=== PATIENT | female | born 1940 | race Caucasian/White ===

== ENCOUNTER 2017-11-18 17:30 | Inpatient (IN) | payer MEDICARE, SELFPAY ==
[2017-11-18] VITALS (12 sets, daily range): BP systolic 105–160; BP diastolic 49–84; PULSE 53–90; RESP 14–22; TEMP 36.1–36.4; O2SAT 97–100; BMI 19.9; BMI 19.3
--- NOTE | 2017-11-18 17:46 | CT_ITS ---
STUDY: CT BRAIN WITHOUT CONTRAST REASON FOR EXAM: Female, 77 years old. Slip and fall. RADIATION DOSAGE (If Supplied By Facility): CTDIvol = ( 44.99 ) mGy, DLP = ( 745.49 ) mGycm TECHNIQUE: Transaxial CT imaging of the brain was performed without administration of intravenous contrast material. Individualized dose optimization techniques were used for this CT. COMPARISON: 10/09/2016 FINDINGS: Normal soft tissue structures. Normal calvarium. There is moderate cerebral atrophy with widening of the extra-axial spaces and ventricular dilatation. There are areas of decreased attenuation within the white matter tracts of the supratentorial brain, consistent with microvascular disease changes. Normal basal ganglia and thalami. Normal brainstem. There is moderate cerebellar atrophy. There is no intracranial hemorrhage. There are no findings of an acute ischemic infarction. There is near complete opacification of the left maxillary sinus and ethmoid paranasal sinuses. CT/Brain/Head without Contrast IMPRESSION: 1. No acute intracranial pathology. 2. Left maxillary sinus and ethmoid paranasal sinus disease Electronically Signed: Gualberto Briseno DO at 21:11 EST Tel , Service support ,
--- NOTE | 2017-11-18 17:46 | RAD_ITS ---
STUDY: X-RAY CHEST REASON FOR EXAM: Female, 77 years old. Status post fall TECHNIQUE: Single frontal view of the chest. COMPARISON: 04/17/2016 FINDINGS: Right shoulder dislocation. There is hyperinflation of the lungs consistent with chronic obstructive lung disease (COPD). Worsening scarring in the right upper lobe. Lungs are otherwise clear. Normal size heart. Normal mediastinum and abundio. Normal visualized pulmonary arteries. Normal visualized aortic arch and descending thoracic aorta. There are diffuse degenerative changes of the visualized thoracic spine. There is degenerative osteoarthritis of the bilateral shoulders. There is no demonstrated abnormality of the visualized soft tissue structures of the upper abdomen. RAD/Chest 1 View (Portable) IMPRESSION: Dislocation of the right shoulder. Scarring in the right upper lobe appears worsening. Lungs are otherwise clear. Electronically Signed: Gualberto Briseno DO at 19:07 EST Tel , Service support ,
--- NOTE | 2017-11-18 17:47 | RAD_ITS ---
STUDY: X-RAY - PELVIS REASON FOR EXAM: Female, 77 years old. Status post fall TECHNIQUE: One view of the pelvis was obtained. COMPARISON: None. FINDINGS: Status post left hip arthroplasty without fracture or dislocation. No evidence of right hip fracture. Osseous degenerative change of the lower lumbar spine and both SI joints. RAD/Pelvis 1 or 2 Views IMPRESSION: No acute findings Electronically Signed: Gualberto Briseno DO at 19:08 EST Tel , Service support ,
--- NOTE | 2017-11-18 17:47 | RAD_ITS ---
STUDY: X-RAY - RIGHT SHOULDER REASON FOR EXAM: Female, 77 years old. Status post fall TECHNIQUE: 2 view(s) of the shoulder. COMPARISON: None. FINDINGS: Acute dislocation of the right shoulder with comminuted fracture of the humeral head and proximal humerus. RAD/Shoulder min 2 Views IMPRESSION: As above Electronically Signed: Gualberto Briseno DO at 19:59 EST Tel , Service support ,
--- NOTE | 2017-11-18 17:47 | EKG12_ITS ---
Test Reason : FALL Blood Pressure : / mmHG Vent. Rate : 070 BPM Atrial Rate : 070 BPM P-R Int : 080 ms QRS Dur : 084 ms QT Int : 448 ms P-R-T Axes : 000 058 -54 degrees QTc Int : 483 ms Somatic/motion artifact Sinus rhythm with short IA with Premature supraventricular complexes Nonspecific ST and T wave abnormality Confirmed by HARDEEP IZQUIERDO, HIRA ([id number]), staff editor NIA HERCULES ([id number] on 11/21/2017 2:13:49 PM Referred By: ANTON Confirmed By:HIRA MEIER MD
[2017-11-18 18:00] LABS: Absolute Lymphocyte Count 1.77 X10^3/ul (0.83-4.51); Absolute Neutrophil Count 9.8 X10^3/uL (2.0-7.7); Eosinophil# 0.02 X10^3/uL; Eosinophils% 0.2 % (0-5); Hematocrit 39.2 % (37-47); Hemoglobin 12.1 g/dl (12.0-15.0); Lymphocyte # 1.77 X10^3/ul (4.0); Mean Corp Hgb Conc 30.9 g/gl (32-36); Mean Corpuscular Hgb 30.1 pg (27.0-32.0); Mean Corpuscular Volume 97.5 fL (81-99); Mean Platelet Vol. 11.1 fl (6.2-12.0); Monocyte# 1.02 X10^3/uL; Neutrophil # 9.84 X10^3/uL (2.7-7.7); Neutrophil % 77.6 % (47-70); Platelet Count 507 K/mm3 (150-450); RBC Distribution Width CV 14.1 % (11.6-14.6); RBC Distribution Width SD 49.1 fl (35.1-43.9); Red Blood Count 4.02 M/mm3 (4.2-5.4); White Blood Count 12.7 K/mm3 (4.4-11.0)
[2017-11-18 18:01] LABS: POSITIVE COUNT NO; POSITIVE DIFFERENTIAL NO; POSITIVE MORPHOLOGY NO
[2017-11-18] MEDS: 0.9% Normal Saline 1,000 ML 1000 ML IV (18:05)
[2017-11-18 18:21] LABS: Bacteria 0 SEEN /hpf (None Seen); Squamous Epithelial Cells - UA 0 SEEN /hpf (5-10)
[2017-11-18 18:24] LABS: Lactic Acid 1.9 mmol/L (0.4-2.0)
[2017-11-18 18:25] LABS: Anion Gap 12 (5-15); BUN 52 mg/dL (7-18); BUN/Creat Ratio 67.4 RATIO (10-20); Calcium,Total 9.8 mg/dL (8.5-10.1); Chloride 116 mmol/L (98-107); Creatinine, Serum 0.77 mg/dL (0.55-1.02); EST Glomerular Filtration Rate 77 mL/min (>60); Est Glom Filt Rate - Afr Amer 94 mL/min (>60); Estimated Creatinine Clearance 39.82 ml/min; Glucose 115 mg/dL (70-110); Potassium 3.4 mmol/L (3.5-5.1); Sodium Level 154 mmol/L (136-145)
[2017-11-18 18:35] LABS: Color, Urine Yellow (Yellow); Glucose, Dipstick Normal (Normal); Ketone-Dipstick 15 mg/dl (Negative); Leukocyte Esterase-Dipstick 25 /ul (Negative); Nitrite-Dipstick Negative (Negative); Occult Blood-Urine Negative /ul (Negative); Protein-Dipstick Negative (Negative); Urine Bilirubin Dipstick Negative (Negative); Urine Clarity Clear (Clear); Urine Urobilinogen Normal (Normal)
[2017-11-18 18:46] LABS: CPK Total, Creatine Kinase 219 U/L (26-192)
[2017-11-18 18:52] LABS: Hyaline Cast 0-5 SEEN /lpf (0-5)
[2017-11-18 18:55] LABS: Red Blood Cells-Urine 0-5 SEEN /hpf (0-5)
[2017-11-18 18:56] LABS: Mucous, Urine 1+ /hpf (<or=2+)
[2017-11-18 18:57] LABS: White Blood Cells 10-25 SEEN /hpf (0-5)
--- NOTE | 2017-11-18 19:03 | RAD_ITS ---
STUDY: X-RAY - RIGHT SHOULDER REASON FOR EXAM: Female, 77 years old. Post shoulder reduction. TECHNIQUE: 2 view(s) of the shoulder. COMPARISON: Prior shoulder radiograph of November 18, 2017. Prior chest radiograph of April 17, 2016 FINDINGS: The glenohumeral joint is reduced to anatomic location. Mild degenerative changes of the acromioclavicular joint which is normally located. Old right clavicle fracture. Comminuted fracture of the humeral neck with impaction and mild medial anterior displacement. Fracture related soft tissue swelling. Infiltrate and volume loss in the right upper lobe included in the [id number]. RAD/Shoulder min 2 Views IMPRESSION: Anatomic reduction of the glenohumeral joint. Acute comminuted right humeral neck fracture with mild medial and anterior displacement. Mild degenerative change of the acromioclavicular joint. Old clavicle fracture. Infiltrate and volume loss in the right upper lobe as described on portable chest radiograph of the same day. Electronically Signed: Maura Shore MD at 21:33 EST , Service support ,
--- NOTE | 2017-11-18 19:32 | ED.VISSUMM ---
- ER Visit Summary Date of Service: 11/18/17 Chief Complaint: Fall History of Present Illness: The patient is a [address] Shah. She is a poor informant. She fell she believes 6 days ago. States that she fell over her walker. She is unsure whether she had a loss of consciousness. She reports that she has right shoulder pain with any movement. She denies any hip, neck, back, or head pain. She reports that she has chest pain that is not too bad. Patient complains of a cough is productive green sputum without blood. She also complains of generalized weakness. Family reports that they last saw her 5 days ago and she has not gotten her newspaper since that time. Patient reports that she was unable to get back up and has been scooting around in her house. Physical Examination: Vitals: Stable. Afebrile. General: Well-nourished and well-developed. Head: Normocephalic contusions to the bottom of her chin. Neck: Supple, no lymphadenopathy. No JVD. Nontender. Cardiovascular: Regular rate and rhythm. 2 out of 6 systolic murmur. Respiratory: No respiratory distress. Clear to auscultation bilaterally. Abdominal: Soft, moderate suprapubic tenderness with a distended bladder, nondistended, normal bowel sounds. No guarding, rebound, or peritoneal signs. Back: Nontender. Extremities: Obvious deformity of her right shoulder with an anterior dislocation. Severely tender on palpation. She has contusions over her right shoulder and clavicle. There is also contusion over the right greater trochanter. However, she has no pain here. No pain with internal/external rotation of her hip.. Skin: Normal color, no rash. Neurologic: Alert and oriented ?3. Cranial nerves II through XII are intact. Normal strength and sensation. Psych: Normal affect. Test Results: EKG is sinus at [address] changes. Troponin was less than 0.02. CPK is 219. Lactic acid is 1.9. UA shows a UTI. Chem-7 is marked for sodium 154, potassium 3.4, chloride 116, BUN of 52, glucose 115. CBC is marked for white count of 12.7, platelets 507, segmented neutrophils 70, lymphs at 14. Right shoulder x-ray shows a proximal humeral fracture with an anterior dislocation. Chest x-ray shows a right upper lobe infiltrate. Pelvis x-ray shows no acute disease. CT brain shows chronic changes. Emergency Department Course and Treatment: Patient was given 2 L of normal saline. She had blood cultures obtained and was given Levaquin IV. She had procedural sedation undertaken with propofol and her shoulder was reduced. She was given fentanyl IV prior to this. She tolerated it well. She was then placed in a sling and swath. Treatment Plan: The patient was discussed with Dr. Bell in the hospitalist. She will be admitted to the hospital for further evaluation and treatment. Disposition: Admitted in serious condition. Impression: 1. Pneumonia, community-acquired. 2. UTI. 3. Dehydration. 4. Fall. 5. Right proximal humerus fracture. 6. Right shoulder dislocation. 7. Procedural sedation. 8. Reduction right shoulder dislocation. This note was generated with [employer] dictation software. It may contain incorrect words, spelling, and punctuation that were not noted in review of the chart prior to signing ED Disposition - Plan for ED Patient: Chief Complaint: Fall Referrals: Marilee Shah MD [Primary Care Provider] -
[2017-11-18] MEDS: fentaNYL 100 MCG/2 ML Ampul 50 MCG IV (19:34)
[2017-11-18] MEDS: Propofol 200 MG/20 ML Vial IV BOLUS (20:20)
--- NOTE | 2017-11-18 21:35 | PCM.HP.STD ---
Problem List (1) Hyperlipidemia Status: Chronic Qualifiers: Hyperlipidemia type: unspecified Qualified Code(s): E78.5 - Hyperlipidemia, unspecified (2) Hypertension Status: Chronic Qualifiers: Hypertension type: essential hypertension Qualified Code(s): I10 - Essential (primary) hypertension (3) Depression Status: Chronic Qualifiers: Depression Type: unspecified Qualified Code(s): F32.9 - Major depressive disorder, single episode, unspecified (4) Rhabdomyolysis Status: Acute (5) Right humeral fracture Status: Acute Qualifiers: Encounter type: initial encounter Humerus Location: surgical neck Fracture type: closed Fracture morphology: 2-part Fracture alignment: displaced Qualified Code(s): S42.221A - 2-part displaced fracture of surgical neck of right humerus, initial encounter for closed fracture (6) Dislocation of right shoulder joint Status: Acute Qualifiers: Encounter type: initial encounter Qualified Code(s): S43.004A - Unspecified dislocation of right shoulder joint, initial encounter (7) Fall Status: Acute Qualifiers: Encounter type: initial encounter Qualified Code(s): W19.XXXA - Unspecified fall, initial encounter (8) Pneumonia Status: Acute Qualifiers: Pneumonia type: due to unspecified organism Laterality: right Lung location: upper lobe of lung Qualified Code(s): J18.1 - Lobar pneumonia, unspecified organism (9) UTI (urinary tract infection) Status: Acute Qualifiers: Urinary tract infection type: acute cystitis Hematuria presence: without hematuria Qualified Code(s): N30.00 - Acute cystitis without hematuria (10) Urinary retention Status: Acute History of Present Illness Date of Admission: 11/18/17 Chief Complaint: Fall, R shoulder and arm pain, Recent cough The patient is a 77 y/o F w/ PMHx: HTN, HLD, Depression, Frequent Fall History who presents to the [facility] ED on 11/18/17 w/ history of mechanical fall while attempting to turn on a lamp, noted to have fallen over her walker, landing hard on her R shoulder with following severe pain, deformity and inability to get up of the floor, likely for 4-5 days. She notes she urinated on herself at least twice during that timeline. She notes she was unable to reach the phone. Family eventually found her on the floor and EMS was called. In the ED work-up included T 97, HR 60-70, + Orthostatic VS, BP 129/60, RR 14, 100% on 2L NC, CBC w/ WBC 12.7, Hgb 12.1, Plts 507 with L shift, BMP w/ Na 154, K 3.4, Chl 116, BUN/Cr 52/0.77, glucose 115, TCK 219, LA 1.9, trop < 0.02, UA not marked appearing, UCx pending, CXR w/ dislocation R shoulder, scarring RUL worse than prior CXR, CT Head without acute findings aside L maxillary sinus and ethmoid paranasal sinus disease, plain film pelvis unremarkable, plain film shoulder s/p reduction w/ anatomic reduction glenohumeral joint, acute comminuted right humeral neck fracture with mild medial and anterior displacement with noted old clavicular fracture, infiltrate and volume loss right upper lobe. In the ED patient administered propofol bolus for reversal dislocation. Additional regimen included fentanyl and levaquin. 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) Allergies atorvastatin calcium [From Lipitor] Allergy (Verified 11/18/17 18:29) Other niacin [From Niaspan Extended-Release] Allergy (Verified 11/18/17 18:29) Shortness of breath venom-honey bee [bee venom (honey bee)] Allergy (Verified 11/18/17 18:29) Anaphylaxis Home Medications: Ambulatory Orders Medication Instructions Recorded Aspirin [Aspirin, Baby] 81 mg PO DAILY@0800 04/17/16 Cyanocobalamin [Vitamin B12] 1,000 mcg PO DAILY@0800 04/17/16 Ezetimibe [Zetia] 10 mg PO DAILY 04/17/16 Famotidine [Pepcid] 40 mg PO DAILY PRN 04/17/16 Hydrochlorothiazide 12.5 mg PO DAILY 04/17/16 Irbesartan [Avapro] 75 mg PO DAILY 04/17/16 Nadolol [Corgard (Beta Randee)] 40 mg PO DAILY 04/17/16 Sertraline HCl [Zoloft] 100 mg PO DAILY 04/17/16 Cholecalciferol (Vitamin D3) 2,000 unit PO DAILY 11/18/17 [Vitamin D3] Bar[place]aria-3 Fatty Acids/Fish Oil [Fish 1 each PO DAILY 11/18/17 Oil 1,000 mg Capsule] Pyridoxine HCl [Vitamin B-6] 100 mg PO DAILY 11/18/17 Surgical History: - - L Hip ORIF, Cholecystectomy, T+A, L great toe bunionectomy. 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 Denies: Chills, Fever, Weight Change HEENT: Denies: Head Aches, Sinus Congestion, Sinus Drainage Cardiovascular: Denies: Chest Pain, Palpitations Respiratory: Reports: Cough. Denies: Shortness of Breath, Shortness of breath at rest, Shortness of breath upon exertion, Sputum production, Wheezing Gastrointestinal: Denies: Abdominal Pain, Nausea, Vomiting Genitourinary: Denies: Dysuria Musculoskeletal: Reports: Arm Pain, Back Pain, Hand Pain, Joint stiffness, Joint swelling, Joint Tenderness. Denies: Joint Pain Skin: Denies: Rash, Wounds Neurological: Denies: Numbness, Tingling, Focal weakness Psychiatric: Reports: Depression. Denies: Anxiety, Homicidal Ideations, Suicidal Ideations Hematologic/ Lymphatic: Denies: Easy Bruising, Easy Bleeding VTE Information - Inpt Only VTE Present on Admission: No VTE Mechan Device Prophylaxis: SCD's VTE Pharm Prophylaxis ordered?: Yes Patient Problems: Active and Suspected Problems Rhabdomyolysis (Acute) Right humeral fracture (Acute) Dislocation of right shoulder joint (Acute) Fall (Acute) Pneumonia (Acute) UTI (urinary tract infection) (Acute) Urinary retention (Acute) Subjective: Seated upright in the ED bed, swath RUE in place, notes pain currently controlled. Objective: Physical Examination: General: awake, alert, oriented x 3 and cooperative, seated upright in the ED bed, notes pain currently controlled. Skin: normal color, turgor, no icterus, cyanosis. HEENT: AT/NC, EOMI, PERRLA, dry MM, no carotid bruits or JVD noted. Lungs: Diminished BS diffusely, moderate effort, moderate decrease BL bases, no rales, ronchi or wheezing. Heart: Regular rate and rhythm; no gallop, rub audible. Abdomen: soft, thin habitus, NTTP, ND, normal BS, no HSM. Extremities: no cyanosis, clubbing, s/p fall w/ RUE in swath, s/p shoulder dislocation reduction. Neurological: patient awake, alert, oriented x 3; cognitive function intact; pupils equally reactive to light and accomodation; cranial nerves II-XII grossly normal, moving all 4 extremities except limited RUE secondary to fracture and recent reduction shoulder, able to move hand/fingers, distal pulses intact, strenght severely globally decreased. Psychiatric: affect appears normal, no acute evidence of depressive or anxiety feelings. - Physical Exam Vital Signs Temp Pulse Resp BP Pulse Ox 97.0 F L 72 14 129/60 H 100 11/18/17 17:32 11/18/17 21:00 11/18/17 21:00 11/18/17 21:00 11/18/17 21:00 Oxygen Flow Rate [3] 2 Oxygen Flow Rate [2] 2 Oxygen Flow Rate 2 Oxygen Delivery Method [3] Nasal Cannula Oxygen Delivery Method [2] Nasal Cannula Oxygen Delivery Method [1 ( Nasal Cannula Initial Baseline)] Oxygen Delivery Method Nasal Cannula Weight: 116 lb 2.938 oz Body Mass Index (BMI) 19.9 Laboratory Tests Past 24 Hrs 11/18/17 11/18/17 11/18/17 17:45 17:45 17:45 WBC 12.7 H RBC 4.02 L Hgb 12.1 Hct 39.2 MCV 97.5 MCH 30.1 MCHC 30.9 L RDW 14.1 RDW Differential 49.1 H Plt Count 507 H MPV 11.1 Immature Gran % (Auto) 0.200 Neut % (Auto) 77.6 H Lymph % (Auto) 14.0 L [place] % (Auto) 8.0 Eos % (Auto) 0.2 Baso % (Auto) 0.0 Absolute Neuts (auto) 9.8 H Absolute Lymphs (auto) 1.77 Total Counted Not Reportable Sodium 154 H Potassium 3.4 L Chloride 116 H Carbon Dioxide 26.0 Anion Gap 12 BUN 52 H Creatinine 0.77 Estim Creat Clear Calc 39.82 Est GFR (MDRD) Af Amer 94 Est GFR (MDRD) Non-Af 77 BUN/Creatinine Ratio 67.4 H Glucose 115 H Lactic Acid 1.9 Calcium 9.8 Total Creatine Kinase Troponin I < 0.02 Urine Color Urine Clarity Urine pH Ur Specific [place] Urine Protein Urine Glucose (UA) Urine Ketones Urine Occult Blood Urine Nitrite Urine Bilirubin Urine Urobilinogen Ur Leukocyte Esterase Urine RBC Urine WBC Ur Squamous Epith Cells Urine Bacteria Hyaline Casts Urine Mucus 11/18/17 11/18/17 17:45 18:00 WBC RBC Hgb Hct MCV MCH MCHC RDW RDW Differential Plt Count MPV Immature Gran % (Auto) Neut % (Auto) Lymph % (Auto) [place] % (Auto) Eos % (Auto) Baso % (Auto) Absolute Neuts (auto) Absolute Lymphs (auto) Total Counted Sodium Potassium Chloride Carbon Dioxide Anion Gap BUN Creatinine Estim Creat Clear Calc Est GFR (MDRD) Af Amer Est GFR (MDRD) Non-Af BUN/Creatinine Ratio Glucose Lactic Acid Calcium Total Creatine Kinase 219 H Troponin I Urine Color Yellow Urine Clarity Clear Urine pH 6.0 Ur Specific [place] 1.020 Urine Protein Negative Urine Glucose (UA) Normal Urine Ketones 15 H Urine Occult Blood Negative Urine Nitrite Negative Urine Bilirubin Negative Urine Urobilinogen Normal Ur Leukocyte Esterase 25 H Urine RBC 0-5 SEEN Urine WBC 10-25 SEEN Ur Squamous Epith Cells 0 SEEN Urine Bacteria 0 SEEN Hyaline Casts 0-5 SEEN Urine Mucus 1+ Assessment/Plan Active and Suspected Problems Rhabdomyolysis (Acute) Right humeral fracture (Acute) Dislocation of right shoulder joint (Acute) Fall (Acute) Pneumonia (Acute) UTI (urinary tract infection) (Acute) Urinary retention (Acute) The patient is a 77 y/o F w/ PMHx: HTN, HLD, Depression, Frequent Fall History who presents to the [facility] ED on 11/18/17 w/ history of mechanical fall while attempting to turn on a lamp, noted to have fallen over her walker, landing hard on her R shoulder with following severe pain, deformity and inability to get up of the floor, likely for 4-5 days. (1) ? Community Acquired Pneumonia: CXR in the ED w/ ? RUL Infiltrate versus scarring, patient admitted in the ED to ongoing productive cough, although she notes this is chronic, denied fever, chills or dyspnea associated. Will admit to MS, maintain on oxygen with wean as tolerated to room air, continue ATC duonebs, PRN albuterol, maintained on IV Rocephin and Azithromycin, HOB, IS parameters w/ pending sputum cultures and urine antigens. Bld cx x 2 obtained in the ED. Will to be cautious request additionally Speech evaluation. Again, lower suspicion for PNA, suspect scarring but given complaints will treat PNA. (2) ? Acute Urinary Tract Infection w/ Urinary Retention: UA upon ED evaluation not remarkable however did have urinary retention upon ED presentation and they were concerned for possible UTI, will continue IVFs, monitor I/Os, continue IV Rocephin as noted above pending UCx w/ transition as able pending sensitivities and speciation. Bld cx x 2 obtained in the ED. Zacarias in place. (3) Fall w/ RUE Shoulder Dislocation and Concurrent Right humeral neck fracture: Will maintain RUE in swath, s/p reduction shoulder dislocation successfully in the ED, NWB, pain regimen, fall precautions, PT and OT consultation, likely will need SNF. Suspect non-operable. (4) Mechanical Fall w/ Down Status for 4-5 Days w/ Mild Rhabdomyolysis, Dehydration: Admission TCK 219, zacarias in place, continue aggressive hydration, trend TCK. (5) Hypokalemia: Admission K 3.4, supplementation administered, repeat BMP in AM. (6) Hyperglycemia: Admission glucose 115, HgbA1c pending. (7) Hypertension: Continue home regimen including avapro, nadolol with hold parameters, hold HCTZ with re-addition once appropriate, PRN hydralazine. (8) Hyperlipidemia: Continue home zetia regimen. (9) Depression: Continue home sertraline regimen. (10) DVT prophylaxis: SCDs, lovenox. (11) CODE status: Discussed CODE status at length including difference between FULL code, DNR-CCA and DNR-CC status. Following discussions about the differences in these status, confirmed living will and advanced directives in place which were reviewed and will maintain DNR-CCA, no intubation status. Daughter is HCPOA and was present. Advanced Care Planning Face to Face Time: 18 minutes. Code Visit Inpatient E&M: 29241 Init Hosp L3 Procedures: 60671 Advncd Care Plan 30 Min
--- NOTE | 2017-11-18 21:40 | HP.PCM_ITS ---
Problem List (1) Hyperlipidemia Status: Chronic Qualifiers: Hyperlipidemia type: unspecified Qualified Code(s): E78.5 - Hyperlipidemia , unspecified (2) Hypertension Status: Chronic Qualifiers: Hypertension type: essential hypertension Qualified Code(s): I10 - Essential (primary) hypertension (3) Depression Status: Chronic Qualifiers: Depression Type: unspecified Qualified Code(s): F32.9 - Major depressive disorder, single episode, unspecified (4) Rhabdomyolysis Status: Acute (5) Right humeral fracture Status: Acute Qualifiers: Encounter type: initial encounter Humerus Location: surgical neck Fracture type: closed Fracture morphology: 2-part Fracture alignment: displaced Qualified Code(s): S42.221A - 2-part displaced fracture of surgical neck of right humerus, initial encounter for closed fracture (6) Dislocation of right shoulder joint Status: Acute Qualifiers: Encounter type: initial encounter Qualified Code(s): S43.004A - Unspecified dislocation of right shoulder joint, initial encounter (7) Fall Status: Acute Qualifiers: Encounter type: initial encounter Qualified Code(s): W19.XXXA - Unspecified fall, initial encounter (8) Pneumonia Status: Acute Qualifiers: Pneumonia type: due to unspecified organism Laterality: right Lung location: upper lobe of lung Qualified Code(s): J18.1 - Lobar pneumonia, unspecified organism (9) UTI (urinary tract infection) Status: Acute Qualifiers: Urinary tract infection type: acute cystitis Hematuria presence: without hematuria Qualified Code(s): N30.00 - Acute cystitis without hematuria (10) Urinary retention Status: Acute History of Present Illness Date of Admission: 11/18/17 Chief Complaint: Fall, R shoulder and arm pain, Recent cough The patient is a 77 y/o F w/ PMHx: HTN, HLD, Depression, Frequent Fall History who presents to the [facility] ED on 11/18/17 w/ history of mechanical fall while attempting to turn on a lamp, noted to have fallen over her walker, landing hard on her R shoulder with following severe pain, deformity and inability to get up of the floor, likely for 4-5 days. She notes she urinated on herself at least twice during that timeline. She notes she was unable to reach the phone. Family eventually found her on the floor and EMS was called. In the ED work-up included T 97, HR 60-70, + Orthostatic VS, BP 129/60, RR 14, 100% on 2L NC, CBC w/ WBC 12.7, Hgb 12.1, Plts 507 with L shift, BMP w/ Na 154, K 3.4, Chl 116, BUN /Cr 52/0.77, glucose 115, TCK 219, LA 1.9, trop < 0.02, UA not marked appearing , UCx pending, CXR w/ dislocation R shoulder, scarring RUL worse than prior CXR , CT Head without acute findings aside L maxillary sinus and ethmoid paranasal sinus disease, plain film pelvis unremarkable, plain film shoulder s/p reduction w/ anatomic reduction glenohumeral joint, acute comminuted right humeral neck fracture with mild medial and anterior displacement with noted old clavicular fracture, infiltrate and volume loss right upper lobe. In the ED patient administered propofol bolus for reversal dislocation. Additional regimen included fentanyl and levaquin. 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) Allergies atorvastatin calcium [From Lipitor] Allergy (Verified 11/18/17 18:29) Other niacin [From Niaspan Extended-Release] Allergy (Verified 11/18/17 18:29) Shortness of breath venom-honey bee [bee venom (honey bee)] Allergy (Verified 11/18/17 18:29) Anaphylaxis Home Medications: Ambulatory Orders Medication Instructions Recorded Aspirin [Aspirin, Baby] 81 mg PO DAILY@0800 04/17/16 Cyanocobalamin [Vitamin B12] 1,000 mcg PO DAILY@0800 04/17/16 Ezetimibe [Zetia] 10 mg PO DAILY 04/17/16 Famotidine [Pepcid] 40 mg PO DAILY PRN 04/17/16 Hydrochlorothiazide 12.5 mg PO DAILY 04/17/16 Irbesartan [Avapro] 75 mg PO DAILY 04/17/16 Nadolol [Corgard (Beta Randee)] 40 mg PO DAILY 04/17/16 Sertraline HCl [Zoloft] 100 mg PO DAILY 04/17/16 Cholecalciferol (Vitamin D3) 2,000 unit PO DAILY 11/18/17 [Vitamin D3] [place]-3 Fatty Acids/Fish Oil [Fish 1 each PO DAILY 11/18/17 Oil 1,000 mg Capsule] Pyridoxine HCl [Vitamin B-6] 100 mg PO DAILY 11/18/17 Surgical History: - - L Hip ORIF, Cholecystectomy, T+A, L great toe bunionectomy. Psychiatric History: Depression [employer] History: No pertinent [employer] history Lives: Alone Smoking Status: Never smoker Tobacco Use: Non-smoker Alcohol: None Drugs: None - *Family History Maternal History Items: Heart Disease Paternal History Items: Heart Disease Review of Systems Constitutional: Reports: Malaise, Weakness, Fatigue. Denies: Chills, Fever, Weight Change HEENT: Denies: Head Aches, Sinus Congestion, Sinus Drainage Cardiovascular: Denies: Chest Pain, Palpitations Respiratory: Reports: Cough. Denies: Shortness of Breath, Shortness of breath at rest, Shortness of breath upon exertion, Sputum production, Wheezing Gastrointestinal: Denies: Abdominal Pain, Nausea, Vomiting Genitourinary: Denies: Dysuria Musculoskeletal: Reports: Arm Pain, Back Pain, Hand Pain, Joint stiffness, Joint swelling, Joint Tenderness. Denies: Joint Pain Skin: Denies: Rash, Wounds Neurological: Denies: Numbness, Tingling, Focal weakness Psychiatric: Reports: Depression. Denies: Anxiety, Homicidal Ideations, Suicidal Ideations Hematologic/ Lymphatic: Denies: Easy Bruising, Easy Bleeding VTE Information - Inpt Only VTE Present on Admission: No VTE Mechan Device Prophylaxis: SCD's VTE Pharm Prophylaxis ordered?: Yes Patient Problems: Active and Suspected Problems Rhabdomyolysis (Acute) Right humeral fracture (Acute) Dislocation of right shoulder joint (Acute) Fall (Acute) Pneumonia (Acute) UTI (urinary tract infection) (Acute) Urinary retention (Acute) Subjective: Seated upright in the ED bed, swath RUE in place, notes pain currently controlled. Objective: Physical Examination: General: awake, alert, oriented x 3 and cooperative, seated upright in the ED bed, notes pain currently controlled. Skin: normal color, turgor, no icterus, cyanosis. HEENT: AT/NC, EOMI, PERRLA, dry MM, no carotid bruits or JVD noted. Lungs: Diminished BS diffusely, moderate effort, moderate decrease BL bases, no rales, ronchi or wheezing. Heart: Regular rate and rhythm; no gallop, rub audible. Abdomen: soft, thin habitus, NTTP, ND, normal BS, no HSM. Extremities: no cyanosis, clubbing, s/p fall w/ RUE in swath, s/p shoulder dislocation reduction. Neurological: patient awake, alert, oriented x 3; cognitive function intact; pupils equally reactive to light and accomodation; cranial nerves II-XII grossly normal, moving all 4 extremities except limited RUE secondary to fracture and recent reduction shoulder, able to move hand/fingers, distal pulses intact, strenght severely globally decreased. Psychiatric: affect appears normal, no acute evidence of depressive or anxiety feelings. - Physical Exam Vital Signs Temp Pulse Resp BP Pulse Ox 97.0 F L 72 14 129/60 H 100 11/18/17 17:32 11/18/17 21:00 11/18/17 21:00 11/18/17 21:00 11/18/17 21:00 Oxygen Flow Rate [3] 2 Oxygen Flow Rate [2] 2 Oxygen Flow Rate 2 Oxygen Delivery Method [3] Nasal Cannula Oxygen Delivery Method [2] Nasal Cannula Oxygen Delivery Method [1 ( Nasal Cannula Initial Baseline)] Oxygen Delivery Method Nasal Cannula Weight: 116 lb 2.938 oz Body Mass Index (BMI) 19.9 Laboratory Tests Past 24 Hrs 11/18/17 11/18/17 11/18/17 17:45 17:45 17:45 WBC 12.7 H RBC 4.02 L Hgb 12.1 Hct 39.2 MCV 97.5 MCH 30.1 MCHC 30.9 L RDW 14.1 RDW Differential 49.1 H Plt Count 507 H MPV 11.1 Immature Gran % (Auto) 0.200 Neut % (Auto) 77.6 H Lymph % (Auto) 14.0 L [place] % (Auto) 8.0 Eos % (Auto) 0.2 Baso % (Auto) 0.0 Absolute Neuts (auto) 9.8 H Absolute Lymphs (auto) 1.77 Total Counted Not Reportable Sodium 154 H Potassium 3.4 L Chloride 116 H Carbon Dioxide 26.0 Anion Gap 12 BUN 52 H Creatinine 0.77 Estim Creat Clear Calc 39.82 Est GFR (MDRD) Af Amer 94 Est GFR (MDRD) Non-Af 77 BUN/Creatinine Ratio 67.4 H Glucose 115 H Lactic Acid 1.9 Calcium 9.8 Total Creatine Kinase Troponin I < 0.02 Urine Color Urine Clarity Urine pH Ur Specific [place] Urine Protein Urine Glucose (UA) Urine Ketones Urine Occult Blood Urine Nitrite Urine Bilirubin Urine Urobilinogen Ur Leukocyte Esterase Urine RBC Urine WBC Ur Squamous Epith Cells Urine Bacteria Hyaline Casts Urine Mucus 11/18/17 11/18/17 17:45 18:00 WBC RBC Hgb Hct MCV MCH MCHC RDW RDW Differential Plt Count MPV Immature Gran % (Auto) Neut % (Auto) Lymph % (Auto) [place] % (Auto) Eos % (Auto) Baso % (Auto) Absolute Neuts (auto) Absolute Lymphs (auto) Total Counted Sodium Potassium Chloride Carbon Dioxide Anion Gap BUN Creatinine Estim Creat Clear Calc Est GFR (MDRD) Af Amer Est GFR (MDRD) Non-Af BUN/Creatinine Ratio Glucose Lactic Acid Calcium Total Creatine Kinase 219 H Troponin I Urine Color Yellow Urine Clarity Clear Urine pH 6.0 Ur Specific [place] 1.020 Urine Protein Negative Urine Glucose (UA) Normal Urine Ketones 15 H Urine Occult Blood Negative Urine Nitrite Negative Urine Bilirubin Negative Urine Urobilinogen Normal Ur Leukocyte Esterase 25 H Urine RBC 0-5 SEEN Urine WBC 10-25 SEEN Ur Squamous Epith Cells 0 SEEN Urine Bacteria 0 SEEN Hyaline Casts 0-5 SEEN Urine Mucus 1+ Assessment/Plan Active and Suspected Problems Rhabdomyolysis (Acute) Right humeral fracture (Acute) Dislocation of right shoulder joint (Acute) Fall (Acute) Pneumonia (Acute) UTI (urinary tract infection) (Acute) Urinary retention (Acute) The patient is a 77 y/o F w/ PMHx: HTN, HLD, Depression, Frequent Fall History who presents to the [facility] ED on 11/18/17 w/ history of mechanical fall while attempting to turn on a lamp, noted to have fallen over her walker, landing hard on her R shoulder with following severe pain, deformity and inability to get up of the floor, likely for 4-5 days. (1) ? Community Acquired Pneumonia: CXR in the ED w/ ? RUL Infiltrate versus scarring, patient admitted in the ED to ongoing productive cough, although she notes this is chronic, denied fever, chills or dyspnea associated. Will admit to MS, maintain on oxygen with wean as tolerated to room air, continue ATC duonebs, PRN albuterol, maintained on IV Rocephin and Azithromycin, HOB, IS parameters w/ pending sputum cultures and urine antigens. Bld cx x 2 obtained in the ED. Will to be cautious request additionally Speech evaluation. Again, lower suspicion for PNA, suspect scarring but given complaints will treat PNA. (2) ? Acute Urinary Tract Infection w/ Urinary Retention: UA upon ED evaluation not remarkable however did have urinary retention upon ED presentation and they were concerned for possible UTI, will continue IVFs, monitor I/Os, continue IV Rocephin as noted above pending UCx w/ transition as able pending sensitivities and speciation. Bld cx x 2 obtained in the ED. Zacarias in place. (3) Fall w/ RUE Shoulder Dislocation and Concurrent Right humeral neck fracture : Will maintain RUE in swath, s/p reduction shoulder dislocation successfully in the ED, NWB, pain regimen, fall precautions, PT and OT consultation, likely will need SNF. Suspect non-operable. (4) Mechanical Fall w/ Down Status for 4-5 Days w/ Mild Rhabdomyolysis, Dehydration: Admission TCK 219, zacarias in place, continue aggressive hydration, trend TCK. (5) Hypokalemia: Admission K 3.4, supplementation administered, repeat BMP in AM. (6) Hyperglycemia: Admission glucose 115, HgbA1c pending. (7) Hypertension: Continue home regimen including avapro, nadolol with hold parameters, hold HCTZ with re-addition once appropriate, PRN hydralazine. (8) Hyperlipidemia: Continue home zetia regimen. (9) Depression: Continue home sertraline regimen. (10) DVT prophylaxis: SCDs, lovenox. (11) CODE status: Discussed CODE status at length including difference between FULL code, DNR-CCA and DNR-CC status. Following discussions about the differences in these status, confirmed living will and advanced directives in place which were reviewed and will maintain DNR-CCA, no intubation status. Daughter is HCPOA and was present. Advanced Care Planning Face to Face Time: 18 minutes. Code Visit Inpatient E&M: 03830 Init Hosp L3 Procedures: 95879 Advncd Care Plan 30 Min
--- NOTE | 2017-11-18 22:19 | ED.RN ---
MED SURG FALL, RUE FX, SHOULDER DISLOCATION, MILD RHABDO, ? PNA, ?UTI WHITE
[2017-11-18 23:35] LABS: Magnesium 2.8 mg/dL (1.6-2.6)
[2017-11-19] VITALS (8 sets, daily range): BP systolic 107–139; BP diastolic 50–60; PULSE 57–77; RESP 16–18; TEMP 36.4–36.8; O2SAT 94–95
[2017-11-19 00:03] LABS: Hemoglobin A1c 5.1 % (4.2-6.3)
[2017-11-19] MEDS: Ceftriaxone 1 GM/50 ML BAG IV ×2 (00:29→10:06)
[2017-11-19] MEDS: 0.9% NaCl Peripheral Flush Adult/Peds IV (00:30)
[2017-11-19] MEDS: 0.9% Normal Saline 1,000 ML 150 ML IV ×2 (00:30→19:30)
[2017-11-19] MEDS: Ipratropium/Albuterol Sulfate 3 ML AMPUL.NEB INHALATION ×3 (01:20→13:01)
--- NOTE | 2017-11-19 08:04 | CT_ITS ---
STUDY: CT UPPER EXTREMITY WITHOUT CONTRAST RIGHT REASON FOR EXAM: Female, 77 years old. Right humerus fracture RADIATION DOSAGE (If Supplied By Facility): CTDIvol = ( 24.58 ) mGy, DLP = ( 413.10 ) mGycm. Individualized dose optimization techniques were used for this CT.? TECHNIQUE: Duplex images of the right upper extremity were obtained from the superior aspect of the right clavicle to the mid right humerus. Sagittal coronal 3-D reformatted images are provided. COMPARISON: November 18, 2017 right shoulder x-ray FINDINGS: There is a comminuted impacted intra-articular fracture of the right humerus. The impacted shaft abuts the inferior edge of the glenoid rim on image #39 and coronal views. The axial views show a listed appearance of the inferior edge of the glenoid suggestive of probable labral injury. There is soft tissue edema surrounding the shoulder joint. There is a joint effusion. There is partial visualization of degenerative change in the cervical spine. There is medial displacement of the distal fragment. Humeral head appears to maintain its location in the glenohumeral joint. There is a buckled fracture fragment in the lesser and greater tuberosities. There is visualization of the right apex which shows a band of right upper lobe bronchiectasis and consolidation. This is similar to the prior study November 18, 2017 and worse since April 17, 2016 CT/Extremity Upper without Contra IMPRESSION: Comminuted impacted fracture of the proximal right humerus is medial displacement of the distal fragment Probable inferior labral injury. Small subacromial fluid collection. Soft tissue swelling Incidental visualization of worse consolidation bronchiectasis in the right upper lobe which may represent atelectasis superimposed on pre-existing lung disease recommend follow-up CT scan of the chest when appropriate. Electronically Signed: Radha Desai MD at 9:18 EST Tel , Service support ,
[2017-11-19 08:26] LABS: Absolute Lymphocyte Count 1.43 X10^3/ul (0.83-4.51); Absolute Neutrophil Count 6.7 X10^3/uL (2.0-7.7); Basophil# 0.01 X10^3/uL; Basophil% 0.1 % (0-1); Eosinophils% 1.1 % (0-5); Hematocrit 29.9 % (37-47); Hemoglobin 9.3 g/dl (12.0-15.0); Lymphocyte # 1.43 X10^3/ul (4.0); Lymphocyte % 16.1 % (19-41); Mean Corp Hgb Conc 31.1 g/gl (32-36); Mean Corpuscular Hgb 30.3 pg (27.0-32.0); Mean Corpuscular Volume 97.4 fL (81-99); Mean Platelet Vol. 10.4 fl (6.2-12.0); Monocyte# 0.67 X10^3/uL; Monocyte% 7.5 % (0-10); Neutrophil # 6.66 X10^3/uL (2.7-7.7); Neutrophil % 74.9 % (47-70); Platelet Count 273 K/mm3 (150-450); RBC Distribution Width CV 14.4 % (11.6-14.6); RBC Distribution Width SD 49.7 fl (35.1-43.9); Red Blood Count 3.07 M/mm3 (4.2-5.4); White Blood Count 8.9 K/mm3 (4.4-11.0)
--- NOTE | 2017-11-19 08:26 | CT_ITS ---
STUDY: CT UPPER EXTREMITY WITHOUT CONTRAST RIGHT REASON FOR EXAM: Female, 77 years old. Right humerus fracture RADIATION DOSAGE (If Supplied By Facility): CTDIvol = ( 24.58 ) mGy, DLP = ( 413.10 ) mGycm. Individualized dose optimization techniques were used for this CT.? TECHNIQUE: Duplex images of the right upper extremity were obtained from the superior aspect of the right clavicle to the mid right humerus. Sagittal coronal 3-D reformatted images are provided. COMPARISON: November 18, 2017 right shoulder x-ray FINDINGS: There is a comminuted impacted intra-articular fracture of the right humerus. The impacted shaft abuts the inferior edge of the glenoid rim on image #39 and coronal views. The axial views show a listed appearance of the inferior edge of the glenoid suggestive of probable labral injury. There is soft tissue edema surrounding the shoulder joint. There is a joint effusion. There is partial visualization of degenerative change in the cervical spine. There is medial displacement of the distal fragment. Humeral head appears to maintain its location in the glenohumeral joint. There is a buckled fracture fragment in the lesser and greater tuberosities. There is visualization of the right apex which shows a band of right upper lobe bronchiectasis and consolidation. This is similar to the prior study November 18, 2017 and worse since April 17, 2016 CT/Coronals Sag Multi Obl 3-D Rec IMPRESSION: Comminuted impacted fracture of the proximal right humerus is medial displacement of the distal fragment Probable inferior labral injury. Small subacromial fluid collection. Soft tissue swelling Incidental visualization of worse consolidation bronchiectasis in the right upper lobe which may represent atelectasis superimposed on pre-existing lung disease recommend follow-up CT scan of the chest when appropriate. Electronically Signed: Radha Desai MD at 9:18 EST Tel , Service support ,
--- NOTE | 2017-11-19 08:26 | PCM.CONS.B ---
- Consult Date of Consult: 11/19/17 - Reason for Consult 77-year-old female who sustained a fall from standing height resulting in a right closed fracture dislocation of the proximal humerus. The patient underwent a successful closed reduction by the emergency room staff last p.m. She was subsequent admitted to the floor and is currently resting comfortably in the bed. Patient's arm is currently in a sling. Patient denies any other associated contralateral upper extremity pain or lower extremity issues at this point time. Patient denies any significant fevers chills nausea vomiting chest pain or shortness of breath. She denies any numbness or tingling to the upper extremity. States her pain is currently well controlled. Objective: Patient is otherwise alert and oriented ?3 in no acute distress. Appropriate eye contact and affect. Remains intact from the C5-T2 distributions bilaterally. She has +2 pulses. She has no adenopathy. Removed out of the splint gently. Patient will gently flex and extend the elbow indicative of the muscle cutaneous nerve is maintained. Patient was able to pronate supinate the wrist without difficulty and has no elbow pain grossly. No obvious ecchymosis this point time and that will be pending. Patient's median radial nerves otherwise intact. Patient has good sensation over the axillary nerve with palpation. It was painful obviously to make an attempted abduction of the shoulder. X-rays: Right closed proximal humerus fracture dislocation-patient shows greater tuberosity fracture and it appears to be an impacted anatomic versus surgical neck. X-rays at this point time would appear to show the fracture to be reduced on the AP and scapular Y. CT scan pending. Assessment: Right closed proximal humerus fracture dislocation with with associated tuberosity fracture. Plan: At this point time the fracture appears to be well reduced. I will get a CT scan to confirm and also to evaluate the fracture pattern. If the patient is truly impacted we can allow this to heal by nonoperative solution. Patient operative indication will really be reliant upon the degree of displacement of the tuberosity. It is anywhere from 5 mm to 1 cm of displacement that is considered a fracture fragment requiring operative intervention per se. The patient's other big risk at this point time is recurrence of dislocation. The patient does have a recurrence and she would need a secondary closed reduction and probably open reduction internal fixation of the fracture and associated rotator cuff repair. If the patient were to show significant attenuation of the rotator cuff tissue and consideration for reverse total shoulder arthroplasty. The patient may flex and extend the elbow ad heather. Recommend limited internal/external rotation to allow on the fracture to heal and to to maintain reduction. The patient is at high risk for getting arthrofibrosis to the shoulder as with any shoulder injury pattern. However I do not feel the patient will require operative intervention at this point time of the shoulder is reduced. The patient can be discharged home based on CT confirming reduction and the patient can follow-up with me on an outpatient basis. Any major issues please contact me.
[2017-11-19 08:27] LABS: POSITIVE COUNT NO; POSITIVE DIFFERENTIAL NO; POSITIVE MORPHOLOGY NO
[2017-11-19 09:06] LABS: Anion Gap 8 (5-15); BUN 33 mg/dL (7-18); BUN/Creat Ratio 60.3 RATIO (10-20); CPK Total, Creatine Kinase 88 U/L (26-192); Calcium,Total 8.1 mg/dL (8.5-10.1); Chloride 119 mmol/L (98-107); Creatinine, Serum 0.55 mg/dL (0.55-1.02); EST Glomerular Filtration Rate 115 mL/min (>60); Est Glom Filt Rate - Afr Amer 139 mL/min (>60); Glucose 113 mg/dL (70-110); Potassium 3.1 mmol/L (3.5-5.1); Sodium Level 151 mmol/L (136-145)
[2017-11-19] MEDS: Nadolol 40 MG Tablet PO (10:00)
[2017-11-19] MEDS: Docusate Sodium 100 MG Capsule PO (10:00)
[2017-11-19] MEDS: Aspirin 81 MG TAB.CHEW PO (10:00)
[2017-11-19] MEDS: guaiFENesin 1,200 MG Tablet 1200 MG PO ×2 (10:01→20:46)
[2017-11-19] MEDS: Famotidine 20 MG Tablet PO ×2 (10:01→20:46)
[2017-11-19] MEDS: Losartan Potassium 25 MG Tablet PO (10:01)
[2017-11-19] MEDS: Pyridoxine HCl 100 MG Tablet PO ×2 (10:01)
[2017-11-19] MEDS: Enoxaparin 40 MG/0.4 ML Syringe SC (10:01)
[2017-11-19] MEDS: Ezetimibe 10 MG Tablet PO (10:02)
[2017-11-19] MEDS: Sertraline 100 MG Tablet PO (10:02)
--- NOTE | 2017-11-19 11:43 | PN_ITS ---
<Audrey Bolivar - Last Filed: 11/19/17 12:05> Patient Problems: Active and Suspected Problems Rhabdomyolysis (Acute) Right humeral fracture (Acute) Dislocation of right shoulder joint (Acute) Fall (Acute) Pneumonia (Acute) UTI (urinary tract infection) (Acute) Urinary retention (Acute) Subjective: Patient seen and examined. Resting in chair in no acute distress. Complains of right shoulder pain. Patient fell prior to admission and injured right shoulder. She states she has had falls at home and lives at home alone. She denies shortness of breath. States she has chronic cough, currently nonproductive. Denies fever, chills. Denies GI/ complaints. Denies other complaints. - Physical Exam General: Alert, Oriented x3, Cooperative, No apparent distress HEENT: Atraumatic, PERRLA, EOMI, Normocephalic Neck: Supple, No JVD, Negative Carotid Bruits Lungs: Clear to auscultation, Diminished Cardiovascular: Regular rate, Regular Rhythm, Normal S1, Normal S2, No murmurs Abdomen: Bowel Sounds Present, Soft, Non Tender, Non-Distended Extremities: No clubbing, No cyanosis, No edema, Capillary Refill Less than 3 Seconds Skin: No rashes, No breakdown Musculoskeletal: No Tenderness to Palpation of Joints or Extremities Neurological: Cranial nerves II-XII grossly intact, Neuro grossly intact Psych/Mental Status: Normal Affect, Appropriate Vital Signs Temp Pulse Resp BP Pulse Ox 98.2 F 67 18 133/50 H 94 11/19/17 05:18 11/19/17 06:36 11/19/17 06:36 11/19/17 05:18 11/19/17 05:18 Oxygen Delivery Method Room Air Weight: 50.3 kg Body Mass Index (BMI) 19.3 Intake and Output for Last 24 Hours 11/17/17 11/18/17 11/19/17 23:59 23:59 23:59 Intake Total 1736 / 1736 Output Total 200 / 200 Balance 1536 / 1536 Laboratory Tests Past 24 Hrs 11/19/17 11/19/17 11/19/17 08:00 08:00 08:00 WBC 8.9 RBC 3.07 L Hgb 9.3 L Hct 29.9 L MCV 97.4 MCH 30.3 MCHC 31.1 L RDW 14.4 RDW Differential 49.7 H Plt Count 273 MPV 10.4 Immature Gran % (Auto) 0.300 Neut % (Auto) 74.9 H Lymph % (Auto) 16.1 L [place] % (Auto) 7.5 Eos % (Auto) 1.1 Baso % (Auto) 0.1 Absolute Neuts (auto) 6.7 Absolute Lymphs (auto) 1.43 Total Counted Not Reportable Sodium 151 H Potassium 3.1 L Chloride 119 H Carbon Dioxide 24.0 Anion Gap 8 BUN 33 H Creatinine 0.55 Estim Creat Clear Calc 38.00 Est GFR (MDRD) Af Amer 139 Est GFR (MDRD) Non-Af 115 BUN/Creatinine Ratio 60.3 H Glucose 113 H Calcium 8.1 L Total Creatine Kinase 88 Cancelled Assessment/Plan Active and Suspected Problems Rhabdomyolysis (Acute) Right humeral fracture (Acute) Dislocation of right shoulder joint (Acute) Fall (Acute) Pneumonia (Acute) UTI (urinary tract infection) (Acute) Urinary retention (Acute) Patient is a 77-year-old female admitted 11/18/2017 due to fall with right shoulder/arm pain and cough. She has a past medical history of hypertension, hyperlipidemia, depression, history of frequent falls. 1. Status post mechanical fall-X-ray shows right closed fracture dislocation of the proximal humerus-patient underwent a successful close reduction in the emergency room. Patient was seen by laverne Muniz. She will keep her right arm in sling for the next 6-8 weeks. Patient will need follow-up with ortho at discharge for further evaluation to determine if further operative measures are desired/indicated. Continue Tylenol as needed for pain. She can have OxyIR as needed if Tylenol is not effective. 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 Possibly down for 4-5 days. Possible DC to SNF. PT/OT. 2. Mild rhabdomyolysis-secondary to #1. Resolved with IV fluids. 3. Suspected UTI-patient reported to have urinary retention in the emergency room and suspected UTI. Urinalysis unremarkable. Patient is asymptomatic. Do not feel patient has acute UTI. Urine culture pending. Continue Rocephin empirically pending urine culture. Gaines in place for urinary retention on admission. Patient will need voiding trial prior to discharge. 4. Possible community-acquired pneumonia-do not further suspect pneumonia. Chest x-ray emergency room showed a scarring in the right upper lobe, lungs otherwise clear. Patient is afebrile. White count normal. Denies productive cough. Blood cultures pending. Urine negative for strep and Legionella. Feel antibiotics can be discontinued pending cultures. 5. Hypokalemia-replace orally. Monitor BMP. 6. Hypernatremia-suspect secondary to hypovolemia/dehydration. Improving with IV fluids. Monitor BMP. 7. General debility-patient lives alone at home. Patient has history of frequent falls at home. History of fall with hip fracture. Patient may possibly need skilled placement if she is agreeable. Consult case management. 8. Hypertension-stable, continue home regimen. 9. Hyperlipidemia- continue home zetia. 10. Depression-continue home sertraline. 11. Moderate protein calorie malnutrition-consult nutrition/dietitian. 12. Normochromic normocytic anemia-hemoglobin 9.3, suspect drop is due to hemodilution. Monitor CBC. DVT prophylaxis-Lovenox subcu. This patient was seen by EMILIA Lopez under the supervision of Dr. Field. <Donovan Field - Last Filed: 11/19/17 16:08> Subjective: Seen and examined. Patient has bruise over right shoulder region. Patient also has chronic bilateral lower extremity weakness and history of recurrent fall. She had left hip arthroplasty in the past. She has been laying on the floor for 4 days. - Physical Exam Neck: Negative Carotid Bruits Lungs: Clear to auscultation, Diminished Cardiovascular: Regular rate, Regular Rhythm, Normal S1, Normal S2, No murmurs Musculoskeletal: Arthritic Changes, Muscle Wasting Neurological: Deep Tendon Reflexes 2+/4 and Symmetrical, - - Muscle power, 4/5 at major joints and lower extremities. Right upper extremity in sling. Vital Signs Temp Pulse Resp BP Pulse Ox 98.2 F 60 18 133/50 H 94 11/19/17 05:18 11/19/17 13:01 11/19/17 13:01 11/19/17 05:18 11/19/17 05:18 Oxygen Delivery Method Room Air Weight: 110 lb 14.28 oz Body Mass Index (BMI) 19.3 Intake and Output for Last 24 Hours 11/17/17 11/18/17 11/19/17 23:59 23:59 23:59 Intake Total 1736 / 1736 Output Total 200 / 200 Balance 1536 / 1536 Laboratory Tests Past 24 Hrs 11/19/17 11/19/17 11/19/17 08:00 08:00 08:00 WBC 8.9 RBC 3.07 L Hgb 9.3 L Hct 29.9 L MCV 97.4 MCH 30.3 MCHC 31.1 L RDW 14.4 RDW Differential 49.7 H Plt Count 273 MPV 10.4 Immature Gran % (Auto) 0.300 Neut % (Auto) 74.9 H Lymph % (Auto) 16.1 L [place] % (Auto) 7.5 Eos % (Auto) 1.1 Baso % (Auto) 0.1 Absolute Neuts (auto) 6.7 Absolute Lymphs (auto) 1.43 Total Counted Not Reportable Sodium 151 H Potassium 3.1 L Chloride 119 H Carbon Dioxide 24.0 Anion Gap 8 BUN 33 H Creatinine 0.55 Estim Creat Clear Calc 38.00 Est GFR (MDRD) Af Amer 139 Est GFR (MDRD) Non-Af 115 BUN/Creatinine Ratio 60.3 H Glucose 113 H Calcium 8.1 L Total Creatine Kinase 88 Cancelled Assessment/Plan This patient was seen in conjunction with Audrey VOGEL. I have independently interviewed and examined the patient and reviewed pertinent history, examination findings, laboratory and plan of management. I have reviewed the note and agree with the documented findings with the few additional points. In brief, patient is admitted for mechanical fall, with closed comminuted impacted fracture of proximal right humerus with mild rhabdomyolysis, has been on the floor for [address] of right upper extremity which showed Comminuted impacted fracture of the proximal right humerus with medial displacement of the distal fragment. Probable inferior labral injury. Small subacromial fluid collection. Dr. Bell suggested follow-up in the office. Continue PT and OT. I have discussed my assessment with Audrey VOGEL and orders have been reviewed. Clinical Impression(s) from Imaging Studies Pelvis X-Ray 11/18/17 17:47 IMPRESSION: No acute findings Electronically Signed: Gualberto Briseno DO at 19:08 EST Tel , Service support , Shoulder X-Ray 11/18/17 19:03 IMPRESSION: Anatomic reduction of the glenohumeral joint. Acute comminuted right humeral neck fracture with mild medial and anterior displacement. Mild degenerative change of the acromioclavicular joint. Old clavicle fracture. Infiltrate and volume loss in the right upper lobe as described on portable chest radiograph of the same day. Electronically Signed: Maura Shore MD at 21:33 EST , Service support , Upper Extremity CT 11/19/17 08:04 IMPRESSION: Comminuted impacted fracture of the proximal right humerus is medial displacement of the distal fragment Probable inferior labral injury. Small subacromial fluid collection. Soft tissue swelling Incidental visualization of worse consolidation bronchiectasis in the right upper lobe which may represent atelectasis superimposed on pre-existing lung disease recommend follow-up CT scan of the chest when appropriate. Code Visit Inpatient E&M: 62320 Subs Hosp L3
--- NOTE | 2017-11-19 13:14 | CASEMGMT ---
SOCIAL WORK: Met with patient, son and daughter, Mary Alice, in her room; introduced self and SW role at [facility]. Patient appeared to be in a lot of pain and assistant associate professor in room to help her back into bed. Son and daughter state that patient is not safe to live at home anymore and that they can not take care of her; they report concern regarding memory issues and issues with falls. Provided with listing of in-network SNF/ECFs for patient's [employer] insurance and reviewed options with daughter who stepped out into hallway. Advised that hospital based TCU is a short-term option and would not be appropriate if long-term care is needed post-SNF care. Encouraged for her to review listing with her brother and to come up with 3 choices to provide to primary social services analyst on Tuesday; name of SW provided to daughter. Discussed that a pre-cert will be needed prior to SNF admission and that [facility] does not pay for long-term care. Daughter voiced understanding of information provided. No further needs, questions or concerns voiced. SW did provide active listening and emotional support to daughter who became tearful regarding her Mom's condition and need for placement. PLAN: SNF listing provided to family for review. They are to provide primary SW with 3 choices on Tuesday so that referrals and pre-cert can be initiated. Dominique WHEATLEY,MONICA
[2017-11-20] VITALS (7 sets, daily range): BP systolic 106–117; BP diastolic 45–56; PULSE 62–80; RESP 16–19; TEMP 36.7–37.2; O2SAT 93–94
[2017-11-20] MEDS: 0.9% Normal Saline 1,000 ML 150 ML IV ×2 (01:57→08:46)
[2017-11-20] MEDS: Acetaminophen 325 MG Tablet 650 MG PO ×3 (04:15→21:18)
[2017-11-20 06:41] LABS: Hematocrit 26.3 % (37-47); Hemoglobin 8.2 g/dl (12.0-15.0); Mean Corp Hgb Conc 31.2 g/gl (32-36); Mean Corpuscular Hgb 30.4 pg (27.0-32.0); Mean Corpuscular Volume 97.4 fL (81-99); Mean Platelet Vol. 10.1 fl (6.2-12.0); Platelet Count 213 K/mm3 (150-450); RBC Distribution Width CV 14.8 % (11.6-14.6); RBC Distribution Width SD 51.3 fl (35.1-43.9)
[2017-11-20 06:45] LABS: Scan Indicated on CBC? Y/N NO
[2017-11-20] MEDS: Ipratropium/Albuterol Sulfate 3 ML AMPUL.NEB INHALATION ×3 (07:14→19:17)
[2017-11-20 07:40] LABS: Anion Gap 9 (5-15); BUN 18 mg/dL (7-18); Calcium,Total 7.6 mg/dL (8.5-10.1); Chloride 118 mmol/L (98-107); Creatinine, Serum 0.47 mg/dL (0.55-1.02); EST Glomerular Filtration Rate 136 mL/min (>60); Est Glom Filt Rate - Afr Amer 164 mL/min (>60); Glucose 120 mg/dL (70-110); Potassium 3.3 mmol/L (3.5-5.1); Sodium Level 149 mmol/L (136-145)
[2017-11-20] MEDS: Aspirin 81 MG TAB.CHEW PO (08:49)
[2017-11-20] MEDS: Ceftriaxone 1 GM/50 ML BAG IV (08:49)
--- NOTE | 2017-11-20 09:00 | PCM.PROGNOTE ---
<Audrey Bolivar - Last Filed: 11/20/17 09:17> Patient Problems: Active and Suspected Problems Rhabdomyolysis (Acute) Right humeral fracture (Acute) Dislocation of right shoulder joint (Acute) Fall (Acute) Pneumonia (Acute) UTI (urinary tract infection) (Acute) Urinary retention (Acute) Subjective: Patient seen and examined. Resting in bed comfortably. Nursing reports patient became mildly agitated overnight. She received Tylenol at that time and slept well throughout the night with no further agitation. [facility] facility discussed with patient and family yesterday by social work. All are in agreement for patient to be discharged to SNF. Patient complains of right eye irritation. She denies other complaints at this time. - Physical Exam General: Alert, Oriented x3, Cooperative, No apparent distress HEENT: Atraumatic, PERRLA, EOMI, Normocephalic Neck: Supple, No JVD, Negative Carotid Bruits Lungs: Clear to auscultation, Diminished Cardiovascular: Regular rate, Regular Rhythm, Normal S1, Normal S2, No murmurs Abdomen: Bowel Sounds Present, Soft, Non Tender, Non-Distended Extremities: No clubbing, No cyanosis, No edema, Capillary Refill Less than 3 Seconds Skin: No rashes, No breakdown, - - Right shoulder/arm ecchymosis. Musculoskeletal: Tenderness - Right shoulder Neurological: Cranial nerves II-XII grossly intact, Neuro grossly intact Psych/Mental Status: Normal Affect, Appropriate Vital Signs Temp Pulse Resp BP Pulse Ox 98.3 F 66 19 H 113/54 L 93 11/20/17 02:00 11/20/17 07:14 11/20/17 07:14 11/20/17 02:00 11/20/17 07:14 Oxygen Delivery Method Room Air Weight: 50.3 kg Body Mass Index (BMI) 19.3 Intake and Output for Last 24 Hours 11/18/17 11/19/17 11/20/17 23:59 23:59 23:59 Intake Total 4872 / 4872 879 / 879 Output Total 800 / 800 Balance 4072 / 4072 879 / 879 Laboratory Tests Past 24 Hrs 11/19/17 11/20/17 11/20/17 08:00 06:13 06:13 WBC 8.0 RBC 2.70 L Hgb 8.2 L Hct 26.3 L MCV 97.4 MCH 30.4 MCHC 31.2 L RDW 14.8 H RDW Differential 51.3 H Plt Count 213 MPV 10.1 Sodium 151 H 149 H Potassium 3.1 L 3.3 L Chloride 119 H 118 H Carbon Dioxide 24.0 22.0 Anion Gap 8 9 BUN 33 H 18 Creatinine 0.55 0.47 L Estim Creat Clear Calc 38.00 38.00 Est GFR (MDRD) Af Amer 139 164 Est GFR (MDRD) Non-Af 115 136 BUN/Creatinine Ratio 60.3 H 38.0 H Glucose 113 H 120 H Calcium 8.1 L 7.6 L Total Creatine Kinase 88 Assessment/Plan Active and Suspected Problems Rhabdomyolysis (Acute) Right humeral fracture (Acute) Dislocation of right shoulder joint (Acute) Fall (Acute) Pneumonia (Acute) UTI (urinary tract infection) (Acute) Urinary retention (Acute) Patient is a 77-year-old female admitted 11/18/2017 due to fall with right shoulder/arm pain and cough. She has a past medical history of hypertension, hyperlipidemia, depression, history of frequent falls. 1. Status post mechanical fall-X-ray shows right closed fracture dislocation of the proximal humerus-patient underwent a successful close reduction in the emergency room. Patient was seen by laverne Muniz. She will keep her right arm in sling for the next 6-8 weeks. Patient will need follow-up with ortho at discharge for further evaluation to determine if further operative measures are desired/indicated. Continue Tylenol as needed for pain. She can have OxyIR as needed if Tylenol is not effective. 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 Possibly down for 4-5 days. PT/OT. Patient and family have decided on SNF at discharge. 2. Mild rhabdomyolysis-secondary to #1. Resolved with IV fluids. 3. Suspected UTI-patient reported to have urinary retention in the emergency room and suspected UTI. Urinalysis unremarkable. Patient is asymptomatic. Do not feel patient has acute UTI. Urine culture pending. Continue Rocephin empirically pending urine culture. Gaines in place for urinary retention on admission. Patient will need voiding trial prior to discharge. 4. Possible community-acquired pneumonia-do not further suspect pneumonia. Chest x-ray emergency room showed a scarring in the right upper lobe, lungs otherwise clear. Patient is afebrile. White count normal. Denies productive cough. Blood cultures pending. Urine negative for strep and Legionella. Feel antibiotics can be discontinued pending cultures. 5. Hypokalemia-replace orally. Monitor BMP. 6. Hypernatremia-suspect secondary to hypovolemia/dehydration. Improved with IV fluids. Monitor BMP. 7. General debility-patient lives alone at home. Patient has history of frequent falls at home. History of fall with hip fracture. SNF at discharge. PT/OT. 8. Hypertension-stable, continue home regimen. 9. Hyperlipidemia- continue home zetia. 10. Depression-continue home sertraline. 11. Moderate protein calorie malnutrition-consult nutrition/dietitian. 12. Normochromic normocytic anemia-hemoglobin 9.3, suspect drop is due to hemodilution. Monitor CBC. DVT prophylaxis-Lovenox subcu. Discharge planning: Patient and family have agreed to [facility] facility at discharge. Family discussing facility options. Social work involved. Plan to start pre-cert tomorrow. This patient was seen by EMILIA Lopez under the supervision of Dr. Field. <Donovan Field - Last Filed: 11/20/17 14:24> Subjective: Patient had family members in her room. She still has right shoulder region severe pain. She has bilateral lower extremity hip and knee joint pain, stiffness and weakness due to deconditioning and disease. - Physical Exam General: Alert, Oriented x3, Cooperative HEENT: Atraumatic, PERRLA, EOMI, Normocephalic Neck: Supple, No JVD, Negative Carotid Bruits Lungs: Clear to auscultation Cardiovascular: Regular rate, Regular Rhythm, Normal S2, No murmurs Abdomen: Bowel Sounds Present, Soft, Non Tender Extremities: No edema, Capillary Refill Less than 3 Seconds Skin: No rashes, No breakdown Musculoskeletal: Arthritic Changes, Muscle Wasting, Tenderness Neurological: Cranial nerves II-XII grossly intact Psych/Mental Status: Normal Affect, Appropriate Vital Signs Temp Pulse Resp BP Pulse Ox 98.2 F 68 19 H 106/45 L 93 11/20/17 08:00 11/20/17 13:30 11/20/17 13:30 11/20/17 08:00 11/20/17 08:00 Oxygen Delivery Method Room Air Weight: 110 lb 14.28 oz Body Mass Index (BMI) 19.3 Intake and Output for Last 24 Hours 11/18/17 11/19/17 11/20/17 23:59 23:59 23:59 Intake Total 4872 / 4872 879 / 879 Output Total 800 / 800 Balance 4072 / 4072 879 / 879 Laboratory Tests Past 24 Hrs 11/20/17 11/20/17 06:13 06:13 WBC 8.0 RBC 2.70 L Hgb 8.2 L Hct 26.3 L MCV 97.4 MCH 30.4 MCHC 31.2 L RDW 14.8 H RDW Differential 51.3 H Plt Count 213 MPV 10.1 Sodium 149 H Potassium 3.3 L Chloride 118 H Carbon Dioxide 22.0 Anion Gap 9 BUN 18 Creatinine 0.47 L Estim Creat Clear Calc 38.00 Est GFR (MDRD) Af Amer 164 Est GFR (MDRD) Non-Af 136 BUN/Creatinine Ratio 38.0 H Glucose 120 H Calcium 7.6 L Assessment/Plan This patient was seen in conjunction with Audrey VOGEL. I have independently interviewed and examined the patient and reviewed pertinent history, examination findings, laboratory and plan of management. I have reviewed the note and agree with the documented findings with the few additional points. In brief, patient is admitted for mechanical fall, with closed comminuted impacted fracture of proximal right humerus with mild rhabdomyolysis, has been on the floor for [address] of right upper extremity which showed Comminuted impacted fracture of the proximal right humerus with medial displacement of the distal fragment. Probable inferior labral injury. Small subacromial fluid collection. CK has improved and now normal. Mild hypokalemia. Dr. Bell suggested follow-up in the office. Continue PT and OT. I do not think patient has pneumonia. Repeat chest x-ray PA and lateral and if no change or improvement in previous x-ray can discontinue antibiotics I have discussed my assessment with Audrey VOGEL and orders have been reviewed. Microbiology Past 72 Hours 11/18/17 18:00 Urine Catheter - Gaines Urine Culture - Preliminary Culture exhibits no growth. 11/18/17 18:00 Urine Catheter - Gaines Streptococcus pneumoniae Antigen (M - Final 11/18/17 18:00 Urine Catheter - Gaines Legionella Antigen - Final Laboratory Results 11/20/17 06:13: WBC 8.0, RBC 2.70 L, Hgb 8.2 L, Hct 26.3 L, MCV 97.4, MCH 30.4, MCHC 31.2 L, RDW 14.8 H, RDW Differential 51.3 H, Plt Count 213, MPV 10.1 11/20/17 06:13: Sodium 149 H, Potassium 3.3 L, Chloride 118 H, Carbon Dioxide 22.0, Anion Gap 9, BUN 18, Creatinine 0.47 L, Estim Creat Clear Calc 38.00, Est GFR (MDRD) Af Amer 164, Est GFR (MDRD) Non-Af 136, BUN/Creatinine Ratio 38.0 H, Glucose 120 H, Calcium 7.6 L Clinical Impression(s) from Imaging Studies Brain CT 11/18/17 17:46 IMPRESSION: 1. No acute intracranial pathology. 2. Left maxillary sinus and ethmoid paranasal sinus disease Electronically Signed: Gualberto Briseno DO at 21:11 EST Tel , Service support , Chest X-Ray 11/18/17 17:46 IMPRESSION: Dislocation of the right shoulder. Scarring in the right upper lobe appears worsening. Lungs are otherwise clear. Electronically Signed: Gualberto Briseno DO at 19:07 EST Tel , Service support , Pelvis X-Ray 11/18/17 17:47 IMPRESSION: No acute findings Electronically Signed: Gualberto Briseno DO at 19:08 EST Tel , Service support , Shoulder X-Ray 11/18/17 17:47 IMPRESSION: As above Electronically Signed: Gualberto Briseno DO at 19:59 EST Tel , Service support , Shoulder X-Ray 11/18/17 19:03 IMPRESSION: Anatomic reduction of the glenohumeral joint. Acute comminuted right humeral neck fracture with mild medial and anterior displacement. Mild degenerative change of the acromioclavicular joint. Old clavicle fracture. Infiltrate and volume loss in the right upper lobe as described on portable chest radiograph of the same day. Electronically Signed: Maura Shore MD at 21:33 EST , Service support , Upper Extremity CT 11/19/17 08:04 IMPRESSION: Comminuted impacted fracture of the proximal right humerus is medial displacement of the distal fragment Probable inferior labral injury. Small subacromial fluid collection. Soft tissue swelling Incidental visualization of worse consolidation bronchiectasis in the right upper lobe which may represent atelectasis superimposed on pre-existing lung disease recommend follow-up CT scan of the chest when appropriate. Electronically Signed: Radha Desai MD at 9:18 EST Tel , Service support , 3D Reconstruction 11/19/17 08:26 IMPRESSION: Comminuted impacted fracture of the proximal right humerus is medial displacement of the distal fragment Probable inferior labral injury. Small subacromial fluid collection. Soft tissue swelling Incidental visualization of worse consolidation bronchiectasis in the right upper lobe which may represent atelectasis superimposed on pre-existing lung disease recommend follow-up CT scan of the chest when appropriate. Electronically Signed: Radha Desai MD at 9:18 EST Tel , Service support , Code Visit Inpatient E&M: 33640 Subs Hosp L3
--- NOTE | 2017-11-20 09:11 | PN_ITS ---
<Audrey Bolivar - Last Filed: 11/20/17 09:17> Patient Problems: Active and Suspected Problems Rhabdomyolysis (Acute) Right humeral fracture (Acute) Dislocation of right shoulder joint (Acute) Fall (Acute) Pneumonia (Acute) UTI (urinary tract infection) (Acute) Urinary retention (Acute) Subjective: Patient seen and examined. Resting in bed comfortably. Nursing reports patient became mildly agitated overnight. She received Tylenol at that time and slept well throughout the night with no further agitation. detention facility discussed with patient and family yesterday by social work. All are in agreement for patient to be discharged to SNF. Patient complains of right eye irritation. She denies other complaints at this time. - Physical Exam General: Alert, Oriented x3, Cooperative, No apparent distress HEENT: Atraumatic, PERRLA, EOMI, Normocephalic Neck: Supple, No JVD, Negative Carotid Bruits Lungs: Clear to auscultation, Diminished Cardiovascular: Regular rate, Regular Rhythm, Normal S1, Normal S2, No murmurs Abdomen: Bowel Sounds Present, Soft, Non Tender, Non-Distended Extremities: No clubbing, No cyanosis, No edema, Capillary Refill Less than 3 Seconds Skin: No rashes, No breakdown, - - Right shoulder/arm ecchymosis. Musculoskeletal: Tenderness - Right shoulder Neurological: Cranial nerves II-XII grossly intact, Neuro grossly intact Psych/Mental Status: Normal Affect, Appropriate Vital Signs Temp Pulse Resp BP Pulse Ox 98.3 F 66 19 H 113/54 L 93 11/20/17 02:00 11/20/17 07:14 11/20/17 07:14 11/20/17 02:00 11/20/17 07:14 Oxygen Delivery Method Room Air Weight: 50.3 kg Body Mass Index (BMI) 19.3 Intake and Output for Last 24 Hours 11/18/17 11/19/17 11/20/17 23:59 23:59 23:59 Intake Total 4872 / 4872 879 / 879 Output Total 800 / 800 Balance 4072 / 4072 879 / 879 Laboratory Tests Past 24 Hrs 11/19/17 11/20/17 11/20/17 08:00 06:13 06:13 WBC 8.0 RBC 2.70 L Hgb 8.2 L Hct 26.3 L MCV 97.4 MCH 30.4 MCHC 31.2 L RDW 14.8 H RDW Differential 51.3 H Plt Count 213 MPV 10.1 Sodium 151 H 149 H Potassium 3.1 L 3.3 L Chloride 119 H 118 H Carbon Dioxide 24.0 22.0 Anion Gap 8 9 BUN 33 H 18 Creatinine 0.55 0.47 L Estim Creat Clear Calc 38.00 38.00 Est GFR (MDRD) Af Amer 139 164 Est GFR (MDRD) Non-Af 115 136 BUN/Creatinine Ratio 60.3 H 38.0 H Glucose 113 H 120 H Calcium 8.1 L 7.6 L Total Creatine Kinase 88 Assessment/Plan Active and Suspected Problems Rhabdomyolysis (Acute) Right humeral fracture (Acute) Dislocation of right shoulder joint (Acute) Fall (Acute) Pneumonia (Acute) UTI (urinary tract infection) (Acute) Urinary retention (Acute) Patient is a 77-year-old female admitted 11/18/2017 due to fall with right shoulder/arm pain and cough. She has a past medical history of hypertension, hyperlipidemia, depression, history of frequent falls. 1. Status post mechanical fall-X-ray shows right closed fracture dislocation of the proximal humerus-patient underwent a successful close reduction in the emergency room. Patient was seen by laverne Muniz. She will keep her right arm in sling for the next 6-8 weeks. Patient will need follow-up with ortho at discharge for further evaluation to determine if further operative measures are desired/indicated. Continue Tylenol as needed for pain. She can have OxyIR as needed if Tylenol is not effective. 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 Possibly down for 4-5 days. PT/OT. Patient and family have decided on SNF at discharge. 2. Mild rhabdomyolysis-secondary to #1. Resolved with IV fluids. 3. Suspected UTI-patient reported to have urinary retention in the emergency room and suspected UTI. Urinalysis unremarkable. Patient is asymptomatic. Do not feel patient has acute UTI. Urine culture pending. Continue Rocephin empirically pending urine culture. Gaines in place for urinary retention on admission. Patient will need voiding trial prior to discharge. 4. Possible community-acquired pneumonia-do not further suspect pneumonia. Chest x-ray emergency room showed a scarring in the right upper lobe, lungs otherwise clear. Patient is afebrile. White count normal. Denies productive cough. Blood cultures pending. Urine negative for strep and Legionella. Feel antibiotics can be discontinued pending cultures. 5. Hypokalemia-replace orally. Monitor BMP. 6. Hypernatremia-suspect secondary to hypovolemia/dehydration. Improved with IV fluids. Monitor BMP. 7. General debility-patient lives alone at home. Patient has history of frequent falls at home. History of fall with hip fracture. SNF at discharge. PT /OT. 8. Hypertension-stable, continue home regimen. 9. Hyperlipidemia- continue home zetia. 10. Depression-continue home sertraline. 11. Moderate protein calorie malnutrition-consult nutrition/dietitian. 12. Normochromic normocytic anemia-hemoglobin 9.3, suspect drop is due to hemodilution. Monitor CBC. DVT prophylaxis-Lovenox subcu. Discharge planning: Patient and family have agreed to longterm facility at discharge. Family discussing facility options. Social work involved. Plan to start pre-cert tomorrow. This patient was seen by EMILIA Lopez under the supervision of Dr. Field. <Donovan Field - Last Filed: 11/20/17 14:24> Subjective: Patient had family members in her room. She still has right shoulder region severe pain. She has bilateral lower extremity hip and knee joint pain, stiffness and weakness due to deconditioning and disease. - Physical Exam General: Alert, Oriented x3, Cooperative HEENT: Atraumatic, PERRLA, EOMI, Normocephalic Neck: Supple, No JVD, Negative Carotid Bruits Lungs: Clear to auscultation Cardiovascular: Regular rate, Regular Rhythm, Normal S2, No murmurs Abdomen: Bowel Sounds Present, Soft, Non Tender Extremities: No edema, Capillary Refill Less than 3 Seconds Skin: No rashes, No breakdown Musculoskeletal: Arthritic Changes, Muscle Wasting, Tenderness Neurological: Cranial nerves II-XII grossly intact Psych/Mental Status: Normal Affect, Appropriate Vital Signs Temp Pulse Resp BP Pulse Ox 98.2 F 68 19 H 106/45 L 93 11/20/17 08:00 11/20/17 13:30 11/20/17 13:30 11/20/17 08:00 11/20/17 08:00 Oxygen Delivery Method Room Air Weight: 110 lb 14.28 oz Body Mass Index (BMI) 19.3 Intake and Output for Last 24 Hours 11/18/17 11/19/17 11/20/17 23:59 23:59 23:59 Intake Total 4872 / 4872 879 / 879 Output Total 800 / 800 Balance 4072 / 4072 879 / 879 Laboratory Tests Past 24 Hrs 11/20/17 11/20/17 06:13 06:13 WBC 8.0 RBC 2.70 L Hgb 8.2 L Hct 26.3 L MCV 97.4 MCH 30.4 MCHC 31.2 L RDW 14.8 H RDW Differential 51.3 H Plt Count 213 MPV 10.1 Sodium 149 H Potassium 3.3 L Chloride 118 H Carbon Dioxide 22.0 Anion Gap 9 BUN 18 Creatinine 0.47 L Estim Creat Clear Calc 38.00 Est GFR (MDRD) Af Amer 164 Est GFR (MDRD) Non-Af 136 BUN/Creatinine Ratio 38.0 H Glucose 120 H Calcium 7.6 L Assessment/Plan This patient was seen in conjunction with Audrey VOGEL. I have independently interviewed and examined the patient and reviewed pertinent history, examination findings, laboratory and plan of management. I have reviewed the note and agree with the documented findings with the few additional points. In brief, patient is admitted for mechanical fall, with closed comminuted impacted fracture of proximal right humerus with mild rhabdomyolysis, has been on the floor for [address] of right upper extremity which showed Comminuted impacted fracture of the proximal right humerus with medial displacement of the distal fragment. Probable inferior labral injury. Small subacromial fluid collection. CK has improved and now normal. Mild hypokalemia. Dr. Bell suggested follow-up in the office. Continue PT and OT. I do not think patient has pneumonia. Repeat chest x-ray PA and lateral and if no change or improvement in previous x-ray can discontinue antibiotics I have discussed my assessment with Audrey VOGEL and orders have been reviewed. Microbiology Past 72 Hours 11/18/17 18:00 Urine Catheter - Gaines Urine Culture - Preliminary Culture exhibits no growth. 11/18/17 18:00 Urine Catheter - Gaines Streptococcus pneumoniae Antigen (M - Final 11/18/17 18:00 Urine Catheter - Gaines Legionella Antigen - Final Laboratory Results 11/20/17 06:13: WBC 8.0, RBC 2.70 L, Hgb 8.2 L, Hct 26.3 L, MCV 97.4, MCH 30.4, MCHC 31.2 L, RDW 14.8 H, RDW Differential 51.3 H, Plt Count 213, MPV 10.1 11/20/17 06:13: Sodium 149 H, Potassium 3.3 L, Chloride 118 H, Carbon Dioxide 22.0, Anion Gap 9, BUN 18, Creatinine 0.47 L, Estim Creat Clear Calc 38.00, Est GFR (MDRD) Af Amer 164, Est GFR (MDRD) Non-Af 136, BUN/Creatinine Ratio 38.0 H, Glucose 120 H, Calcium 7.6 L Clinical Impression(s) from Imaging Studies Brain CT 11/18/17 17:46 IMPRESSION: 1. No acute intracranial pathology. 2. Left maxillary sinus and ethmoid paranasal sinus disease Electronically Signed: Gualberto Briseno DO at 21:11 EST Tel , Service support , Chest X-Ray 11/18/17 17:46 IMPRESSION: Dislocation of the right shoulder. Scarring in the right upper lobe appears worsening. Lungs are otherwise clear. Electronically Signed: Gualberto Briseno DO at 19:07 EST Tel , Service support , Pelvis X-Ray 11/18/17 17:47 IMPRESSION: No acute findings Electronically Signed: Gualberto Briseno DO at 19:08 EST Tel , Service support , Shoulder X-Ray 11/18/17 17:47 IMPRESSION: As above Electronically Signed: Gualberto Briseno DO at 19:59 EST Tel , Service support , Shoulder X-Ray 11/18/17 19:03 IMPRESSION: Anatomic reduction of the glenohumeral joint. Acute comminuted right humeral neck fracture with mild medial and anterior displacement. Mild degenerative change of the acromioclavicular joint. Old clavicle fracture. Infiltrate and volume loss in the right upper lobe as described on portable chest radiograph of the same day. Electronically Signed: Maura Shore MD at 21:33 EST , Service support , Upper Extremity CT 11/19/17 08:04 IMPRESSION: Comminuted impacted fracture of the proximal right humerus is medial displacement of the distal fragment Probable inferior labral injury. Small subacromial fluid collection. Soft tissue swelling Incidental visualization of worse consolidation bronchiectasis in the right upper lobe which may represent atelectasis superimposed on pre-existing lung disease recommend follow-up CT scan of the chest when appropriate. Electronically Signed: Radha Desai MD at 9:18 EST Tel , Service support , 3D Reconstruction 11/19/17 08:26 IMPRESSION: Comminuted impacted fracture of the proximal right humerus is medial displacement of the distal fragment Probable inferior labral injury. Small subacromial fluid collection. Soft tissue swelling Incidental visualization of worse consolidation bronchiectasis in the right upper lobe which may represent atelectasis superimposed on pre-existing lung disease recommend follow-up CT scan of the chest when appropriate. Electronically Signed: Radha Desai MD at 9:18 EST Tel , Service support , Code Visit Inpatient E&M: 26710 Subs Hosp L3
[2017-11-20] MEDS: Enoxaparin 40 MG/0.4 ML Syringe SC (10:53)
[2017-11-20] MEDS: Nadolol 40 MG Tablet PO (10:53)
[2017-11-20] MEDS: Ezetimibe 10 MG Tablet PO (10:53)
[2017-11-20] MEDS: Sertraline 100 MG Tablet PO (10:53)
[2017-11-20] MEDS: Famotidine 20 MG Tablet PO ×2 (10:53→21:18)
[2017-11-20] MEDS: Losartan Potassium 25 MG Tablet PO (10:53)
[2017-11-20] MEDS: Docusate Sodium 100 MG Capsule PO (10:53)
[2017-11-20] MEDS: guaiFENesin 1,200 MG Tablet 1200 MG PO ×2 (10:54→21:18)
[2017-11-20] MEDS: Gentamicin Sulfate 1 OPTH.BTL 2 DRP RIGHT EYE ×4 (11:39→21:18)
--- NOTE | 2017-11-20 16:30 | NURSING ---
CLARIFIED WITH DR TAI REGARDING DUPLICATE ORDER FOR POTASSIUM 40 MEQ-- HE DOES WANT PT TO HAVE ANOTHER 40 MEQ FOR A TOTAL OF 80 MEQ TODAY.
[2017-11-21 02:55] VITALS: BP 122/47; PULSE 66; RESP 16; TEMP 36.7; O2SAT 94
[2017-11-21] MEDS: Gentamicin Sulfate 1 OPTH.BTL 2 DRP RIGHT EYE ×4 (02:56→13:48)
--- NOTE | 2017-11-21 05:55 | RAD_ITS ---
STUDY: X-RAY CHEST REASON FOR EXAM: Female, 77 years old. Cough. TECHNIQUE: Single AP portable view of the chest. COMPARISON: Comparison is made with prior study dated November 18, 2017. FINDINGS: Persistent volume loss with infiltration in the right upper lobe. Thickening of the right minor fissure. This is unchanged. Mild increased markings at the lung bases slightly worse on the left side suggestive of atelectasis. This has progressed as compared to prior study. There is no demonstrated pleural abnormality. Normal size heart. Normal mediastinum and abundio. Normal visualized pulmonary arteries. There is atherosclerotic calcification of the aortic arch with tortuosity. There are diffuse degenerative changes of the visualized thoracic spine. Healed proximal right humeral fracture with deformity. There is no demonstrated abnormality of the visualized soft tissue structures of the upper abdomen. RAD/Chest 1 View (Portable) IMPRESSION: Stable right upper lobe volume loss with infiltration and thickening of the minor fissure. Atelectasis at both lung bases. Electronically Signed: Shelton Haynes MD at 11:46 EST Tel [phone], Service support ,
[2017-11-21 06:31] LABS: Hematocrit 28.2 % (37-47); Hemoglobin 8.8 g/dl (12.0-15.0); Mean Corp Hgb Conc 31.2 g/gl (32-36); Mean Corpuscular Volume 99.3 fL (81-99); Mean Platelet Vol. 10.7 fl (6.2-12.0); Platelet Count 230 K/mm3 (150-450); RBC Distribution Width CV 14.6 % (11.6-14.6); RBC Distribution Width SD 48.4 fl (35.1-43.9); Red Blood Count 2.84 M/mm3 (4.2-5.4); White Blood Count 7.3 K/mm3 (4.4-11.0)
[2017-11-21] MEDS: Acetaminophen 325 MG Tablet 650 MG PO ×2 (06:36→13:48)
[2017-11-21 06:49] LABS: Scan Indicated on CBC? Y/N NO
[2017-11-21 06:50] LABS: Anion Gap 6 (5-15); BUN 13 mg/dL (7-18); BUN/Creat Ratio 27.6 RATIO (10-20); Calcium,Total 8.1 mg/dL (8.5-10.1); Chloride 112 mmol/L (98-107); Creatinine, Serum 0.47 mg/dL (0.55-1.02); EST Glomerular Filtration Rate 137 mL/min (>60); Est Glom Filt Rate - Afr Amer 165 mL/min (>60); Glucose 106 mg/dL (70-110); Potassium 4.1 mmol/L (3.5-5.1); Sodium Level 145 mmol/L (136-145)
[2017-11-21 07:36] VITALS: PULSE 63; RESP 16; O2SAT 94
[2017-11-21] MEDS: Ipratropium/Albuterol Sulfate 3 ML AMPUL.NEB INHALATION ×2 (07:36→13:30)
[2017-11-21 08:57] VITALS: BP 127/67; PULSE 64; RESP 18; TEMP 37.1; O2SAT 96
--- NOTE | 2017-11-21 09:04 | CASEMGMT ---
Social Work Note In to pt's room to discuss discharge planning and pt's is sound asleep. Placed call to the pt's daughter, Mary Alice, and she confirms that they would like referrals made to these facilities in this order: 1) [facility], 2) [facility], 3) [facility]. Mary Alice also states that her mother has paid for skilled nursing care insurance for years through [employer] and her agent is Lorna Alcon. Inquire if she has a card that could send with a referral to SNFs and she states its at her mothers house and she could get it to by Tuesday. Inform that SW would not need it, but the facility she is accepted at february. Understanding expressed. Initial referral faxed to [facility]. Mary Alice states she will be home after 11 am this morning if any updates are needed. Plan: SNF pending acceptance and pre-cert. LD ShankarW
[2017-11-21] MEDS: Enoxaparin 40 MG/0.4 ML Syringe SC (09:05)
[2017-11-21] MEDS: Famotidine 20 MG Tablet PO (09:06)
[2017-11-21] MEDS: Pyridoxine HCl 100 MG Tablet PO (09:06)
[2017-11-21] MEDS: Losartan Potassium 25 MG Tablet PO (09:06)
[2017-11-21] MEDS: Ezetimibe 10 MG Tablet PO (09:06)
[2017-11-21] MEDS: Nadolol 40 MG Tablet PO (09:06)
[2017-11-21] MEDS: Sertraline 100 MG Tablet PO (09:06)
[2017-11-21] MEDS: Aspirin 81 MG TAB.CHEW PO (09:06)
--- NOTE | 2017-11-21 09:19 | CASEMGMT ---
Social Work Note Placed call to [facility] who states that they do not have bed availability for long-term care. [facility] and updated regarding incoming referral. Will await return phone call with their determination. Audrey Palumbo MSW MEDICAL STAFFING COORDINATOR
[2017-11-21] MEDS: guaiFENesin 1,200 MG Tablet 1200 MG PO (09:54)
--- NOTE | 2017-11-21 09:58 | CASEMGMT ---
Social Work Note Call from Tiffanie at [facility] stating that they can accept. Inform that SW will submit clinicals to insurance to review. Once obtained will discharge this date. Faxed clinicals to [facility] at [facility] and will await authorization. Placed call to the pt's daughter, Mary Alice, to update that [facility] could not accept, and [facility] can. Informed that pre-cert was initiated and SW anticipates receiving authorization this date and that pt will discharge. SW to setup transportation and notify Mary Alice. Updated Darius Bolivar NP. SW to continue to follow and assist with discharge planning. Plan: [facility] pending pre-cert. LD Shankar BANKING SUPERVISOR
--- NOTE | 2017-11-21 10:33 | TREXTCA.CO_ITS ---
- Diet 11/18/17 22:43 Diet: Regular Diet Food consistency:: Regular Liquid Consistency:: Regular/Thin Is pt able to select menu?: Yes - Routine Orders/Code Status Enema Type: Fleetz Enema Frequency: Daily PRN Suppository Type: Dulcolax 10mg Suppository Frequency: Daily PRN O2 Liters per Minute: 2 O2 Frequency: PRN Keep PO Greater than or Equal to (%): 90 Routine Lab Work: CBC, BMP, - - Q Week Code Status: DNC-A - Therapies Physical Therapy: Eval and Treat Occupational Therapy: Eval and Treat - Allergies/Procedures Done in Hospital Allergies/Adverse Reactions: Allergies atorvastatin calcium [From Lipitor] Allergy (Verified 11/18/17 23:48) Nausea niacin [From Niaspan Extended-Release] Allergy (Verified 11/18/17 18:29) Shortness of breath venom-honey bee [bee venom (honey bee)] Allergy (Verified 11/18/17 18:29) Anaphylaxis Procedures: None - Type of Care/Length of Stay Estimated LOS: More Than 30 Days Type of Care Needed: Skilled Rehab Potential: Fair Prognosis: Fair - Additional Orders/Day of Discharge H&P will serve as current which was dated: 11/18/17 Day of Discharge: 11/21/17 - Dietary and Speech Recommendations Dietitian Recommendations/Changes: Continue regular diet as tolerated with ensure enlive on medpass. 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 Weigh QOD. - Follow Up Care Primary Care Physician: Marilee Shah MD [Primary Care Provider] - Please follow up with your Primary Care Physician in: 1-2 Weeks Please Follow Up With: Jet Bell DO When: 6-8 Weeks
--- NOTE | 2017-11-21 10:34 | PCM.DC.SUM ---
Discharge Date and Diagnosis Date of Admission: 11/18/17 Date of Discharge: 11/21/17 - Primary Discharge Diagnosis Active and Suspected Problems 1. Status post mechanical fall with associated acute right closed fracture dislocation of the proximal humerus 2. Mild rhabdomyolysis-resolved. 3. Suspected UTI-ruled out. 4. Suspected community-acquired pneumonia-ruled out. 5. Moderate protein calorie malnutrition 6. Hypernatremia-resolved. 7. Hypokalemia-resolved. - Secondary Discharge Diagnosis Chronic Problems Hyperlipidemia (Chronic) Hypertension (Chronic) Depression (Chronic) Osteoarthritis of left hip (Chronic) Gait instability (Chronic) Chronic normochromic normocytic anemia Hospital Course and Treatment Imaging Results: Diagnostic Data Brain CT 11/18/17 17:46 IMPRESSION: 1. No acute intracranial pathology. 2. Left maxillary sinus and ethmoid paranasal sinus disease Electronically Signed: Gualberto Briseno DO at 21:11 EST Tel , Service support , Pelvis X-Ray 11/18/17 17:47 IMPRESSION: No acute findings Electronically Signed: Gualberto Briseno DO at 19:08 EST Tel , Service support , Shoulder X-Ray 11/18/17 19:03 IMPRESSION: Anatomic reduction of the glenohumeral joint. Acute comminuted right humeral neck fracture with mild medial and anterior displacement. Mild degenerative change of the acromioclavicular joint. Old clavicle fracture. Infiltrate and volume loss in the right upper lobe as described on portable chest radiograph of the same day. Electronically Signed: Maura Shore MD at 21:33 EST , Service support , Upper Extremity CT 11/19/17 08:04 IMPRESSION: Comminuted impacted fracture of the proximal right humerus is medial displacement of the distal fragment Probable inferior labral injury. Small subacromial fluid collection. Soft tissue swelling Incidental visualization of worse consolidation bronchiectasis in the right upper lobe which may represent atelectasis superimposed on pre-existing lung disease recommend follow-up CT scan of the chest when appropriate. Electronically Signed: Radha Desai MD at 9:18 EST Tel , Service support , 3D Reconstruction 11/19/17 08:26 IMPRESSION: Comminuted impacted fracture of the proximal right humerus is medial displacement of the distal fragment Probable inferior labral injury. Small subacromial fluid collection. Soft tissue swelling Incidental visualization of worse consolidation bronchiectasis in the right upper lobe which may represent atelectasis superimposed on pre-existing lung disease recommend follow-up CT scan of the chest when appropriate. Electronically Signed: Radha Desai MD at 9:18 EST Tel , Service support , Dr. Bell-orthopedic surgery Operations: None Procedures: None Summary of Care Provided: Patient is a 77-year-old female admitted 11/18/2017 due to fall with right shoulder/arm pain and cough. She has a past medical history of hypertension, hyperlipidemia, depression, history of frequent falls. 1. Status post mechanical fall-X-ray shows right closed fracture dislocation of the proximal humerus-patient underwent a successful close reduction in the emergency room. Patient was seen by Dr. Bell, orthopedic surgery. She will keep her right arm in sling for the next 6-8 weeks. Patient will need follow-up with ortho at discharge in 6-8 weeks for further evaluation to determine if further operative measures are desired/indicated. Continue Tylenol as needed for pain. She has not needed stronger pain during admission to maintain comfort. Continue PT/OT at facility. Patient may flex and extend the right elbow gently. However, she will need to limit internal and external rotation. 2. Mild rhabdomyolysis-secondary to #1. Resolved with IV fluids. 3. Suspected UTI-ruled out. Patient reported to have urinary retention in the emergency room and suspected UTI. Urinalysis unremarkable. Patient is asymptomatic. Urine culture shows no growth. Gaines will need discontinued prior to discharge, and will need voiding trial prior to discharge. 4. Suspected community-acquired pneumonia-ruled out, do not further suspect pneumonia. Chest x-ray emergency room showed a scarring in the right upper lobe, lungs otherwise clear. Patient is afebrile. White count normal. Denies productive cough. Blood cultures show no growth. Urine negative for strep and Legionella. Patient did receive antibiotics which were discontinued. 5. Hypokalemia-replaced orally, resolved. Monitor BMP q week. 6. Hypernatremia-suspect secondary to hypovolemia/dehydration. Resolved IV fluids. 7. General debility-patient previously from home, alone. Patient has had history of frequent falls at home. History of fall with hip fracture. SNF at discharge. PT/OT. 8. Hypertension-stable, continue home regimen. 9. Hyperlipidemia- continue home zetia. 10. Depression-continue home sertraline. 11. Moderate protein calorie malnutrition-nutrition/dietitian consulted. Recommend further ensure supplementation at discharge. 12. Normochromic normocytic anemia-stable. General: Alert, Oriented x3, Cooperative, No apparent distress HEENT: Atraumatic, PERRLA, EOMI, Normocephalic Neck: Supple, No JVD, Negative Carotid Bruits Lungs: Clear to auscultation, Diminished Cardiovascular: Regular rate, Regular Rhythm, Normal S1, Normal S2, No murmurs Abdomen: Bowel Sounds Present, Soft, Non Tender, Non-Distended Extremities: No clubbing, No cyanosis, No edema, Capillary Refill Less than 3 Seconds Skin: No rashes, No breakdown, - - Right shoulder/arm ecchymosis. Musculoskeletal: Tenderness - Right shoulder Neurological: Cranial nerves II-XII grossly intact, Neuro grossly intact Psych/Mental Status: Normal Affect, Appropriate Patient seen and examined prior to discharge. Physical assessment as noted above. Patient is stable for discharge to nursing home facility with further follow-up by primary care physician and orthopedic surgery. This patient was seen by EMILIA Lopez under the supervision of Dr. Taylor. Home Medications: Medications to take at Discharge Aspirin [Aspirin, Baby] 81 mg PO QHS 04/17/16 Cyanocobalamin [Vitamin B12] 1,000 mcg PO DAILY@0800 04/17/16 Ezetimibe [Zetia] 10 mg PO DAILY 04/17/16 Famotidine [Pepcid] 40 mg PO DAILY PRN PRN 04/17/16 Hydrochlorothiazide 12.5 mg PO DAILY 04/17/16 Irbesartan [Avapro] 75 mg PO DAILY 04/17/16 Nadolol [Corgard (Beta Randee)] 40 mg PO DAILY 04/17/16 Sertraline HCl [Zoloft] 100 mg PO DAILY 04/17/16 Cholecalciferol (Vitamin D3) [Vitamin D3] 2,000 unit PO DAILY 11/18/17 Caroleen-3 Fatty Acids/Fish Oil [Fish Oil 1,000 mg Capsule] 1 each PO BID 11/18/17 Pyridoxine HCl [Vitamin B-6] 100 mg PO DAILY 11/18/17 Acetaminophen [Tylenol Tablet] 650 mg PO Q6H PRN PRN tablet 11/21/17 Gentamicin Ophthalmic Drops [Garamycin Ophthalmic Drops] 2 drop RIGHT EYE Q4 opth.btl 11/21/17 Primary Care Physician: Marilee Shah MD [Primary Care Provider] - Please follow up with your Primary Care Physician in: 1-2 Weeks Please Follow Up With: Jet Bell DO When: 6-8 Weeks Disposition: [facility] facility Minutes spent on discharge:: 35 Patient Condition:: Stable Meaningful Use Info Meaningful Use Diagnoses (Choose all that apply): None applicable
--- NOTE | 2017-11-21 10:49 | DS.PCM_ITS ---
Discharge Date and Diagnosis Date of Admission: 11/18/17 Date of Discharge: 11/21/17 - Primary Discharge Diagnosis Active and Suspected Problems 1. Status post mechanical fall with associated acute right closed fracture dislocation of the proximal humerus 2. Mild rhabdomyolysis-resolved. 3. Suspected UTI-ruled out. 4. Suspected community-acquired pneumonia-ruled out. 5. Moderate protein calorie malnutrition 6. Hypernatremia-resolved. 7. Hypokalemia-resolved. - Secondary Discharge Diagnosis Chronic Problems Hyperlipidemia (Chronic) Hypertension (Chronic) Depression (Chronic) Osteoarthritis of left hip (Chronic) Gait instability (Chronic) Chronic normochromic normocytic anemia Hospital Course and Treatment Imaging Results: Diagnostic Data Brain CT 11/18/17 17:46 IMPRESSION: 1. No acute intracranial pathology. 2. Left maxillary sinus and ethmoid paranasal sinus disease Electronically Signed: Gualberto Briseno DO at 21:11 EST Tel , Service support , Pelvis X-Ray 11/18/17 17:47 IMPRESSION: No acute findings Electronically Signed: Gualberto Briseno DO at 19:08 EST Tel , Service support , Shoulder X-Ray 11/18/17 19:03 IMPRESSION: Anatomic reduction of the glenohumeral joint. Acute comminuted right humeral neck fracture with mild medial and anterior displacement. Mild degenerative change of the acromioclavicular joint. Old clavicle fracture. Infiltrate and volume loss in the right upper lobe as described on portable chest radiograph of the same day. Electronically Signed: Maura Shore MD at 21:33 EST , Service support , Upper Extremity CT 11/19/17 08:04 IMPRESSION: Comminuted impacted fracture of the proximal right humerus is medial displacement of the distal fragment Probable inferior labral injury. Small subacromial fluid collection. Soft tissue swelling Incidental visualization of worse consolidation bronchiectasis in the right upper lobe which may represent atelectasis superimposed on pre-existing lung disease recommend follow-up CT scan of the chest when appropriate. Electronically Signed: Radha Desai MD at 9:18 EST Tel , Service support , 3D Reconstruction 11/19/17 08:26 IMPRESSION: Comminuted impacted fracture of the proximal right humerus is medial displacement of the distal fragment Probable inferior labral injury. Small subacromial fluid collection. Soft tissue swelling Incidental visualization of worse consolidation bronchiectasis in the right upper lobe which may represent atelectasis superimposed on pre-existing lung disease recommend follow-up CT scan of the chest when appropriate. Electronically Signed: Radha Desai MD at 9:18 EST Tel , Service support , Dr. Bell-orthopedic surgery Operations: None Procedures: None Summary of Care Provided: Patient is a 77-year-old female admitted 11/18/2017 due to fall with right shoulder/arm pain and cough. She has a past medical history of hypertension, hyperlipidemia, depression, history of frequent falls. 1. Status post mechanical fall-X-ray shows right closed fracture dislocation of the proximal humerus-patient underwent a successful close reduction in the emergency room. Patient was seen by Dr. Bell, orthopedic surgery. She will keep her right arm in sling for the next 6-8 weeks. Patient will need follow- up with ortho at discharge in 6-8 weeks for further evaluation to determine if further operative measures are desired/indicated. Continue Tylenol as needed for pain. She has not needed stronger pain during admission to maintain comfort. Continue PT/OT at facility. Patient may flex and extend the right elbow gently. However, she will need to limit internal and external rotation. 2. Mild rhabdomyolysis-secondary to #1. Resolved with IV fluids. 3. Suspected UTI-ruled out. Patient reported to have urinary retention in the emergency room and suspected UTI. Urinalysis unremarkable. Patient is asymptomatic. Urine culture shows no growth. Gaines will need discontinued prior to discharge, and will need voiding trial prior to discharge. 4. Suspected community-acquired pneumonia-ruled out, do not further suspect pneumonia. Chest x-ray emergency room showed a scarring in the right upper lobe , lungs otherwise clear. Patient is afebrile. White count normal. Denies productive cough. Blood cultures show no growth. Urine negative for strep and Legionella. Patient did receive antibiotics which were discontinued. 5. Hypokalemia-replaced orally, resolved. Monitor BMP q week. 6. Hypernatremia-suspect secondary to hypovolemia/dehydration. Resolved IV fluids. 7. General debility-patient previously from home, alone. Patient has had history of frequent falls at home. History of fall with hip fracture. SNF at discharge. PT/OT. 8. Hypertension-stable, continue home regimen. 9. Hyperlipidemia- continue home zetia. 10. Depression-continue home sertraline. 11. Moderate protein calorie malnutrition-nutrition/dietitian consulted. Recommend further ensure supplementation at discharge. 12. Normochromic normocytic anemia-stable. General: Alert, Oriented x3, Cooperative, No apparent distress HEENT: Atraumatic, PERRLA, EOMI, Normocephalic Neck: Supple, No JVD, Negative Carotid Bruits Lungs: Clear to auscultation, Diminished Cardiovascular: Regular rate, Regular Rhythm, Normal S1, Normal S2, No murmurs Abdomen: Bowel Sounds Present, Soft, Non Tender, Non-Distended Extremities: No clubbing, No cyanosis, No edema, Capillary Refill Less than 3 Seconds Skin: No rashes, No breakdown, - - Right shoulder/arm ecchymosis. Musculoskeletal: Tenderness - Right shoulder Neurological: Cranial nerves II-XII grossly intact, Neuro grossly intact Psych/Mental Status: Normal Affect, Appropriate Patient seen and examined prior to discharge. Physical assessment as noted above. Patient is stable for discharge to [facility] facility with further follow-up by primary care physician and orthopedic surgery. This patient was seen by EMILIA Lopez under the supervision of Dr. [facility]. Home Medications: Medications to take at Discharge Aspirin [Aspirin, Baby] 81 mg PO QHS 04/17/16 Cyanocobalamin [Vitamin B12] 1,000 mcg PO DAILY@0800 04/17/16 Ezetimibe [Zetia] 10 mg PO DAILY 04/17/16 Famotidine [Pepcid] 40 mg PO DAILY PRN PRN 04/17/16 Hydrochlorothiazide 12.5 mg PO DAILY 04/17/16 Irbesartan [Avapro] 75 mg PO DAILY 04/17/16 Nadolol [Corgard (Beta Randee)] 40 mg PO DAILY 04/17/16 Sertraline HCl [Zoloft] 100 mg PO DAILY 04/17/16 Cholecalciferol (Vitamin D3) [Vitamin D3] 2,000 unit PO DAILY 11/18/17 [place]-3 Fatty Acids/Fish Oil [Fish Oil 1,000 mg Capsule] 1 each PO BID 11/18/17 Pyridoxine HCl [Vitamin B-6] 100 mg PO DAILY 11/18/17 Acetaminophen [Tylenol Tablet] 650 mg PO Q6H PRN PRN tablet 11/21/17 Gentamicin Ophthalmic Drops [Garamycin Ophthalmic Drops] 2 drop RIGHT EYE Q4 opth.btl 11/21/17 Primary Care Physician: Marilee Shah MD [Primary Care Provider] - Please follow up with your Primary Care Physician in: 1-2 Weeks Please Follow Up With: Jet Bell DO When: 6-8 Weeks Disposition: Long-Term facility Minutes spent on discharge:: 35 Patient Condition:: Stable Meaningful Use Info Meaningful Use Diagnoses (Choose all that apply): None applicable
--- NOTE | 2017-11-21 13:24 | CASEMGMT ---
Social Work Note Placed call to Savanna at [facility] and she confirms authorization for placement at SNF. PAS/RR completed and submitted in the [facility]. Copies on chart and in SNF packet. Transfer summary and medlist faxed to SNF. Copies on chart and originals in [facility] packet. [place] [facility] [place] at 15:30. Notified SNF and RN. Placed call to the pt's daughter, Mary Alice, and left vm to update. Plan: [facility]. PAS/RR submitted in [facility]. [place] [facility] [place] at 15:30. LD Shankar DIFFERENTIAL REPAIRER
[2017-11-21 13:31] VITALS: PULSE 65; RESP 18; O2SAT 94
--- NOTE | 2017-11-21 13:32 | CPS ---
PEP done on own
[2017-11-21 14:25] VITALS: BP 117/57; PULSE 78; RESP 20; TEMP 36.6; O2SAT 97
--- NOTE | 2017-11-21 15:32 | NURSING ---
Report given to [facility] at this time.
== END 2017-11-21 16:05 | disposition skilled nursing facility (03) | DRG 563 ==
LOC: ED 21:15 → MS3 22:35
PROVIDERS: Nurse Practitioner Family; Admitting Provider Family Medicine; Emergency Provider Emergency Medicine; Family Provider Internal Medicine; PCP Internal Medicine; Visit Provider Internal Medicine
DX: S42.221A 2-part displaced fracture of surgical neck of right humerus, initial encounter for closed fracture (principal); E44.0 Moderate protein-calorie malnutrition; E87.0 Hyperosmolality and hypernatremia; M62.82 Rhabdomyolysis; Z68.1 Body mass index [BMI] 19.9 or less, adult; W18.30XA Fall on same level, unspecified, initial encounter; E86.0 Dehydration; Y92.009 Unspecified place in unspecified non-institutional (private) residence as the place of occurrence of the external cause; E78.5 Hyperlipidemia, unspecified; I10 Essential (primary) hypertension; E87.6 Hypokalemia; F32.9 Major depressive disorder, single episode, unspecified; D64.9 Anemia, unspecified; Z66 Do not resuscitate; Z79.899 Other long term (current) drug therapy; M16.12 Unilateral primary osteoarthritis, left hip
CPT/HCPCS: 36415; 51702; 70450; 71045; 72170; 73030; 73200; 76377; 80048; 81001; 82550; 83036; 83605; 83735; 84484; 85025; 85027; 87040; 87086; 87449; 87493; 93005; 94640; 94667; 94668; 97162; 97166; 97530; 97802; 99152; 99285; J7030; J7050; A4216

== ENCOUNTER → 2018-01-02 10:21 | Outpatient (CLI) | payer MEDICARE, SELFPAY ==
--- NOTE | 2018-01-02 10:25 | RAD_ITS ---
STUDY: X-RAY - RIGHT SHOULDER REASON FOR EXAM: Female, 77 years old. Fracture. TECHNIQUE: 3 view(s) of the shoulder. COMPARISON: 2 views of the right shoulder November 18, 2017. FINDINGS: There is inferior subluxation of the glenohumeral articulation. Periarticular spurring of the glenoid also present. There is stable old healed fracture deformity of the mid to distal right clavicle. Normal acromioclavicular joint. There is a borderline hook of the anterior acromion consistent with a Type II-III morphology. Again seen is a transverse fracture of the humeral neck, now with nearly one shaft width medial displacement, moderate overriding, and moderate angulation of the humeral shaft relative to the humeral head The soft tissue structures are unremarkable. Normal visualized pulmonary apex. RAD/Shoulder min 2 Views IMPRESSION: Fracture at the right humeral neck again noted, unhealed, and now with significant displacement and angulation, as described. There is also inferior subluxation of the humeral head relative to the glenoid of the scapula. Electronically Signed: Mark Carmona MD at 23:26 EST , Service support ,
== END ==
PROVIDERS: Family Provider Internal Medicine; PCP Internal Medicine; Visit Provider Orthopaedic Surgery
DX: S42.321A Displaced transverse fracture of shaft of humerus, right arm, initial encounter for closed fracture (principal); S42.211A Unspecified displaced fracture of surgical neck of right humerus, initial encounter for closed fracture; X58.XXXA Exposure to other specified factors, initial encounter
CPT/HCPCS: 73030

== ENCOUNTER 2018-01-17 06:34 | Inpatient (IN) | payer MEDICARE, SELFPAY ==
[2018-01-17] VITALS (10 sets, daily range): BP systolic 95–158; BP diastolic 46–89; PULSE 47–66; RESP 16; TEMP 36.3–37.1; O2SAT 93–97; BMI 22.4; BMI 22.2
[2018-01-17] MEDS: Famotidine 20 MG Tablet 40 MG PO (08:24)
[2018-01-17] MEDS: Nadolol 40 MG Tablet PO ×2 (08:24→16:08)
[2018-01-17 08:36] LABS: M R Staph aureus DNA By PCR POSITIVE (Negative); Probe Check PASS
--- NOTE | 2018-01-17 09:15 | SHO_PTH ---
PATIENT: NAHID BARBER LOC: MS3 U#:[id number] AGE/SX: 77/F ROOM: MS313 RE01/17/[address]: Jet Bell DO : 1940 BED: 1 DIS: 01/18/2018 SPEC #: [id number] RECD: 01/17/18 12:26 STATUS: RAMONA RELucien #: [id number] JOLANTA: 01/17/18 09:[address]: Jet Bell DEPT: SURGICAL PATHOLOGY RECD BY: Dat Galloway ENTERED: 01/17/18 13:15 SP TYPE: HUMERUS OTHR DR: Dr. Marilee Shah MD Tissues: Humerus, NOS Procedures: Decalcification bone/plaque Surgery Specimen Level IV HEADER OPERATION: Total shoulder replacement, reverse PRE-OP DIAGNOSIS: Closed displaced fracture of proximal end of humerus, nonunion TISSUE SUBMITTED: Bone and tissue MICROSCOPIC DIAGNOSIS Bone and tissue, total shoulder replacement: Pieces of bone with focal area of hemorrhage and reactive changes, clinically closed displaced fracture of proximal end of humerus. EULA:pedro 01/20/18 MICROSCOPIC DESCRIPTION Slides are reviewed. GROSS DESCRIPTION Received in fixative is one container labeled with the patient's name and designated bone and tissue. The specimen consists of multiple irregular fragments of bone that in aggregate measure 9 x 8 x 1.5 cm. No obvious mass lesions are identified. The articular surfaces are smooth and glistening. The nonarticular surfaces are hemorrhagic and somewhat irregular. Clinical Nurse Leader sections are submitted in two cassettes after decalcification. / AM:pedro 01/17/18 TC:5 CPT: 71568, 14977
--- NOTE | 2018-01-17 11:29 | PCM.IMDPSTOP ---
Immediate Post-Op Note Date of Procedure: 01/17/18 Primary Surgeon/Physician: Jet Bell DO industrial engineering professor: Trish Mulligan Pre-Operative Diagnosis: Right shoulder proximal humerus nonunion Post-Operative Diagnosis: Same as above Surgery/Procedure Performed:: Right reverse total shoulder arthroplasty-ExacTech Description of Surgical Findings:: See dictation Estimated Blood Loss: 75 Specimen's removed: Bone cuts Type of Anesthesia:: General/Regional ASA Class: ASA2 Mod Systematic Disease - Admit VTE Documentation VTE Present on Admission: No VTE Mechan Device Prophylaxis: SCD's VTE Pharm Prophylaxis ordered?: Yes
--- NOTE | 2018-01-17 11:32 | OP.PCM_ITS ---
Report of Operation Date of Procedure: 01/17/18 Pre-Operative Diagnosis: Right shoulder proximal humerus nonunion Post-Operative Diagnosis: Same as above Surgery/Procedure Performed:: Right reverse total shoulder arthroplasty-ExacTech Description of Surgical Findings:: 77-year-old female with recalcitrant right shoulder pain that failed nonoperative management to include NSAIDs activity modifications. Patient had a proximal humerus fracture that appeared to be impacted and made attempted conservative care. Patient subsequent followed up at roughly 6 weeks after injury and was found at that time to have a proximal humerus nonunion with the shaft completely medialized secondary to the pool of the pectoralis. Patient was not really use the arm very much and continued pain with gentle rotation. It was my recommendation the patient undergo a reverse total shoulder arthroplasty using fracture stem secondary to injury pattern. I think this would improve her overall pain function but again patient was well cautioned that she may not have very good forward elevation will take time. Patient subsequent agreed to the aforementioned procedure. She is met in the holding area where the right upper extremity was marked and identified by the surgeon. Patient was taken the operating room in satisfactory condition where a timeout took place to identify patient operative procedure and limb. Patient received 2 g of Ancef and 1 g of TXA. She was placed into a gentle beachchair position of about 50? heads-up. Her head was in a head char filter tank tender which was in a fine neutral position. She was then prepped and draped in usual fashion. Patient initially had a standard deltopectoral approach undertaken moving from the coracoid distal laterally. We subsequently standard deltopectoral approach. We are able to take the cephalic vein medially without injury. At that point time a subdeltoid bursectomy was undertaken to mobilize the soft tissues from the scar formation. We also moved into the subacromial space to mobilize the what remnant portions of the cuff could be identified. The CA ligament was released in the strap muscles were then freed to allow for gentle mobilization of the soft tissues. Due to the nonunion and the implant selection I performed a subscap release after identifying the biceps tendon which led us into the rotator interval. This allowed for protection of the soft tissues in the neurovascular structures that may have been in nonanatomic positions relative the fracture pattern at this time. Upon release of the subscapularis the humeral head was then taken out in continuity. The patient had limited greater tuberosity. It was preserved posterior laterally in order to try to incorporate the teres minor and a portion of the infraspinatus. Subscap the supraspinatus however was incompetent. At that point time the shaft again which was medialized was able to be gently mobilized in a circumferential pattern again being cognizant of the neurovascular structures. The ends were freshened and it was then protected. We then allowed herself to begin preparation to the glenoid. Circumferential labral release was undertaken as well as capsule release. The origin site of the biceps was removed and tenotomized. At that point time standard drill bit was introduced into the center footprint of the glenoid. He performed standard reaming. We elected used a standard baseplate using the Netac system. Center hole was reamed and the again glenoid plate was then placed with the bio ingrowth cage and cancellus bone from the humeral head resection. We then fixed the glenoid baseplate using standard AO technique with multiple compression screws and the secondary locking screws. We then implanted a 38 mm glenoid sphere using the glenoid sphere locking screw system again from Netac. We then turned our attention to the stem. It was presented using standard technique. We introduced a canal finder and then broached to we had appropriate cortical contact which was roughly an 8.5 mm diameter stem. Trial stem was introduced appropriate version placed of roughly 20-30?. Patient had a small portion of the medial calcar that was preserved and allowed for appropriate height estimate. Cement was then prepared on the back table using standard technique. A cement restrictor was introduced into the canal and we then pressurized using standard technique. We then introduced the 8.5 mm Equinox fracture stem and allow the cement to cure using standard technique. We then trialed using a 38 mm humeral head liner was 0 offset. With excellent positioning and stability throughout range of motion with no signs of any notch upon abduction and no signs of any impingement to the acromion with abduction. Again I felt we had adequate stability. At that point time the head was gently dislocated to remove the trial components. We then seated our again 38 humeral liner into the 0 offset humeral adapter tray after the appropriate screw fixation had been placed. The head was then re-reduced stability was checked and maintained. We then fixed the remnant portion of the greater tuberosity into the fracture stem using multiple passes of #2 FiberWire. At that point time the wound scopes irrigated which had been performed throughout the procedure. We then reapproximated the deltoid the pectoral fascia using 0 Vicryl in a running Krak? w technique. Soft tissues reapproximated 2-0 Vicryl running subicular Monocryl and Dermabond application. Silverlon dressing was then applied. Patient was placed into an UltraSling. I was scrubbed and available time during our procedure. We had no drains or complications. Again implants included the ExacTech Equinox reverse total shoulder arthroplasty with fracture stem, 8.5 mm cemented, 38 glenoid sphere 38 mm humeral liner was 0 offset. We had a standard baseplate with multiple compression screws applied and the associated locking caps. Patient be admitted for for 24 hours of IV antibiotics appropriate IV and p.o. pain medication and DVT prophylaxis to include aspirin SCDs and teds. Patient will start gentle range of motion about the elbow joint. Based on the fact there was not very much rotator cuff repair back I will start a little bit earlier range of motion and passive forward elevation to about 90?. Any issues please contact me. assembler dielectric heater: Trish Mulligan Type of Anesthesia:: General/Regional Specimen's removed: Bone cuts Estimated Blood Loss (mL): 75 Grafts/Implants Used: ExacTech reverse total shoulder - Complications None - Admit VTE Documentation VTE Present on Admission: No VTE Mechan Device Prophylaxis: SCD's, Knee High DERECK Hose VTE Pharm Prophylaxis ordered?: Yes
--- NOTE | 2018-01-17 12:15 | RAD_ITS ---
STUDY: X-RAY - RIGHT SHOULDER REASON FOR EXAM: Female, 77 years old. Right shoulder replacement. TECHNIQUE: 2 view(s) of the shoulder. COMPARISON: Comparison is made with prior study dated January 02, 2018. FINDINGS: The patient is status post right reverse shoulder replacement. There is good alignment. RAD/Shoulder min 2 Views IMPRESSION: Status post reverse shoulder replacement. There is good alignment. Electronically Signed: Shelton Haynes MD at 13:46 EDT Tel [phone], Service support ,
[2018-01-17] MEDS: Lactated Ringers 1,000 ML 75 ML IV (13:33)
--- NOTE | 2018-01-17 15:06 | PCA ---
PT WILL NEED TRANSPORT SET UP FOR WHENEVER SHE IS DISCHARGED BACK TO THE [facility]
--- NOTE | 2018-01-17 15:55 | CASEMGMT ---
Social Work Note Pt from [facility]. [facility] placed on chart for physician to complete. Will need pre-cert to return. SW to continue to follow and assist with discharge planning. Plan: [facility] pending pre-cert. Audrey Palumbo, SUPERVISOR MULTIFOCAL LENS, BIOLOGICAL INSPECTOR
--- NOTE | 2018-01-17 16:02 | NURSING ---
Nurse contacts Thalia, nurse at [facility], to inquire about what medications patient received this morning prior to coming to the hospital. Per Thalia, patient did not receive any medications this morning.
[2018-01-17] MEDS: Famotidine 20 MG Tablet PO ×2 (16:05→21:17)
[2018-01-17] MEDS: Ezetimibe 10 MG Tablet PO (16:07)
[2018-01-17] MEDS: Ascorbic Acid 500 MG Tablet 1000 MG PO (16:07)
[2018-01-17] MEDS: HYDROCHLOROTHIAZIDE 12.5 MG CAPSULE PO (16:07)
[2018-01-17] MEDS: Sertraline 100 MG Tablet PO (16:08)
[2018-01-17] MEDS: Losartan Potassium 25 MG Tablet PO (16:08)
[2018-01-17 17:41] LABS: Anion Gap 7 (5-15); BUN 12 mg/dL (7-18); Calcium,Total 8.3 mg/dL (8.5-10.1); Chloride 107 mmol/L (98-107); Creatinine, Serum 0.48 mg/dL (0.55-1.02); EST Glomerular Filtration Rate 134 mL/min (>60); Est Glom Filt Rate - Afr Amer 162 mL/min (>60); Estimated Creatinine Clearance 41.33 ml/min; Glucose 104 mg/dL (74-106); Potassium 3.9 mmol/L (3.5-5.1); Sodium Level 140 mmol/L (136-145)
[2018-01-17] MEDS: HYDROcodone Bitartrate/Apap 5/325 Tablet PO ×2 (18:19→21:31)
[2018-01-17] MEDS: Cefazolin 1 GM/50 ML BAG IV (19:11)
[2018-01-17] MEDS: Aspirin 81 MG TAB.CHEW PO (21:17)
[2018-01-18] MEDS: Cefazolin 1 GM/50 ML BAG IV (02:38)
[2018-01-18 03:00] VITALS: BP 94/46; PULSE 61; RESP 16; TEMP 36.7; O2SAT 94
[2018-01-18] MEDS: HYDROcodone Bitartrate/Apap 5/325 Tablet PO ×2 (05:44→13:19)
[2018-01-18] MEDS: 0.9% NaCl Peripheral Flush Adult/Peds IV (06:03)
[2018-01-18 06:11] VITALS: BP 102/51; PULSE 59; RESP 16; TEMP 37.3; O2SAT 96
[2018-01-18] MEDS: Multivitamins,Therapeutic Tablet 1 TABLET PO (08:06)
[2018-01-18] MEDS: Ascorbic Acid 500 MG Tablet 1000 MG PO (08:10)
[2018-01-18] MEDS: Losartan Potassium 25 MG Tablet PO (08:10)
[2018-01-18] MEDS: Cyanocobalamin 500 MCG Tablet 1000 MCG PO (08:10)
[2018-01-18] MEDS: HYDROCHLOROTHIAZIDE 12.5 MG CAPSULE PO (08:10)
[2018-01-18] MEDS: Nadolol 40 MG Tablet PO (08:10)
[2018-01-18] MEDS: Sertraline 100 MG Tablet PO (08:11)
[2018-01-18] MEDS: Senna/Docusate Sodium 1 Tablet 2 TABLET PO (08:11)
[2018-01-18] MEDS: Pyridoxine HCl 100 MG Tablet PO (08:11)
[2018-01-18] MEDS: Famotidine 20 MG Tablet PO (08:11)
[2018-01-18] MEDS: Ezetimibe 10 MG Tablet PO (08:11)
[2018-01-18 08:25] LABS: Absolute Lymphocyte Count 1.03 X10^3/ul (0.83-4.51); Absolute Neutrophil Count 7.2 X10^3/uL (2.0-7.7); Basophil# 0.01 X10^3/uL; Basophil% 0.1 % (0-1); Eosinophil# 0.23 X10^3/uL; Eosinophils% 2.6 % (0-5); Hematocrit 33.1 % (37-47); Hemoglobin 10.4 g/dl (12.0-15.0); Lymphocyte # 1.03 X10^3/ul (4.0); Lymphocyte % 11.5 % (19-41); Mean Corp Hgb Conc 31.4 g/gl (32-36); Mean Corpuscular Hgb 30.4 pg (27.0-32.0); Mean Corpuscular Volume 96.8 fL (81-99); Mean Platelet Vol. 10.7 fl (6.2-12.0); Monocyte# 0.51 X10^3/uL; Monocyte% 5.7 % (0-10); Neutrophil # 7.18 X10^3/uL (2.7-7.7); Neutrophil % 79.8 % (47-70); Platelet Count 204 K/mm3 (150-450); RBC Distribution Width CV 13.5 % (11.6-14.6); RBC Distribution Width SD 45.7 fl (35.1-43.9); Red Blood Count 3.42 M/mm3 (4.2-5.4)
[2018-01-18 08:26] LABS: POSITIVE COUNT NO; POSITIVE DIFFERENTIAL NO; POSITIVE MORPHOLOGY NO
--- NOTE | 2018-01-18 08:41 | CASEMGMT ---
Social Work Note Face to face with the pt to discuss discharge planning. Introduced self and role at [facility]. [facility] and anticipates returning. Inform that SW will need to obtain pre-cert for her to return and anticipate this today. Will notify physician once obtained. Clinicals faxed to SNF and to insurance for pre-certification. Plan: [facility] for [facility]. Audrey Palumbo, VISUAL MERCHANDISER, GAS DISTRIBUTION PLANT OPERATOR
[2018-01-18 10:32] VITALS: BP 107/56; PULSE 54; RESP 18; TEMP 36.1; O2SAT 96
--- NOTE | 2018-01-18 12:51 | CASEMGMT ---
Social Work Note Placed call to [facility] and spoke with Amanda who confirms that the pt has been approved for placement at [facility]. Attending physician notified. Anticipate discharge this date. Plan: [facility] for [facility]. Audrey Palumbo, SEWING MACHINE REPAIRER, PICTURE HANGER
--- NOTE | 2018-01-18 13:21 | PN.ORTHO_ITS ---
Subjective: Postop day 1 status post right reverse total shoulder arthroplasty for proximal humerus nonunion. No issues overnight. Pain is controlled with p.o. pain medication. Vital signs remained stable. Patient is currently eating and sitting upright in chair. Patient has not had her elbow out of the brace at this point time. Awaiting approval for transfer back to her care home facility so they can start doing physical therapy at that time. - Physical Exam General: Alert, Oriented x3, Cooperative, No apparent distress Musculoskeletal: - - Patient is distally neurovascularly intact. Patient will fire the biceps and perform prone supination and resistance of elbow flexion with the hand in a supinated position. She can extend her arm to without difficulty. Median and ulnar nerves distally as well are also intact. The patient has sensation over the deltoid however she has difficulty with abduction the arm. Patient had this preoperatively as well which I felt was probably a contribution of her injury pattern making it difficult to fire the deltoid muscle itself. However again sensation is still intact. Hardware is otherwise well seated well-placed. Lab values reviewed and stable. Vital Signs Temp Pulse Resp BP Pulse Ox 97.0 F L 54 L 18 107/56 L 96 01/18/18 10:32 01/18/18 10:32 01/18/18 10:32 01/18/18 10:32 01/18/18 10:32 Oxygen Flow Rate (L/min) 2 Oxygen Delivery Method Nasal Cannula Weight: 130 lb 4.691 oz Body Mass Index (BMI) 22.2 Intake and Output for Last 24 Hours 01/16/18 01/17/18 01/18/18 23:59 23:59 23:59 Intake Total 2190 / 2190 1278 / 1278 Output Total 700 / 700 1000 / 1000 Balance 1490 / 1490 278 / 278 Laboratory Tests Past 24 Hrs 01/17/18 01/18/18 16:30 08:00 WBC 9.0 RBC 3.42 L Hgb 10.4 L Hct 33.1 L MCV 96.8 MCH 30.4 MCHC 31.4 L RDW 13.5 RDW Differential 45.7 H Plt Count 204 MPV 10.7 Immature Gran % (Auto) 0.300 Neut % (Auto) 79.8 H Lymph % (Auto) 11.5 L Knox % (Auto) 5.7 Eos % (Auto) 2.6 Baso % (Auto) 0.1 Absolute Neuts (auto) 7.2 Absolute Lymphs (auto) 1.03 Total Counted Not Reportable Sodium 140 Potassium 3.9 Chloride 107 Carbon Dioxide 26.0 Anion Gap 7 BUN 12 Creatinine 0.48 L Estim Creat Clear Calc 41.33 Est GFR (MDRD) Af Amer 162 Est GFR (MDRD) Non-Af 134 BUN/Creatinine Ratio 25.0 H Glucose 104 Calcium 8.3 L Medical Necessity - Tobacco Use Smoking Status: Never smoker Assessment/Plan Assessment: Postop day 1 status post right reverse total shoulder arthroplasty for proximal humerus nonunion. Plan: At this point time waiting for precertification for transfer to the care home facility. I have informed the patient and the nursing staff that the patient may freely flex and extend the elbow as tolerated and to gently perform active forward elevation using her contralateral hand to aid with active assist elevation. Patient can gently internally and externally rotate the arm either actively or passively. And I would encourage the patient to start working on active forward elevation and abduction in order to fire the deltoid muscle. It has been roughly 6-8 weeks since the patient's really been doing any significant active motion about the shoulder. Currently shoulder remained supple. Dressing in place and appears stable. The dressing will stay on for a total of 5 days. The patient may shower at this time. Do not submerge wound. Wash hands prior to touching the wound. Patient will follow with me in 2 weeks.
--- NOTE | 2018-01-18 15:45 | CASEMGMT ---
Social Work Note Placed call to Abiola at [facility] to update that pt has not yet been discharged by the physician, but he will be in this evening to do so. Green sheet placed on chart for staff to follow for discharge to SNF. Pt updated and requesting that transport be setup. Plan: [facility] pending pre-cert. Audrey Palumob, AFTERSCHOOL BABYSITTER, JET AIRCRAFT SERVICER
[2018-01-18 16:03] VITALS: BP 119/55; PULSE 62; RESP 18; TEMP 37.4; O2SAT 92
--- NOTE | 2018-01-18 16:09 | PCM.DC.ORTHO ---
Discharge Activity: Return to Normal Activity, May not drive while taking narcotic pain medications., May Shower, - - Sling while sleeping. Patient may remove arm while resting. No active loading onto the shoulder. Patient may perform active assist forward elevation to comfort level. Patient may gently internally and externally rotate the arm. Encourage flexion-extension of the elbow and working on gaining motion before stiffness occurs. May shower in (days): 1 Ice area for (Minutes): 20 Weight Bearing Status: No weight bearing Lifting Restrictions: Pounds Call your doctor if your incision/area has: Continuous Slow Oozing, Sudden Increased Bleeding, Increased Pain/ Swelling, Increased Redness, Foul Smelling Discharge, Swelling at the incision site Call your doctor if you observe: Fever of 101 or Higher, Coldness, Increased Pain, Numbness or Tingling, Change in Color, Inability to urinate, Inability to have a bowel movement, Using more than one pad per hour, Shortness of breath, Dizziness, Fainting spells, Swelling in the ankles, Chest pain, Prolonged hiccoughing, Increased palpitations (irregular heartbeat), Calf discomfort, Uncontrolled pain Suture Line Care: Avoid Pulling/Pushing, Avoid Pinching/Bending Change Dressing in (Days):: 5 Remove Dressing in (days):: 5 Cleanse incision/area with: Soap & Water Additional Dressing/Incision Instructions:: Remove dressing and 5 days. Patient may shower over top of dressing but do not submerge. Allergies/Adverse Reactions: Allergies atorvastatin calcium [From Lipitor] Allergy (Verified 01/12/18 12:13) Nausea niacin [From Niaspan Extended-Release] Allergy (Verified 01/12/18 12:13) Shortness of breath venom-honey bee [bee venom (honey bee)] Allergy (Verified 01/12/18 12:13) Anaphylaxis Medications to take at Discharge Aspirin [Aspirin, Baby] 81 mg PO QHS 04/17/16 Cyanocobalamin [Vitamin B12] 1,000 mcg PO DAILY@0800 04/17/16 Ezetimibe [Zetia] 10 mg PO DAILY 04/17/16 Famotidine [Pepcid] 40 mg PO DAILY PRN PRN 04/17/16 Hydrochlorothiazide 12.5 mg PO DAILY 04/17/16 Nadolol [Corgard (Beta Randee)] 40 mg PO DAILY 04/17/16 Sertraline HCl [Zoloft] 100 mg PO DAILY 04/17/16 Cholecalciferol (Vitamin D3) [Vitamin D3] 2,000 unit PO DAILY 11/18/17 [place]-3 Fatty Acids/Fish Oil [Fish Oil 1,000 mg Capsule] 1 each PO BID 11/18/17 Pyridoxine HCl [Vitamin B-6] 100 mg PO DAILY 11/18/17 Losartan Potassium [Cozaar] 25 mg PO DAILY 01/12/18 Sennosides [Senna] 8.6 mg PO DAILY 01/12/18 TraMADol [Ultram] 50 mg PO Q8H PRN 01/12/18 Docusate Sodium [Colace] 100 mg PO BID PRN PRN #10 cap 01/18/18 Hydrocodone Bitart/Apap 5-325 [Goodrich 5/325] 1 - 2 tab PO Q6H PRN PRN #60 tab 01/18/18 proMETHazine tablet [Phenergan] 25 mg PO Q4H PRN PRN #10 tab 01/18/18 The following prescriptions were given: proMETHazine tablet [Phenergan] 25 mg PO Q4H PRN PRN #10 tab PRN Reason: Nausea Hydrocodone Bitart/Apap 5-325 [Goodrich 5/325] 1 - 2 tab PO Q6H PRN PRN #60 tab PRN Reason: Pain Docusate Sodium [Colace] 100 mg PO BID PRN PRN #10 cap PRN Reason: Constipation Primary Care Physician: Marilee Shah MD [Primary Care Provider] - Please Follow Up With: Jet Bell DO When: call [facility] for appt for 2 weeks Proposed Discharge Date: 01/18/18
--- NOTE | 2018-01-18 16:16 | CASEMGMT ---
Social Work Note ABRAM met with patient, introduced self and role at [facility]. SW informed pt that pre-cert was approved and that [facility] is able to accept patient today. ABRAM informed pt that the physician will not be back up on the floor till about 16:30 and at this time pt will be discharged. ABRAM asked pt if she would like transportation set up through the hospital or if her family will be providing transportation. Family was in the room with pt and explained that they would feel safer if pt would get transported via ambulance. ABRAM states that transportation can be set up but that it probably won't be till later this evening when pt is able to leave. Pt and family stated understanding. Green sheet on pt's chart. Plan: Discharge to [facility] [employer]LL CLE[facility], FITTER AND TURNER
--- NOTE | 2018-01-18 16:28 | CASEMGMT ---
Social Work Note Triny [facility], TOLL BRIDGE OPERATOR, the green sheet is on pt's chart and front end java developer will be setting up transportation for pt. Informed pt and family that front end java developer will be setting up transportation for pt. Informed family that in order to dial a number in the room they must push the number [phone] and then the number they want to call but that it can not be long distance. Pt's family voiced understanding. Plan: [facility] at discharge Daisy Salazar FILLER AND TRIMMER, TOLL BRIDGE OPERATOR
--- NOTE | 2018-01-18 16:35 | CASEMGMT ---
Social Work Note Transfer summary, medlist and scripts faxed to SNF. Copies on chart and originals in SNF packet. Attempted to setup transportation via ambulette per the pt's family's request. Neither [facility] nor [facility] had wheelchair transportation available. Both denied ability to transport as cot and bill as ambulette. Placed call to [facility] to see if they were able to provide transport, and they do not have availability. Checked with their sister facility was also unable to transport. Placed call to the pt's daughter, Mary Alice, who states that she can transport and will return shortly to do so. Requests that the pt be ready. Notified RN and updated SNF. No additional d/c needs. Plan: [facility] for rehabilitation. Family to transport back to facility. Audrey Palumbo, WIRE FRAME DIPPER, CAKE PRESS OPERATOR HELPER
--- NOTE | 2018-01-18 17:18 | NURSING ---
REPORT CALLED TO BHAVESH MARTÍNEZ
[2018-01-18 17:54] VITALS: BP 119/55; PULSE 62; RESP 18; TEMP 37.4; O2SAT 92
--- NOTE | 2018-01-24 10:02 | PCM.DC.BLA ---
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 She was admitted to the floor for 24 hours of IV antibiotics appropriate IV and p.o. pain medication. DVT prophylaxis included early aggressive range of motion and weightbearing SCDs teds and 25 of aspirin. Patient had appropriate GI prophylaxis. Patient's pain was controlled with oral medication and she was felt to be clinically stable for discharge back to her assisted living where they do physical therapy. Assessment: After orthopedics status post right reverse total shoulder arthroplasty for a proximal humerus nonunion. Plan: At this point time patient will be really range of motion as tolerated to the shoulder. I encouraged her to be flex and extend the elbow as tolerated. Need to work on active forward elevation and abduction in order to get her anterior deltoid firing. Patient's range of motion will be really limited by the prosthesis only. There was minimal rotator cuff repairable at the time of surgical intervention. Patient will follow with me in 2 weeks for range of motion check neurovascular check. Patient would can start organize physical therapy as well. I will offer a physical therapy protocol at that time. Any major issues please contact me.
== END 2018-01-18 17:50 | disposition skilled nursing facility (03) | DRG 483 ==
PROVIDERS: Anesthesiology; Admitting Provider Orthopaedic Surgery; Family Provider Internal Medicine; PCP Internal Medicine; Visit Provider Orthopaedic Surgery
PROC: 0RRJ00Z Replacement of Right Shoulder Joint with Reverse Ball and Socket Synthetic Substitute, Open Approach (ICD-10-PCS; CPT 23472; principal; 2018-01-17 08:45)
DX: S42.201K Unspecified fracture of upper end of right humerus, subsequent encounter for fracture with nonunion (principal); I10 Essential (primary) hypertension; W19.XXXD Unspecified fall, subsequent encounter
CPT/HCPCS: 73030; 80048; 85025; 87641; 88305; 88311; 97162; 97166; 97802; J7120; A4216

== ENCOUNTER → 2018-03-06 14:15 | Outpatient (CLI) | payer MEDICARE, SELFPAY ==
--- NOTE | 2018-03-06 13:45 | RAD_ITS ---
STUDY: X-RAY - RIGHT SHOULDER REASON FOR EXAM: Female, 77 years old. Decreased range of motion and pain. TECHNIQUE: 2 view(s) of the shoulder. COMPARISON: January 17, 2018 FINDINGS: The glenoid component of the reverse total shoulder arthroplasty is stable. There is anterior and inferior dislocation of the humeral component of the total shoulder arthroplasty. Ossification in the soft tissues lateral to the proximal humerus is stable. There is mild arthrosis of the acromioclavicular joint unchanged. Normal acromion. Normal visualized pulmonary apex. RAD/Shoulder min 2 Views IMPRESSION: Anterior and inferior dislocation of the humeral component of the reverse total shoulder arthroplasty, as outlined above. Electronically Signed: Waldo Jovel MD at 15:08 EDT , Service support ,
--- NOTE | 2018-03-06 16:35 | PCM.CONS.B ---
- Consult Date of Consult: 03/06/18 - Reason for Consult 77-year-old female well-known to my practice who is roughly 6 weeks status post right reverse total shoulder arthroplasty. Patient was seen at 2 weeks and have been doing well. She reported today for routine follow-up examination and x-rays and was found to have a dislocated anterior inferior arthroplasty at this time. Patient is unsure when she had the dislocation. She denies any acute events. She does not know if it happened at her long-term facility during therapy, if she rolled over onto it etc. At this point time it is an unknown diagnosis of when or how it occurred. At this point time the patient was sent to the emergency room to make an attempt at a closed reduction with IV sedation. The patient's daughter had been informed that if I was unable to reduce the the patient would need to be admitted and I would make an attempt in the operating room with the possibility for need for an open reduction versus possible poly-exchange. At this point time the patient denies any kathe fevers chills nausea vomiting chest pain or shortness of breath. She will point to the right upper extremity but actually denied any kathe pain or issue. However she would only bend at the elbow. Objective: Patient is alert and oriented to person and time. Still has some degree of confusion secondary to dementia. Her heart is otherwise regular with an S1-S2. Lungs clear to auscultation bilaterally. Abdomen is soft nontender nondistended with no gross hepatosplenomegaly. She has +2 pulses. Her muscle cutaneous and axillary nerve function appears to be intact. She was able to flex and extend the elbow without difficulty and would actively supinate the hand. The patient would make an attempt at firing her axillary function against my shoulder and had good sensation over the lateral distribution of the axillary nerve. She has an obvious mass-effect to the front from her subluxation dislocation. No pulsatile changes could be appreciated. X-rays: Evaluated by myself with the patient-patient shows an anterior inferior shoulder dislocation. The glenoid sphere appears to be well seated. No signs of any obvious loss of cement fixation could be seen to the stem. Patient has a history of a proximal humerus nonunion that was treated again with reverse total shoulder arthroplasty. Assessment: Right shoulder dislocation of a reverse total shoulder arthroplasty-complication of internal orthopedic device. Patient has a history of dementia. Plan: At this point time the patient will be admitted to the floor with anticipation of going to the operating room tomorrow. The patient will be counseled and consented through her daughter for a closed reduction with IV sedation and perhaps a component of paralytic versus an open reduction and possible poly-exchange if the shoulder appears to be unstable and loose based on the implant that is in place. They understand the risks and benefits to include damage to nerves muscles arteries and veins development of DVT PE infection and need for revision procedure. At this point time the daughter would like to proceed with intervention as scheduled. We will go ahead and make the patient n.p.o. at midnight. Antibiotics be placed the chart. I will order a chest x-ray and EKG for preoperative eval. Any major issues please contact me.
== END ==
PROVIDERS: Family Provider Internal Medicine; Referring Provider Orthopaedic Surgery; Visit Provider Orthopaedic Surgery
DX: S42.201K Unspecified fracture of upper end of right humerus, subsequent encounter for fracture with nonunion (principal); Z96.611 Presence of right artificial shoulder joint
CPT/HCPCS: 73030

== ENCOUNTER 2018-03-06 14:36 | Inpatient (IN) | payer MEDICARE, SELFPAY ==
[2018-03-06] VITALS (7 sets, daily range): BP systolic 127–163; BP diastolic 50–76; PULSE 57–66; RESP 16–20; TEMP 36.6–37.5; O2SAT 92–99; BMI 22.8; BMI 22.9
--- NOTE | 2018-03-06 15:12 | ED.DCSUM_ITS ---
- ER Visit Summary Date of Service: 03/06/18 Chief Complaint: Right shoulder dislocation History of Present Illness: The patient is a 77 F who presents with a right shoulder dislocation. The patient was seen by her orthopedic surgeon today who sent her here for a reduction. He needs procedural sedation for this. She had a reverse total shoulder repair done on January [address] Bell. She lives in a halfway. She is DNR comfort care arrest. She is complaining of pain in the right shoulder. Physical Examination: Vital signs reviewed. HEENT exam unremarkable. Heart is regular rate and rhythm. Lungs are clear to auscultation. Abdomen soft nontender. Right shoulder examination reveals some tenderness and a deltoid deformity. Her incision is clean dry and intact. Neurologic exam normal. Test Results: None performed Emergency Department Course and Treatment: The patient will have sedation done by propofol. Dr. Bell attempted reduction. He was unable to perform this. He says he will admit the patient to the surgical floor. Treatment Plan: [] Disposition: [] Impression: Right prosthetic shoulder dislocation, procedural sedation by ED physician This note was generated with [employer] dictation software. It may contain incorrect words, spelling, and punctuation that were not noted in review of the chart prior to signing ED Disposition - Plan for ED Patient: Chief Complaint: Upper Extremity Injury Referrals: Remi Abdi NP-C [Primary Care Provider] -
[2018-03-06] MEDS: Propofol 200 MG/20 ML Vial IV BOLUS (15:55)
--- NOTE | 2018-03-06 15:59 | NURSING ---
DR CHAPARRO IN WITH PATIENT
--- NOTE | 2018-03-06 16:18 | NURSING ---
310 RT SHOULDER DISLOCATION KRYSTA
[2018-03-06] MEDS: Lactated Ringers 1,000 ML 75 ML IV (17:54)
[2018-03-07] VITALS (10 sets, daily range): BP systolic 117–170; BP diastolic 54–76; PULSE 50–61; RESP 16; TEMP 36.1–37.3; O2SAT 91–97; BMI 23.3; BMI 22.9
--- NOTE | 2018-03-07 05:05 | RAD_ITS ---
STUDY: X-RAY CHEST REASON FOR EXAM: Female, 77 years old. Preoperative evaluation. TECHNIQUE: Single AP portable view of the chest. COMPARISON: Comparison is made with prior study dated November 21, 2017. FINDINGS: No acute infiltrate is seen at this time. There is no demonstrated pleural abnormality. Normal size heart. Normal mediastinum and abundio. Normal visualized pulmonary arteries. There is atherosclerotic tortuosity of the aortic arch and descending thoracic aorta. Normal visualized thoracic spine. There is evidence of inferior dislocation of the right reverse shoulder replacement. Residual bony fragments are seen along the lateral aspect of the proximal right humerus. There is no demonstrated abnormality of the visualized soft tissue structures of the upper abdomen. RAD/Chest 1 View (Portable) IMPRESSION: Inferior subluxation of the prosthetic right shoulder joint. Electronically Signed: Sehlton Haynes MD at 15:11 EDT Tel [phone], Service support ,
--- NOTE | 2018-03-07 05:55 | EKG12_ITS ---
Test Reason : AM Blood Pressure : / mmHG Vent. Rate : 058 BPM Atrial Rate : 058 BPM P-R Int : 094 ms QRS Dur : 094 ms QT Int : 496 ms P-R-T Axes : 069 038 068 degrees QTc Int : 486 ms Sinus bradycardia with short OR Otherwise normal ECG Confirmed by HARDEEP IZQUIERDO, HIRA ([id number]), scientific publications editor NIA HER[employer]ULES ([id number]) on 03/16/2018 1:00:42 PM Referred By: Jet Bell Confirmed By:HIRA MEIER MD
[2018-03-07] MEDS: Lactated Ringers 1,000 ML 75 ML IV (06:04)
[2018-03-07 06:07] LABS: Absolute Lymphocyte Count 1.41 X10^3/ul (0.83-4.51); Basophil# 0.03 X10^3/uL; Basophil% 0.6 % (0-1); Eosinophil# 0.13 X10^3/uL; Eosinophils% 2.5 % (0-5); Hematocrit 34.8 % (37-47); Hemoglobin 10.9 g/dl (12.0-15.0); Lymphocyte # 1.41 X10^3/ul (4.0); Lymphocyte % 27.5 % (19-41); Mean Corp Hgb Conc 31.3 g/gl (32-36); Mean Corpuscular Hgb 29.4 pg (27.0-32.0); Mean Corpuscular Volume 93.8 fL (81-99); Mean Platelet Vol. 10.8 fl (6.2-12.0); Monocyte# 0.58 X10^3/uL; Monocyte% 11.3 % (0-10); Neutrophil # 2.96 X10^3/uL (2.7-7.7); Neutrophil % 57.9 % (47-70); Platelet Count 233 K/mm3 (150-450); RBC Distribution Width SD 45.9 fl (35.1-43.9); Red Blood Count 3.71 M/mm3 (4.2-5.4); White Blood Count 5.1 K/mm3 (4.4-11.0)
[2018-03-07 06:08] LABS: POSITIVE COUNT NO; POSITIVE DIFFERENTIAL NO; POSITIVE MORPHOLOGY NO
[2018-03-07 06:22] LABS: Anion Gap 7 (5-15); BUN 14 mg/dL (7-18); BUN/Creat Ratio 21.8 RATIO (10-20); Calcium,Total 8.8 mg/dL (8.5-10.1); Chloride 108 mmol/L (98-107); Creatinine, Serum 0.64 mg/dL (0.55-1.02); EST Glomerular Filtration Rate 95 mL/min (>60); Est Glom Filt Rate - Afr Amer 115 mL/min (>60); Estimated Creatinine Clearance 39.59 ml/min; Glucose 94 mg/dL (74-106); Sodium Level 142 mmol/L (136-145)
[2018-03-07] MEDS: Nadolol 40 MG Tablet PO (08:59)
--- NOTE | 2018-03-07 09:13 | CASEMGMT ---
Addendum entered by Daisy Salazar 03/07/18 09:35: SW faxed facesheet, ER department summary, consultation, preoperative orders, and medication list to [facility] for pre-cert and to Tiffanie at [facility]. ABRAM placed a call to [facility] and spoke with Alison to update pt that pt plans to return to [facility] at discharge and that this worker faxed clinical information to [facility]. Original Note: Addendum entered by Daisy Salazar 03/07/18 09:18: Currently, pt's clincal information/paperwork is not available. SW will fax updated clinicals when available. Original Note: Social Work Note Face to face with the pt to discuss discharge planning. Introduced self and role at [facility]. The pt reports to reside at [facility] and anticipates returning. Inform that SW will need to obtain pre-cert for her to return. Pt states understanding. SW will notify physician once pre-cert is obtained. Transfer to [facility] facility placed on chart for physician to complete. Clinicals faxed to SNF and to insurance for pre-certification. Plan: [facility] for rehabilitation Daisy Salazar MANUFACTURING ENGINEER ASSEMBLY, APPLICATIONS CHEMIST
--- NOTE | 2018-03-07 12:49 | NURSING ---
REPORT CALLED TO JACKELIN LAMBERT IN A/C.
--- NOTE | 2018-03-07 13:30 | NURSING ---
PT TO A/C VIA BED.
[2018-03-07] MEDS: Cefazolin 2 GM in 0.9% Normal Saline 100 ML IV (14:25)
--- NOTE | 2018-03-07 17:41 | RAD_ITS ---
STUDY: X-RAY - RIGHT SHOULDER REASON FOR EXAM: Female, 77 years old. Right shoulder postoperative TECHNIQUE: 2 view(s) of the shoulder. COMPARISON: 03/07/2018 FINDINGS: Previous dislocation of the right shoulder has been reduced. Right shoulder arthroplasty is noted with proximal osseous fracture about the prosthesis. Soft tissue swelling RAD/Shoulder min 2 Views IMPRESSION: As above Electronically Signed: Gualberto Briseno DO at 18:43 EDT Tel , Service support ,
--- NOTE | 2018-03-07 17:43 | OP.PN_ITS ---
Immediate Post-Op Note Date of Procedure: 03/07/18 Primary Surgeon/Physician: Jet Bell DO disability specialist: Dariela Menard Pre-Operative Diagnosis: Right shoulder dislocated reverse total shoulder arthroplasty Post-Operative Diagnosis: Same as above Surgery/Procedure Performed:: Open reduction with poly-exchange of the right shoulder Description of Surgical Findings:: See dictation Estimated Blood Loss: 100 Specimen's removed: None Type of Anesthesia:: General ASA Class: ASA2 Mod Systematic Disease - Admit VTE Documentation VTE Present on Admission: No VTE Mechan Device Prophylaxis: SCD's, Knee High DERECK Hose VTE Pharm Prophylaxis ordered?: Yes
--- NOTE | 2018-03-07 17:49 | OP.PCM_ITS ---
Report of Operation Date of Procedure: 03/07/18 Pre-Operative Diagnosis: Right shoulder dislocated reverse total shoulder arthroplasty Post-Operative Diagnosis: Same as above Surgery/Procedure Performed:: Open reduction with poly-exchange of the right shoulder Description of Surgical Findings:: 77-year-old female who lives in a [facility] who is roughly 6 weeks status post right reverse total shoulder arthroplasty for a proximal humerus fracture. Patient was initially seen at 2 weeks and the shoulder was found to be stable and symmetrically reduced. Patient followed up for her 6 week appointment was found to have anterior mass to the shoulder and x-rays were performed that revealed the patient have an anterior shoulder dislocation. The patient cannot confirm when the shoulder was dislocated or how secondary to her history of dementia. Due to the fact the patient had a shoulder dislocation she was taken to the emergency room on date of admission to make an attempt at a closed reduction. Having failed patient was subsequently consented for the aforementioned procedure. She is by the holding area of the right upper extremity was marked and identified by the with surgeon. Patient was taken the operating room in satisfactory condition with somewhat to place to identify patient operative procedure and limb. Patient received 2 g of Ancef. She initially underwent a gentle attempt at reduction however again this was unsuccessful. She was then placed in the beachchair position with all bony and soft tissue prominences protected. Her head was in a fine neutral position. She was then prepped and draped in usual fashion. Moving through the previous curvilinear incision the cephalic vein was protected laterally and the scar tissue and pectoralis tissue were gently divided using a standard deltopectoral approach. The patient was found to be anterior inferiorly dislocated. I even make an attempt at a open reduction after exposure was difficult. The patient had significant scar formation superiorly posteriorly and posterior inferiorly. I feel that based on the degree of scar formation in the impedance the posterior and posterior inferior translation of the humeral head that the patient most likely had a dislocation at some point between her initial eval but not within the recent week timeframe. My anticipation is this is been out for at least 3 weeks. At that point time the poly-component which was a 0 offset was removed using standard technique. We then performed a symmetric evaluation of the joint and removal of excess scar tissue and heterotopic bone. We did this very gently and with awareness at this axillary nerve was in close proximity of the dissection. After appropriate mobilization of the scar tissue remove any excess debris a retrial with the 0 offset was undertaken. And were able to reduce the shoulder without difficulty. I elected to go up to 2.5 mm of offset as a secondary trial and reevaluate. I was able to reduce the shoulder and felt a little more tense than previous however the fact the patient had contracture I feel that she may stretch slightly. At that point time I elected to proceed with a permanent 2.5 mm offset from the [employer] system which was the previous system for the procedure. Wound was copiously irrigated cautery used to control any excess bleeding we then impacted the Cecily using standard technique and the shoulder was then reduced symmetrically. It showed excellent range of motion no impingement anterior inferior posteriorly and no impingement through abduction. At that point time the wound scopes irrigated additional time. We reapproximated the deltopectoral fascia with #1 Vicryl using [id number] technique, the soft tissues reapproximated 2-0 Vicryl skin was reapproximated with a running subicular Monocryl and then Dermabond application. Silverlon dressing was then applied the patient was placed into a shoulder UltraSling. I was scrubbed and available time during our procedure. We had no drains or complications. Implants included a changeover of the Cecily from 0 mm of offset to a 2.5 mm offset. Patient was admitted to the floor for 24 hours of IV antibiotics appropriate IV and p.o. pain medication DVT prophylaxis to include SCDs teds and aspirin. She will be in the sling for roughly 6 weeks. I will make a reevaluation in 2 weeks. The family was counseled about the findings. I did tell them that the patient has a secondary dislocation and we will modify her glenoid sphere and poly-construct. After close discussion with the family the daughter did reveal that the patient was using a wheelchair using both shoulders moving into an extended position which may have contributed to her subluxations. This was noncompliance of my treatment algorithm or my recommendations. For now we will go ahead and proceed and deal with the dislocation and subsequent sequela and proceed with further caution in terms of her her rehab at the nursing facility. Any major issues please contact. paper sales representative: Dariela Menard Type of Anesthesia:: General Specimen's removed: None Estimated Blood Loss (mL): 100 Grafts/Implants Used: Poly-exchange from 0 mm to +2.5 mm using the [employer] system - Complications None - Admit VTE Documentation VTE Present on Admission: No VTE Mechan Device Prophylaxis: SCD's, Knee High DERECK Hose VTE Pharm Prophylaxis ordered?: Yes
[2018-03-07 18:52] LABS: Anion Gap 8 (5-15); BUN 12 mg/dL (7-18); BUN/Creat Ratio 18.1 RATIO (10-20); Calcium,Total 8.4 mg/dL (8.5-10.1); Chloride 108 mmol/L (98-107); Creatinine, Serum 0.66 mg/dL (0.55-1.02); EST Glomerular Filtration Rate 92 mL/min (>60); Est Glom Filt Rate - Afr Amer 111 mL/min (>60); Estimated Creatinine Clearance 39.59 ml/min; Glucose 97 mg/dL (74-106); Potassium 3.9 mmol/L (3.5-5.1); Sodium Level 141 mmol/L (136-145)
[2018-03-07] MEDS: HYDROcodone Bitartrate/Apap 5/325 Tablet PO (21:08)
[2018-03-07] MEDS: Cefazolin 1 GM/50 ML BAG IV (22:51)
[2018-03-08] MEDS: traMADol 50 MG Tablet PO (00:21)
[2018-03-08] MEDS: Lactated Ringers 1,000 ML 75 ML IV (00:23)
[2018-03-08 04:40] VITALS: BP 130/42; PULSE 57; RESP 16; TEMP 36.6; O2SAT 95
[2018-03-08] MEDS: HYDROcodone Bitartrate/Apap 5/325 Tablet PO ×2 (04:54→13:45)
[2018-03-08 05:37] LABS: Absolute Lymphocyte Count 1.21 X10^3/ul (0.83-4.51); Absolute Neutrophil Count 5.9 X10^3/uL (2.0-7.7); Basophil# 0.02 X10^3/uL; Basophil% 0.2 % (0-1); Eosinophil# 0.22 X10^3/uL; Eosinophils% 2.7 % (0-5); Hematocrit 33.4 % (37-47); Hemoglobin 10.6 g/dl (12.0-15.0); Lymphocyte # 1.21 X10^3/ul (4.0); Lymphocyte % 14.9 % (19-41); Mean Corp Hgb Conc 31.7 g/gl (32-36); Mean Corpuscular Hgb 28.9 pg (27.0-32.0); Mean Platelet Vol. 10.5 fl (6.2-12.0); Monocyte# 0.74 X10^3/uL; Monocyte% 9.1 % (0-10); Neutrophil # 5.91 X10^3/uL (2.7-7.7); Platelet Count 224 K/mm3 (150-450); RBC Distribution Width SD 46.6 fl (35.1-43.9); Red Blood Count 3.67 M/mm3 (4.2-5.4); White Blood Count 8.1 K/mm3 (4.4-11.0)
[2018-03-08 05:46] LABS: POSITIVE COUNT NO; POSITIVE DIFFERENTIAL NO; POSITIVE MORPHOLOGY NO
--- NOTE | 2018-03-08 06:01 | NURSING ---
Sats were 88% on room air. Oxygen applied at 1L via n/c and pulse ox now 94%.
[2018-03-08] MEDS: Cefazolin 1 GM/50 ML BAG IV (06:11)
--- NOTE | 2018-03-08 07:56 | PN.ORTHO_ITS ---
Subjective: Day 1 status post open reduction with poly-exchange for anterior inferior shoulder dislocation with a history of a reverse total shoulder arthroplasty. His point time patient appears to be doing well. She is resting in bed and getting ready to mobilize. Pain appears to be controlled at this time. Vital signs reviewed and stable. H&H is stable. - Physical Exam General: Alert, Cooperative Musculoskeletal: - - Distally neurovascular intact. Muscle cutaneous axillary nerve function appears to be intact. Patient has good sensation of the lateral deltoid and would try to fire her deltoid. She has weakness from limited motion over the last 8 weeks. Patient had a previous history of a nonunion proximal humerus fracture with little shoulder motion. This time incision appears to be clean dry and intact with a Silverlon in place no expanding hematoma. Vital Signs Temp Pulse Resp BP Pulse Ox 97.9 F 57 L 16 130/42 H 95 03/08/18 04:40 03/08/18 04:40 03/08/18 04:40 03/08/18 04:40 03/08/18 04:40 Oxygen Delivery Method Room Air Weight: 134 lb 0.657 oz Body Mass Index (BMI) 23.3 Intake and Output for Last 24 Hours 03/06/18 03/07/18 03/08/18 23:59 23:59 23:59 Intake Total 3148 / 3148 580 / 580 Output Total 700 / 700 300 / 300 Balance 2448 / 2448 280 / 280 Laboratory Tests Past 24 Hrs 03/07/18 03/08/18 18:13 05:22 WBC 8.1 RBC 3.67 L Hgb 10.6 L Hct 33.4 L MCV 91.0 MCH 28.9 MCHC 31.7 L RDW 14.0 RDW Differential 46.6 H Plt Count 224 MPV 10.5 Immature Gran % (Auto) 0.100 Neut % (Auto) 73.0 H Lymph % (Auto) 14.9 L Clare % (Auto) 9.1 Eos % (Auto) 2.7 Baso % (Auto) 0.2 Absolute Neuts (auto) 5.9 Absolute Lymphs (auto) 1.21 Total Counted Not Reportable Sodium 141 Potassium 3.9 Chloride 108 H Carbon Dioxide 25.0 Anion Gap 8 BUN 12 Creatinine 0.66 Estim Creat Clear Calc 39.59 Est GFR (MDRD) Af Amer 111 Est GFR (MDRD) Non-Af 92 BUN/Creatinine Ratio 18.1 Glucose 97 Calcium 8.4 L Medical Necessity - Tobacco Use Smoking Status: Never smoker Assessment/Plan Assessment: After orthopedics status post poly-exchange with open reduction for a reverse total shoulder arthroplasty dislocation-timeframe unknown. Patient with a history of dementia. Plan: At this point time the patient's to stay in her sling for about 6 weeks. She can flex and extend the elbow ad heather. Patient has been cautioned not to be extending the shoulder. Her daughter informed me that she was using a wheelchair which may have contributed to the instability. There is always a possibility of someone trying to move her resulting in the subluxation dislocation as well. For now sling for 6 weeks gentle internal/external rotation at a minimum. Flex and extend the elbow ad heather. If the patient is stable later today I will send her back to her senior living facility.
[2018-03-08 08:38] VITALS: BP 122/54; PULSE 54; RESP 16; TEMP 36.9; O2SAT 95
[2018-03-08 08:39] VITALS: RESP 18
[2018-03-08] MEDS: Donepezil HCl 10 MG Tablet PO (09:42)
[2018-03-08] MEDS: Nadolol 40 MG Tablet PO (09:42)
[2018-03-08] MEDS: Losartan Potassium 25 MG Tablet PO (09:42)
[2018-03-08] MEDS: Ezetimibe 10 MG Tablet PO (09:42)
[2018-03-08] MEDS: HYDROCHLOROTHIAZIDE 12.5 MG CAPSULE PO (09:42)
[2018-03-08] MEDS: Sertraline 100 MG Tablet PO (09:43)
--- NOTE | 2018-03-08 10:38 | CASEMGMT ---
Social Work Note ABRAM [facility] [employer]. ABRAM informed [facility] that PT has been ordered for pt and once available, this worker will fax over PT documents. ABRAM will continue to follow to assist with discharge planning. Plan: [facility] pending pre-cert Daisy Salazar PECAN GATHERER, PANEL ASSEMBLER
--- NOTE | 2018-03-08 12:36 | CASEMGMT ---
Social Work Note ABRAM faxed PT evaluation to Alison at [facility] ABRAM placed a call to Saav[facility]na with [facility] and per Savanna pt is able to go to [facility] but that pt only has 7 days remaining that [employer] will cover. ABRAM met with pt and pt's daughter Mary Alice was in room. ABRAM updated pt that she is able to discharge to [facility] today when the doctor clears her and that pt's insurance will only cover 7 more days. Pt and pt's daughter states understanding and states that pt has detention care coverage that should cover once [employer] stops. RN Mady in room as well and states that Dr. Bell had mentioned that pt could be discharged today. Pt's daughter Mary Alice states that she will transport pt to [facility]. Pt and pt's daughter denied additional needs or concerns at this time. ABRAM placed a call to Alison at [facility] to update her that Savanna with [employer] has approved pt to go to [facility] but that pt only has 7 more days that will be covered. Alison states understanding. ABRAM informed Alison that pt should be discharging later this afternoon and pt's daughter will be transporting her. ABRAM informed Alison that pt's daughter Mary Alice requested that pt's ice machine be ready for pt when she returns. ABRAM placed a call to Dr. Bell and left him a messaging informing him that pt's insurance has approved pt to return to [facility] when he is ready to discharge pt. Plan: Return to [facility] Daisy Salazar RAG SORTER AND CUTTER, METHODS EXAMINER
--- NOTE | 2018-03-08 13:06 | PCM.DC.ORTHO ---
Discharge Activity: May Shower, - - Sling 24 7 except for shower. Patient may flex and extend elbow ad heather. Do not extend the arm. 10? of internal and external rotation only. 75? of forward elevation active assist only. Patient is not to use a wheelchair for mobilization. She is not to lean on the arm in order to stand up. No lying on the arm. May shower in (days): 1 Weight Bearing Status: No weight bearing Lifting Restrictions: no lifting Call your doctor if your incision/area has: Continuous Slow Oozing, Sudden Increased Bleeding, Increased Pain/ Swelling, Increased Redness, Foul Smelling Discharge Call your doctor if you observe: Fever of 101 or Higher, Coldness, Increased Pain, Numbness or Tingling, Change in Color, Calf discomfort Suture Line Care: Avoid Pulling/Pushing, Avoid Pinching/Bending Change Dressing in (Days):: 5 Remove Dressing in (days):: 5 Cleanse incision/area with: Soap & Water Additional Dressing/Incision Instructions:: Dressing stays on for a total of 7 days from date of operation. Patient may shower over top of wound at this time. Do not submerge wound. Allergies/Adverse Reactions: Allergies niacin [From Niaspan Extended-Release] Allergy (Verified 03/06/18 14:39) Shortness of breath venom-honey bee [bee venom (honey bee)] Allergy (Verified 03/06/18 14:39) Anaphylaxis atorvastatin calcium [From Lipitor] Adverse Reaction (Verified 03/06/18 17:44) Nausea Medications to take at Discharge Aspirin [Aspirin, Baby] 81 mg PO QHS 04/17/16 Cyanocobalamin [Vitamin B12] 1,000 mcg PO DAILY@0800 04/17/16 Ezetimibe [Zetia] 10 mg PO DAILY 04/17/16 Famotidine [Pepcid] 40 mg PO DAILY PRN PRN 04/17/16 Hydrochlorothiazide 12.5 mg PO DAILY 04/17/16 Nadolol [Corgard (Beta Randee)] 40 mg PO DAILY 04/17/16 Sertraline HCl [Zoloft] 100 mg PO DAILY 04/17/16 Cholecalciferol (Vitamin D3) [Vitamin D3] 2,000 unit PO DAILY 11/18/17 Faucett-3 Fatty Acids/Fish Oil [Fish Oil 1,000 mg Capsule] 1 ea PO BID 11/18/17 Pyridoxine HCl [Vitamin B-6] 100 mg PO QHS 11/18/17 Losartan Potassium [Cozaar] 25 mg PO DAILY 01/12/18 Sennosides [Senna] 8.6 mg PO DAILY 01/12/18 traMADol [Ultram] 50 mg PO Q8H 01/12/18 Docusate Sodium [Colace] 100 mg PO BID PRN PRN #10 cap 01/18/18 Hydrocodone Bitart/Apap 5-325 [Kilgore 5/325] 1 - 2 tab PO Q6H PRN PRN #60 tab 01/18/18 proMETHazine tablet [Phenergan tablet] 25 mg PO Q4H PRN PRN #10 tab 01/18/18 Acetaminophen [Tylenol] 650 mg PO Q6H PRN PRN 03/06/18 Donepezil HCl [Aricept] 10 mg PO DAILY 03/06/18 Docusate Sodium [Colace] 100 mg PO BID PRN PRN #10 cap 03/08/18 Hydrocodone Bitart/Apap 5-325 [Kilgore 5/325] 1 - 2 tab PO Q6H PRN PRN #60 tab 03/08/18 proMETHazine tablet [Phenergan] 25 mg PO Q4H PRN PRN #10 tab 03/08/18 The following prescriptions were given: proMETHazine tablet [Phenergan] 25 mg PO Q4H PRN PRN #10 tab PRN Reason: Nausea Hydrocodone Bitart/Apap 5-325 [Kilgore 5/325] 1 - 2 tab PO Q6H PRN PRN #60 tab PRN Reason: Pain Docusate Sodium [Colace] 100 mg PO BID PRN PRN #10 cap PRN Reason: Constipation Primary Care Physician: Remi Abdi NP-C [Primary Care Provider] - Please Follow Up With: Jet Bell DO When: CALL [facility] FOR APPT FOR 2 WEEKS Proposed Discharge Date: 03/08/18
[2018-03-08 13:49] VITALS: BP 125/47; PULSE 67; RESP 18; TEMP 37; O2SAT 97
--- NOTE | 2018-03-08 14:49 | CASEMGMT ---
Addendum entered by Daisy Salazar 03/08/18 17:22: ABRAM informed Obdulia, area secretary, that signed medication list and scripts need to faxed to [facility] before pt can be discharged. Original Note: Social Work Note ABRAM faxed transfer to extended care facility, discharge instructions, medication list and scripts to Alison at [facility]. It should be noted that Dr. Bell hasn't signed the medication list or scripts yet but this worker went ahead and faxed them. If Dr. Bell is not over to sign medication list and scripts before this worker leaves for the day, a green sheet will be placed on chart to inform the staff to fax over signed medication list and scripts. Per Alison at [facility] this worker needs to complete [facility] [place]. [facility] completed. Pt's daughter Mary Alice will be provide transportation. ABRAM placed a call to Alison at [facility] informing her that this worker is unsure when pt's doctor will be around to sign medication list and scripts and that pt may be discharged later this evening. Alison states understanding and states that she will inform the staff at [facility]. Green sheet on chart. Plan: Discharge to [facility] once medication list and scripts have been signed. Daisy Salazar CONSTRUCTION CONTRACTOR, INFORMATION MANAGER
--- NOTE | 2018-03-08 16:03 | PCM.DC.BLA ---
Discharge Summary Date of Admission: 03/06/18 Date of Discharge: 03/08/18 Summary: 77-year-old female roughly 6 weeks status post right reverse total shoulder arthroplasty who presented to my clinic on day of admission with an anterior inferior shoulder dislocation of unknown time interval. Patient was initially seen at 2 weeks postop and everything appeared to be going well. Patient cannot state when or if the shoulder came out. Patient has underlying history of dementia. Patient was separately taken to the operating room for an attempted closed reduction which failed and then subsequent open reduction scar and capsular decompression with a poly-exchange and reduction of the R TSA. Patient was admitted back to the floor for 24 hours of IV antibiotics appropriate IV and p.o. pain medication DVT prophylaxis to include SCDs teds and aspirin. Patient tolerated regular diet was evaluated by OT and PT and found to be appropriate for transfer back to retirement facility. Assessment: [facility] status post right open reduction with poly-exchange for a dislocated reverse total shoulder arthroplasty. Plan: At this point time patient will resume OT and PT at her skilled nurse facility. I will keep her in a brace for roughly 4 weeks. Perhaps even 6. I will make an assessment at HER-2 week follow-up to include radiographs. I have concerns that the patient may have been performing extension exercises and/or mobility with weightbearing onto the extremity and/or using a wheelchair at the skilled nurse facility which is a no go at this time. Extension puts the risk for dislocation at a higher level and that is a movement that needs to be avoided. Currently the patient can perform external rotation exercises at the side and forward assist elevation to 75?. No active abduction external rotation at this point.
--- NOTE | 2018-03-08 16:06 | DS.PCM_ITS ---
Discharge Summary Date of Admission: 03/06/18 Date of Discharge: 03/08/18 Summary: 77-year-old female roughly 6 weeks status post right reverse total shoulder arthroplasty who presented to my clinic on day of admission with an anterior inferior shoulder dislocation of unknown time interval. Patient was initially seen at 2 weeks postop and everything appeared to be going well. Patient cannot state when or if the shoulder came out. Patient has underlying history of dementia. Patient was separately taken to the operating room for an attempted closed reduction which failed and then subsequent open reduction scar and capsular decompression with a poly-exchange and reduction of the R TSA. Patient was admitted back to the floor for 24 hours of IV antibiotics appropriate IV and p.o. pain medication DVT prophylaxis to include SCDs teds and aspirin. Patient tolerated regular diet was evaluated by OT and PT and found to be appropriate for transfer back to longterm facility. Assessment: [facility] status post right open reduction with poly- exchange for a dislocated reverse total shoulder arthroplasty. Plan: At this point time patient will resume OT and PT at her skilled nurse facility. I will keep her in a brace for roughly 4 weeks. Perhaps even 6. I will make an assessment at HER-2 week follow-up to include radiographs. I have concerns that the patient may have been performing extension exercises and/or mobility with weightbearing onto the extremity and/or using a wheelchair at the skilled nurse facility which is a no go at this time. Extension puts the risk for dislocation at a higher level and that is a movement that needs to be avoided. Currently the patient can perform external rotation exercises at the side and forward assist elevation to 75?. No active abduction external rotation at this point.
[2018-03-08 16:50] VITALS: BP 125/47; PULSE 67; RESP 16; TEMP 37; O2SAT 97
== END 2018-03-08 16:47 | disposition skilled nursing facility (03) | DRG 517 ==
LOC: ED 16:10 → MS3 03-07 05:17
PROVIDERS: Admitting Provider Orthopaedic Surgery; Emergency Provider Emergency Medicine; Family Provider Internal Medicine; Visit Provider Orthopaedic Surgery
PROC: 0RWJ0JZ Revision of Synthetic Substitute in Right Shoulder Joint, Open Approach (ICD-10-PCS; CPT 23472; principal; 2018-03-07 07:00)
DX: T84.028A Dislocation of other internal joint prosthesis, initial encounter (principal); Z96.611 Presence of right artificial shoulder joint; F03.90 Unspecified dementia, unspecified severity, without behavioral disturbance, psychotic disturbance, mood disturbance, and anxiety
CPT/HCPCS: 36415; 71045; 73030; 80048; 85025; 93005; 97162; 99285; C1776; J7030; J7120; A4216

== ENCOUNTER → 2018-03-22 14:25 | Outpatient (CLI) | payer MEDICARE, SELFPAY ==
--- NOTE | 2018-03-22 14:28 | RAD_ITS ---
STUDY: X-RAY - RIGHT SHOULDER REASON FOR EXAM: Female, 77 years old. Shoulder dislocation. TECHNIQUE: 2 view(s) of the shoulder. COMPARISON: 03/07/2018. FINDINGS: There is complete dislocation of a right shoulder arthroplasty. The humeral component is inferior and anterior to the scapular component. No acute fractures are seen. IMPRESSION: Complete dislocation of a right shoulder arthroplasty. Electronically Signed: Tree Crooks MD at 23:05 EDT , Service support , RAD/Shoulder min 2 Views
== END ==
PROVIDERS: Family Provider Internal Medicine; Visit Provider Orthopaedic Surgery
DX: T84.028A Dislocation of other internal joint prosthesis, initial encounter (principal); Z96.619 Presence of unspecified artificial shoulder joint
CPT/HCPCS: 73030

== ENCOUNTER 2019-01-08 22:55 | Inpatient (IN) | payer MEDICARE, SELFPAY ==
[2019-01-08 22:56] VITALS: BP 159/56; PULSE 68; RESP 18; TEMP 37.2; O2SAT 91; BMI 25.2
--- NOTE | 2019-01-08 23:12 | EKG12_ITS ---
Test Reason : PRE-OP Blood Pressure : / mmHG Vent. Rate : 069 BPM Atrial Rate : 069 BPM P-R Int : 110 ms QRS Dur : 080 ms QT Int : 422 ms P-R-T Axes : 060 037 055 degrees QTc Int : 452 ms Sinus rhythm with sinus arrhythmia with short KS Otherwise normal ECG Confirmed by FLAKITO IZQUIERDO, KAREEN ([id number]), book or script editor SHERON IRAHETA ([id number]) on 01/11/2019 11:07:31 AM Referred By: SHILPA Confirmed By:KAREEN FRAGA MD
--- NOTE | 2019-01-08 23:13 | RAD_ITS ---
STUDY: X-RAY - RIGHT HIP REASON FOR EXAM: Female, 78 years old. Fall. Right hip pain. TECHNIQUE: 2 views of the hip. COMPARISON: None. FINDINGS: There is a markedly angulated, displaced and distracted right femoral neck fracture. There is rotation of the humeral head relative to the shaft. There is no dislocation. No other definite acute abnormalities. RAD/HIP, UNI W/ Pelvis 2-3 Views IMPRESSION: Significantly angulated and displaced fracture of the right femoral neck. Electronically Signed: Tree Crooks MD at 23:36 EDT , Service support ,
--- NOTE | 2019-01-08 23:15 | ED.VISSUMM ---
- ER Visit Summary Date of Service: 01/08/19 Chief Complaint: Fall with right hip pain History of Present Illness: The patient is a 78 F who fell forward from the toilet and injured her right hip. She denies any other injury from her fall. Past history significant for dementia, hypertension, high cholesterol, and depression. Patient has had prior left hip surgery by Dr. Reyna. Physical Examination: Vital signs grossly unremarkable. Patient is lying in bed no acute distress. Head and neck examination reveals no external sign of trauma. Heart is regular rate and rhythm. Lung sounds are clear. Abdomen is soft nontender. Lower extremity examination reveals the right leg to be shortened and externally rotated. She is able to wiggle her toes and has strong distal pulses. Sensation is equal and intact. Test Results: Pelvis and right hip x-rays reveal right femoral neck fracture. Portable chest x-ray shows borderline cardiomegaly and mild pulmonary congestion. EKG is sinus at 69 with no sign of acute ischemia. CBC was a white count of 13.1 with 86% neutrophils. Chemistry studies grossly unremarkable. Coags are normal. Emergency Department Course and Treatment: Patient was given fentanyl, Zofran, and IV fluids. Patient had had surgery in the past both Dr. Reyna as well as Dr. Bell. After discussion with the family they would like to Dr. Reyna or his group to care for the patient. I spoke with Dr. Kasi Padron, on-call for Dr. Reyna. Patient is to be kept n.p.o. and will likely have surgery to repair her hip this afternoon. This has been relayed to the hospitalist. Treatment Plan: [] Disposition: Admit Impression: Right hip fracture This note was generated with [employer] dictation software. It may contain incorrect words, spelling, and punctuation that were not noted in review of the chart prior to signing ED Disposition - Plan for ED Patient: Disposition: Acute Care Hospital [facility]
--- NOTE | 2019-01-08 23:20 | RAD_ITS ---
STUDY: X-RAY CHEST REASON FOR EXAM: Female, 78 years old. Chest pain after fall. TECHNIQUE: Single AP portable view of the chest. COMPARISON: March 07, 2018. FINDINGS: behavioral therapy coordinator leads are present. The lungs are underexpanded compared to the previous study with prominence of bronchovascular markings. There is no demonstrated pleural abnormality. There is borderline cardiomegaly. Normal mediastinum and abundio. There is prominence of the pulmonary hilar arteries without peripheral pulmonary vascular congestion. There is atherosclerotic calcification of the aortic arch with tortuosity. There is demineralization of the osseous structures. The patient has had a total right shoulder arthroplasty. There appears to be an old fracture of the right clavicle. There is no demonstrated abnormality of the visualized soft tissue structures of the upper abdomen. RAD/Chest 1 View (Portable) IMPRESSION: Borderline cardiomegaly and mild pulmonary congestion. Electronically Signed: Chantel Padron MD at 3:05 EDT , Service support ,
[2019-01-08] MEDS: Ondansetron 4 MG/2 ML Vial IV (23:45)
[2019-01-08] MEDS: 0.9% Normal Saline 1,000 ML 100 ML IV (23:46)
[2019-01-08] MEDS: fentaNYL 100 MCG/2 ML Ampul 25 MCG IV (23:46)
[2019-01-08 23:50] VITALS: BP 134/56; PULSE 70; RESP 24; O2SAT 96
[2019-01-09] VITALS (17 sets, daily range): BP systolic 112–138; BP diastolic 39–71; PULSE 52–87; RESP 16–20; TEMP 36.4–37.3; O2SAT 93–100; BMI 24.0
[2019-01-09 00:03] LABS: International Normalized Ratio 1.2; Partial Thromboplast Time 28.6 Seconds (24.1-36.2); Prothrombin Time (Protime)PT. 14.7 SECONDS (11.7-14.9)
[2019-01-09 00:17] LABS: Anion Gap 8 (5-15); BUN 19 mg/dL (7-18); BUN/Creat Ratio 23.5 RATIO (10-20); Calcium,Total 8.5 mg/dL (8.5-10.1); Chloride 108 mmol/L (98-107); Creatinine, Serum 0.81 mg/dL (0.55-1.02); EST Glomerular Filtration Rate 73 mL/min (>60); Est Glom Filt Rate - Afr Amer 89 mL/min (>60); Estimated Creatinine Clearance 48.11 ml/min; Glucose 143 mg/dL (74-106); Sodium Level 141 mmol/L (136-145)
[2019-01-09 00:24] LABS: Basophil% 0.1 % (0-1); Eosinophils% 0.2 % (0-5); Hematocrit 38.9 % (37-47); Hemoglobin 12.5 g/dl (12.0-15.0); Lymphocyte % 5.3 % (19-41); Mean Corp Hgb Conc 32.1 g/gl (32-36); Mean Corpuscular Hgb 31.5 pg (27.0-32.0); Mean Platelet Vol. 11.4 fl (6.2-12.0); Monocyte% 7.9 % (0-10); Neutrophil % 86.2 % (47-70); POSITIVE COUNT NO; POSITIVE DIFFERENTIAL NO; POSITIVE MORPHOLOGY NO; Platelet Count 177 K/mm3 (150-450); RBC Distribution Width CV 12.8 % (11.6-14.6); RBC Distribution Width SD 44.6 fl (35.1-43.9); Red Blood Count 3.97 M/mm3 (4.2-5.4); White Blood Count 13.1 K/mm3 (4.4-11.0)
[2019-01-09 00:25] LABS: Absolute Lymphocyte Count 0.69 X10^3/ul (0.83-4.51); Absolute Neutrophil Count 11.3 X10^3/uL (2.0-7.7); Basophil# 0.01 X10^3/uL; Eosinophil# 0.02 X10^3/uL; Lymphocyte # 0.69 X10^3/ul (4.0); Monocyte# 1.04 X10^3/uL
--- NOTE | 2019-01-09 00:28 | ED.RN ---
SPOKE WITH MIKI AT [facility]. STATES [facility]SE WILL FAX MED REC TO OUR FACILITY. TOOK REPORT AND VERBALIZED UNDERSTANDING THAT PT HAS A FEMUR FRACTURE AND WILL BE ADMITTED
--- NOTE | 2019-01-09 00:57 | HP.PCM_ITS ---
Problem List (1) Closed right hip fracture Status: Acute History of Present Illness Date of Admission: 01/09/19 Chief Complaint: fall with right hip pain The patient is a 78 year old F with a significant history of dementia; hypertension; hyperlipidemia; and depression who live at a correction and presented because she fell whiles on the commode. Reportedly patient was fixing her socks and her shoe while on the commode and she fell. She reports pain at the right hip. Severity of her pain is 5 out of 10. Patient does not provide answer to the characteristic of her pain. Emergency department doctor talked to Dr. Kasi Padron and huber Young rthopedic recommended that patient be kept n.p.o. for possible intervention. Past Medical History Past Medical History (Chronic Problems): Chronic Problems (Last Reviewed 01/02/18 @ 11:10 by Nettie Puentes) Hyperlipidemia (Chronic) Hypertension (Chronic) Depression (Chronic) Osteoarthritis of left hip (Chronic) Gait instability (Chronic) Allergies niacin [From Niaspan Extended-Release] Allergy (Verified 01/08/19 23:15) Shortness of breath venom-honey bee [bee venom (honey bee)] Allergy (Verified 01/08/19 23:15) Anaphylaxis atorvastatin calcium [From Lipitor] Adverse Reaction (Verified 01/08/19 23:15) Nausea Home Medications: Ambulatory Orders Medication Instructions Recorded Cyanocobalamin [Vitamin B12] 1,000 mcg PO DAILY@0800 04/17/16 Ezetimibe [Zetia] 10 mg PO QHS 04/17/16 Famotidine [Pepcid] 40 mg PO DAILY 04/17/16 Nadolol [Corgard (Beta Randee)] 40 mg PO DAILY 04/17/16 Sertraline HCl [Zoloft] 50 mg PO DAILY 04/17/16 Cholecalciferol (Vitamin D3) 2,000 unit PO DAILY 11/18/17 [Vitamin D3] [place]-3 Fatty Acids/Fish Oil [Fish 1,000 mg PO BID 11/18/17 Oil 1,000 mg Capsule] Pyridoxine HCl [Vitamin B-6] 200 mg PO DAILY 11/18/17 Losartan Potassium [Cozaar] 50 mg PO DAILY 01/12/18 Sennosides [Senna] 8.6 mg PO DAILY 01/12/18 proMETHazine tablet [Phenergan 25 mg PO Q4H PRN PRN #10 tab 01/18/18 tablet] Acetaminophen [Tylenol] 650 mg PO Q6H PRN PRN 03/06/18 Donepezil HCl [Aricept] 10 mg PO DAILY 03/06/18 Docusate Sodium [Colace] 100 mg PO BID PRN PRN #10 cap 03/08/18 Docusate Sodium [Colace] 100 mg PO DAILY 01/09/19 Surgical History: Surgical History (Last Reviewed 01/09/19 @ 03:54 by Mario Mariano MD) 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 Skin: Denies: Rash, Wounds Neurological: Denies: Numbness, Tingling, Focal weakness Psychiatric: Denies: Anxiety, Depression, Homicidal Ideations, Suicidal Ideations Hematologic/ Lymphatic: Denies: Easy Bruising, Easy Bleeding VTE Information - Inpt Only VTE Present on Admission: No VTE Mechan Device Prophylaxis: SCD's VTE Pharm Prophylaxis ordered?: No Patient Problems: Active and Suspected Problems (Last Reviewed 01/02/18 @ 11:10 by Nettie Puentes) Closed right hip fracture (Acute) - Physical Exam General: Alert, Cooperative HEENT: Atraumatic, PERRLA, EOMI, Normocephalic Neck: Supple, No JVD, Negative Carotid Bruits Lungs: Clear to auscultation, Normal air movement Cardiovascular: Regular rate, No murmurs Abdomen: Bowel Sounds Present, Soft, Non Tender Extremities: No edema, Capillary Refill Less than 3 Seconds, Tenderness - R hip Skin: No rashes, No breakdown Musculoskeletal: No Tenderness to Palpation of Joints or Extremities Neurological: Cranial nerves II-XII grossly intact Psych/Mental Status: Normal Affect, Appropriate Vital Signs Temp Pulse Resp BP Pulse Ox 98.9 F 70 24 H 134/56 H 96 01/08/19 22:56 01/08/19 23:50 01/08/19 23:50 01/08/19 23:50 01/08/19 23:50 Oxygen Flow Rate (L/min) 2 Oxygen Delivery Method Nasal Cannula Weight: 64.7 kg Body Mass Index (BMI) 25.2 Laboratory Tests Past 24 Hrs 01/08/19 01/08/19 01/08/19 23:00 23:00 23:00 WBC 13.1 H RBC 3.97 L Hgb 12.5 Hct 38.9 MCV 98.0 MCH 31.5 MCHC 32.1 RDW 12.8 RDW Differential 44.6 H Plt Count 177 MPV 11.4 Immature Gran % (Auto) 0.300 Neut % (Auto) 86.2 H Lymph % (Auto) 5.3 L [place] % (Auto) 7.9 Eos % (Auto) 0.2 Baso % (Auto) 0.1 Absolute Neuts (auto) 11.3 H Absolute Lymphs (auto) 0.69 L Total Counted Not Reportable PT 14.7 INR 1.2 APTT 28.6 Sodium 141 Potassium 4.0 Chloride 108 H Carbon Dioxide 25.0 Anion Gap 8 BUN 19 H Creatinine 0.81 Estim Creat Clear Calc 48.11 Est GFR (MDRD) Af Amer 89 Est GFR (MDRD) Non-Af 73 BUN/Creatinine Ratio 23.5 H Glucose 143 H Calcium 8.5 Assessment/Plan All Active Problems (Last Reviewed 01/02/18 @ 11:10 by Nettie Puentes) Closed right hip fracture (Acute) Closed left hip fracture (Acute) Leucocytosis (Acute) Hip fracture, left (Acute) Rhabdomyolysis (Acute) Right humeral fracture (Acute) Dislocation of right shoulder joint (Acute) Fall (Acute) Pneumonia (Acute) UTI (urinary tract infection) (Acute) Urinary retention (Acute) The patient is a 78 year old F with a significant history of dementia; hypertension; hyperlipidemia; and depression who live at a correction and presented because she fell while on the commode and has a radiographic evidence of right hip fracture. Acute fracture of left hip Independent review of Hip/Pelvis X-ray shows right hip fracture; and total hip replacement of left hip, intact. We will keep patient n.p.o. for possible surgery. While n.p.o. we will put patient on lactated Ringer's Pain control with as needed Tylenol; PRN morphine IV and as needed oxycodone. Continue home antiemetics with Phenergan. Continue home bowel protocol with Senokot and Colace. Patient has no chest pain, or shortness of breath. Family denies any cardiac or pulmonary history. Patient is a low risk for hip surgery. Independent review of EKG confirms arrhythmia with short GA interval. Otherwise no remarkable. Dr. Padron, orthopedic surgeon consulted. Dementia Aricept continued Hypertension On presentation her blood pressure was stable in regard to her age. Home Cozaar continued. Trend blood pressure and adjust blood pressure medication. Hyperlipidemia Zetia continued DVT prophylaxis SCD. Consider chemoprophylaxis after surgery. Code Visit Inpatient E&M: 77983 Init Hosp L3
[2019-01-09] MEDS: Lactated Ringers 1,000 ML 75 ML IV (03:31)
[2019-01-09] MEDS: Morphine 2 MG/ML Syringe IV ×2 (06:24→12:11)
[2019-01-09 07:24] LABS: Absolute Lymphocyte Count 1.06 X10^3/ul (0.83-4.51); Absolute Neutrophil Count 8.9 X10^3/uL (2.0-7.7); Basophil# 0.03 X10^3/uL; Basophil% 0.3 % (0-1); Eosinophil# 0.11 X10^3/uL; Hematocrit 35.7 % (37-47); Hemoglobin 11.2 g/dl (12.0-15.0); Lymphocyte # 1.06 X10^3/ul (4.0); Lymphocyte % 9.8 % (19-41); Mean Corp Hgb Conc 31.4 g/gl (32-36); Mean Corpuscular Hgb 31.2 pg (27.0-32.0); Mean Corpuscular Volume 99.4 fL (81-99); Mean Platelet Vol. 11.2 fl (6.2-12.0); Monocyte# 0.76 X10^3/uL; Neutrophil # 8.87 X10^3/uL (2.7-7.7); Neutrophil % 81.7 % (47-70); POSITIVE COUNT NO; POSITIVE DIFFERENTIAL NO; POSITIVE MORPHOLOGY NO; Platelet Count 198 K/mm3 (150-450); RBC Distribution Width SD 45.6 fl (35.1-43.9); Red Blood Count 3.59 M/mm3 (4.2-5.4); White Blood Count 10.9 K/mm3 (4.4-11.0)
[2019-01-09 07:52] LABS: Anion Gap 6 (5-15); BUN 17 mg/dL (7-18); BUN/Creat Ratio 24.3 RATIO (10-20); Calcium,Total 8.3 mg/dL (8.5-10.1); Chloride 110 mmol/L (98-107); EST Glomerular Filtration Rate 86 mL/min (>60); Est Glom Filt Rate - Afr Amer 105 mL/min (>60); Estimated Creatinine Clearance 38.97 ml/min; Glucose 111 mg/dL (74-106); Potassium 4.2 mmol/L (3.5-5.1); Sodium Level 142 mmol/L (136-145)
--- NOTE | 2019-01-09 09:19 | CASEMGMT ---
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. Daisy Salazar TURN OUT WORKER, VAMP CUT OUT WORKER
--- NOTE | 2019-01-09 11:24 | NURSING ---
PER BIJU MARTÍNEZ STAFF, PT REFUSED FLU VACCINE 2018 & ALSO REFUSED HERE @ [facility]
--- NOTE | 2019-01-09 11:47 | CASEMGMT ---
Social Work: Spoke with patient and daughter in room. Patient is a senior living care patient at [facility]. Patient and daughter wish for patient to return to [facility] at D/C. Patient and daughter agreeable to patient returning under skilled level of care for therapy post surgical intervention. Patient giving this SW permission to call [facility] with update. TC to [facility]. Spoke with Tiffanie who is aware that patient will be returning at D/C. Tiffanie requesting insurance pre-cert be initiated for patient to return under a skilled level of care for therapy. TC to ROYAL Corrales at [facility] aware that patient will have surgical repair of hip today. [facility]anna requesting clinicals be faxed once therapy has evaluated patient for initiation of pre cert for skilled care. SW to continue to follow as needed for D/C planning. BRIDGER Mahan updated. ANGELA Monroy-S
[2019-01-09] MEDS: 0.9% NaCl Peripheral Flush Adult/Peds IV (12:12)
--- NOTE | 2019-01-09 13:23 | PCM.PROGNOTE ---
Patient Problems: Active and Suspected Problems (Last Reviewed 01/02/18 @ 11:10 by Nettie Puentes) Closed right hip fracture (Acute) Subjective: The patient is a 78-year-old female with a past medical history of hyperlipidemia, dementia, hypertension, left MARBELLA, depression, osteoarthritis and gait instability who presented to the emergency department at [facility] on 01/09/2019 after having a fall at the OR where she resides. An x-ray of the right hip done in the emergency department showed a significantly angulated and displaced fracture of the right femoral neck. Platelets and hemoglobin were within normal limits. BMP was remarkable for a BUN of 19 with a creatinine of 0.81. Chest x-ray per my review shows no pleural effusion, infiltrate or significant pulmonary vascular congestion. She was admitted to the medical surgical floor and pain management was ordered. Dr. Kais Padron was consulted regarding the fractured hip. IV fluids were ordered and she was kept n.p.o. for possible surgery today. EKG showed normal sinus rhythm with a short DE interval but no suspicious ST or T wave changes that would indicate ischemia. - Physical Exam General: Cooperative HEENT: Atraumatic, PERRLA Oral: Dry Mucosa Neck: Supple, No Nodes, Trachea Midline Lungs: Clear to auscultation, No rhonchi, No wheeze, No rales Cardiovascular: Regular rate, Regular Rhythm, Normal S1, Normal S2, - - Occasional premature beat Abdomen: Bowel Sounds Present, Soft, Non Tender, Non-Distended, - - No guarding with palpation Extremities: No clubbing, No cyanosis, No edema Neurological: - - No focal neurologic deficits Vital Signs Temp Pulse Resp BP Pulse Ox 99.0 F 56 L 18 112/50 L 97 01/09/19 12:22 01/09/19 12:22 01/09/19 12:22 01/09/19 12:22 01/09/19 12:22 Oxygen Flow Rate (L/min) 2 Oxygen Delivery Method Nasal Cannula Weight: 135 lb 9.349 oz Body Mass Index (BMI) 24.0 Intake and Output for Last 24 Hours 01/07/19 01/08/19 01/09/19 23:59 23:59 23:59 Intake Total 634 / 634 Output Total 700 / 700 Balance -66 / -66 Laboratory Tests Past 24 Hrs 01/08/19 01/08/19 01/08/19 23:00 23:00 23:00 WBC 13.1 H RBC 3.97 L Hgb 12.5 Hct 38.9 MCV 98.0 MCH 31.5 MCHC 32.1 RDW 12.8 RDW Differential 44.6 H Plt Count 177 MPV 11.4 Immature Gran % (Auto) 0.300 Neut % (Auto) 86.2 H Lymph % (Auto) 5.3 L [place] % (Auto) 7.9 Eos % (Auto) 0.2 Baso % (Auto) 0.1 Absolute Neuts (auto) 11.3 H Absolute Lymphs (auto) 0.69 L Total Counted Not Reportable PT 14.7 INR 1.2 APTT 28.6 Sodium 141 Potassium 4.0 Chloride 108 H Carbon Dioxide 25.0 Anion Gap 8 BUN 19 H Creatinine 0.81 Estim Creat Clear Calc 48.11 Est GFR (MDRD) Af Amer 89 Est GFR (MDRD) Non-Af 73 BUN/Creatinine Ratio 23.5 H Glucose 143 H Calcium 8.5 Blood Type Antibody Screen 01/08/19 01/09/19 01/09/19 23:00 06:35 06:35 WBC 10.9 RBC 3.59 L Hgb 11.2 L Hct 35.7 L MCV 99.4 H MCH 31.2 MCHC 31.4 L RDW 13.0 RDW Differential 45.6 H Plt Count 198 MPV 11.2 Immature Gran % (Auto) 0.200 Neut % (Auto) 81.7 H Lymph % (Auto) 9.8 L [place] % (Auto) 7.0 Eos % (Auto) 1.0 Baso % (Auto) 0.3 Absolute Neuts (auto) 8.9 H Absolute Lymphs (auto) 1.06 Total Counted Not Reportable PT INR APTT Sodium 142 Potassium 4.2 Chloride 110 H Carbon Dioxide 26.0 Anion Gap 6 BUN 17 Creatinine 0.70 Estim Creat Clear Calc 38.97 Est GFR (MDRD) Af Amer 105 Est GFR (MDRD) Non-Af 86 BUN/Creatinine Ratio 24.3 H Glucose 111 H Calcium 8.3 L Blood Type A POSITIVE Antibody Screen NEGATIVE Medical Necessity - Tobacco Use Smoking Status: Never smoker Assessment/Plan All Active Problems (Last Reviewed 01/02/18 @ 11:10 by Nettie Puentes) Closed right hip fracture (Acute) Closed left hip fracture (Acute) Leucocytosis (Acute) Hip fracture, left (Acute) Rhabdomyolysis (Acute) Right humeral fracture (Acute) Dislocation of right shoulder joint (Acute) Fall (Acute) Pneumonia (Acute) UTI (urinary tract infection) (Acute) Urinary retention (Acute) Impressions 1. Traumatic right hip fracture secondary to fall 2. Dementia 3. Hypertension 4. Hyperlipidemia 5. Osteoarthritis OR today with Dr. Vito Hayden lab in the a.m. Code Visit Inpatient E&M: 73648 Subs Hosp L2
--- NOTE | 2019-01-09 13:30 | PN_ITS ---
Patient Problems: Active and Suspected Problems (Last Reviewed 01/02/18 @ 11:10 by Nettie Puentes) Closed right hip fracture (Acute) Subjective: The patient is a 78-year-old female with a past medical history of hyperlipidemia, dementia, hypertension, left MARBELLA, depression, osteoarthritis and gait instability who presented to the emergency department at [facility] on 01/09/2019 after having a fall at the [place] where she resides. An x-ray of the right hip done in the emergency department showed a significantly angulat ed and displaced fracture of the right femoral neck. Platelets and hemoglobin were within normal limits. BMP was remarkable for a BUN of 19 with a creatinine of 0.81. Chest x-ray per my review shows no pleural effusion, infiltrate or significant pulmonary vascular congestion. She was admitted to the medical surgical floor and pain management was ordered. Dr. Kasi Padron was consulted regarding the fractured hip. IV fluids were ordered and she was kept n.p.o. for possible surgery today. EKG showed normal sinus rhythm with a short WA interval but no suspicious ST or T wave changes that would indicate ischemia. - Physical Exam General: Cooperative HEENT: Atraumatic, PERRLA Oral: Dry Mucosa Neck: Supple, No Nodes, Trachea Midline Lungs: Clear to auscultation, No rhonchi, No wheeze, No rales Cardiovascular: Regular rate, Regular Rhythm, Normal S1, Normal S2, - - Occasional premature beat Abdomen: Bowel Sounds Present, Soft, Non Tender, Non-Distended, - - No guarding with palpation Extremities: No clubbing, No cyanosis, No edema Neurological: - - No focal neurologic deficits Vital Signs Temp Pulse Resp BP Pulse Ox 99.0 F 56 L 18 112/50 L 97 01/09/19 12:22 01/09/19 12:22 01/09/19 12:22 01/09/19 12:22 01/09/19 12:22 Oxygen Flow Rate (L/min) 2 Oxygen Delivery Method Nasal Cannula Weight: 135 lb 9.349 oz Body Mass Index (BMI) 24.0 Intake and Output for Last 24 Hours 01/07/19 01/08/19 01/09/19 23:59 23:59 23:59 Intake Total 634 / 634 Output Total 700 / 700 Balance -66 / -66 Laboratory Tests Past 24 Hrs 01/08/19 01/08/19 01/08/19 23:00 23:00 23:00 WBC 13.1 H RBC 3.97 L Hgb 12.5 Hct 38.9 MCV 98.0 MCH 31.5 MCHC 32.1 RDW 12.8 RDW Differential 44.6 H Plt Count 177 MPV 11.4 Immature Gran % (Auto) 0.300 Neut % (Auto) 86.2 H Lymph % (Auto) 5.3 L [place] % (Auto) 7.9 Eos % (Auto) 0.2 Baso % (Auto) 0.1 Absolute Neuts (auto) 11.3 H Absolute Lymphs (auto) 0.69 L Total Counted Not Reportable PT 14.7 INR 1.2 APTT 28.6 Sodium 141 Potassium 4.0 Chloride 108 H Carbon Dioxide 25.0 Anion Gap 8 BUN 19 H Creatinine 0.81 Estim Creat Clear Calc 48.11 Est GFR (MDRD) Af Amer 89 Est GFR (MDRD) Non-Af 73 BUN/Creatinine Ratio 23.5 H Glucose 143 H Calcium 8.5 Blood Type Antibody Screen 01/08/19 01/09/19 01/09/19 23:00 06:35 06:35 WBC 10.9 RBC 3.59 L Hgb 11.2 L Hct 35.7 L MCV 99.4 H MCH 31.2 MCHC 31.4 L RDW 13.0 RDW Differential 45.6 H Plt Count 198 MPV 11.2 Immature Gran % (Auto) 0.200 Neut % (Auto) 81.7 H Lymph % (Auto) 9.8 L [place] % (Auto) 7.0 Eos % (Auto) 1.0 Baso % (Auto) 0.3 Absolute Neuts (auto) 8.9 H Absolute Lymphs (auto) 1.06 Total Counted Not Reportable PT INR APTT Sodium 142 Potassium 4.2 Chloride 110 H Carbon Dioxide 26.0 Anion Gap 6 BUN 17 Creatinine 0.70 Estim Creat Clear Calc 38.97 Est GFR (MDRD) Af Amer 105 Est GFR (MDRD) Non-Af 86 BUN/Creatinine Ratio 24.3 H Glucose 111 H Calcium 8.3 L Blood Type A POSITIVE Antibody Screen NEGATIVE Medical Necessity - Tobacco Use Smoking Status: Never smoker Assessment/Plan All Active Problems (Last Reviewed 01/02/18 @ 11:10 by Nettie Puentes) Closed right hip fracture (Acute) Closed left hip fracture (Acute) Leucocytosis (Acute) Hip fracture, left (Acute) Rhabdomyolysis (Acute) Right humeral fracture (Acute) Dislocation of right shoulder joint (Acute) Fall (Acute) Pneumonia (Acute) UTI (urinary tract infection) (Acute) Urinary retention (Acute) Impressions 1. Traumatic right hip fracture secondary to fall 2. Dementia 3. Hypertension 4. Hyperlipidemia 5. Osteoarthritis OR today with Dr. Vito Hayden lab in the a.m. Code Visit Inpatient E&M: 62739 Subs Hosp L2
--- NOTE | 2019-01-09 14:14 | NURSING ---
TO [facility] VIA BED
--- NOTE | 2019-01-09 14:22 | NURSING ---
REPORT CALLED TO JACKELIN PARDO IN [facility]
[2019-01-09] MEDS: Cefazolin 2 GM in 0.9% Normal Saline 100 ML IV (15:10)
--- NOTE | 2019-01-09 17:17 | PCM.OP.PRO ---
Procedure Report Date of Procedure: 01/09/19 Preoperative diagnosis: Right hip displaced femoral neck fracture Postoperative diagnosis: Same Operation: Right hip cemented hemiarthroplasty Surgeon: Dr. Kasi Padron MD Booster Pump Operator: Dariela HO Anesthesia: General Anesthesiologist; Dr. Andrews Special medications: IV [Ancef], IV Tranexamic acid IV x 2 Indications for surgery : Patient is a 78 -year-old [female] that fell yesterday fracturing right hip. Appropriate informed consent was obtained and signed. Appropriate medical workup was performed preoperatively and patient was deemed safe for surgery by the anesthesia department assistant education director, [place] was utilized throughout the entire procedure. They were vital in helping with patient positioning, holding of retractors, exposing the tissues adequately for safe completion of the procedure including cutting of the bone, helping seasonal delivery driver appropriate alignment and sizing of the components, implantation of the components, as well as wound closure, bandage application, and safe patient transfer. Without surgical services coordinator, physician geriatric nursing assistant, surgical time would have been significantly increased, and surgical outcome would have been less optimal. Operative findings: Patient displaced comminuted right femoral neck fracture. We used a [place] Accolade size #4 cemented stem,45 mm biplolar femoral head with a +4 neck length. This reproduced there anatomy nicely. Clinically good leg lengths were noted. Good hip stability through range of motion with no undue pistoning. Standard wound closure in layers, followed by delvis, followed by Mepilex dressing Details of procedure: Patient was taken to the operating room and transferred to the operating table. Given appropriate anesthetic agent by that department. Patient was then rolled into a lateral decubitus position with the involved painful hip up in the air. Appropriate timeouts had been performed. Hip had been appropriately marked with my initials. Padded anterior and posterior position was utilized. Axillary roll placed. DERECK hose and SCDs on the nonoperative limb utilized throughout the procedure. Operative lower extremity was prepped padded and draped in the usual orthopedic sterile fashion for the procedure. I injected the pain relieving solution in the standard sterile technique of the soft tissues of the hip carefully. Incision was made curving over the tip of the greater trochanter posteriorly. Full thickness skin flaps are raised down on the fascia hetal. Fascia hetal was opened in length with our incision. Charnley self-retaining hip retractor was carefully placed by the surgeon. Leg was appropriately rotated by the geriatric nursing assistant. Retractor was used to lift the abductors anteriorly to visualize the piriformis tendon and external rotators. Piriformis tendon and external rotators released off the greater trochanter with the Bovie. Tagging suture was placed in each of these separately. We then split the tissue superior to the piriformis tendon through capsule and onto the pelvis. Acetabular labrum was preserved. Retractors were carefully placed around the femoral neck. Displaced unstable femoral neck fracture identified. cutting guide was utilized to map out the proposed cut approximately 1 fingerbreadth above the lesser trochanter. This femoral neck cut was carried out with a saw. Fractured femoral head removed and measured and inspected. Femoral head was measured. Appropriate trial was utilized. A proximal femoral elevator utilized. We used a sharp awl entering down inside the bone of the proximal femur. Utilized the [employer] cutting osteotome the proximal lateral greater trochanteric region. The fragment removed. Broaching was then done from the smallest broach, upto the appropriate size. Good stability was confirmed. We then trialed the construct with a standard neck length and appropriate sized femoral head. We were happy with the construct. Good stability to flexion, rotation. At this point trials removed. 2 full batches of antibiotic bone cement were mixed. 2 sponges were placed in the acetabulum we prepared the canal with brushing. Cement restrictor was placed down to the appropriate depth. It was thoroughly irrigated clean and dry. When the cement was as the appropriate texture, we pressurized cement down in the femoral canal. The appropriate size stem then hammered into the proximal femur and seated down to a similar position as the trial had. Excess bone cement removed. Stem was held still while cement fully hardened. Pain relieving solution was injected while this was occurring. The cement was fully hardened, sponges were removed from the acetabulum. We now again trialed and appropriate neck length decided upon. It was then opened. Now impacted the appropriate sized femoral head, neck construct onto the clean dried trunion. Was noted to be stable. Hip was inspected, and joint was reduced for a final time. Good hip stability and leg lengths noted. This was then irrigated with saline and cleaned. Next the remainder of the pain relieving solution was injected carefully throughout the soft tissues of the hip joint. Closure was carried out with a combination of #1 Vicryl repairing the hip capsule as well as piriformis tendon and external rotators to bone, running #2 strata fix in the fascia hetal, followed by mid layer #1 Vicryl with #1 strata fix running. Next running 0 strata fix, followed by skin delvis, Xeroform, Mepilex dressing. We placed DERECK hose and SCD on the operative leg. Patient awoken from the anesthetic and transferred back to room bed in recovery room in satisfactory condition. Patient will be admitted to the hospital. Hospitalist service will continue to manage the medical issues. Hopeful discharge to home or ECF in 2-3 days. This note was generated with Spaseeb[employer] dictation software. It may contain incorrect words, spelling, and punctuation that were not noted in checking the note before signing.
--- NOTE | 2019-01-09 17:21 | PRO.PCM_ITS ---
Procedure Report Date of Procedure: 01/09/19 Preoperative diagnosis: Right hip displaced femoral neck fracture Postoperative diagnosis: Same Operation: Right hip cemented hemiarthroplasty Surgeon: Dr. Kasi Padron MD Advertiser: Dariela HO Anesthesia: General Anesthesiologist; Dr. Andrews Special medications: IV [Ancef], IV Tranexamic acid IV x 2 Indications for surgery : Patient is a 78 -year-old [female] that fell yesterday fracturing right hip. Appropriate informed consent was obtained and signed. Appropriate medical workup was performed preoperatively and patient was deemed safe for surgery by the anesthesia department assistant men's soccer coach, [place] was utilized throughout the entire procedure. They were vital in helping with patient positioning, holding of retractors, exposing the tissues adequately for safe completion of the procedure including cutting of the bone, helping bonus clerk appropriate alignment and sizing of the components, implantation of the components, as well as wound closure, bandage application, and safe patient transfer. Without supply chain assistant, physician classroom assistant, surgical time would have been significantly increased, and surgical outcome would have been less optimal. Operative findings: Patient displaced comminuted right femoral neck fracture. We used a [place] Accolade size #4 cemented stem,45 mm biplolar femoral head with a +4 neck length. This reproduced there anatomy nicely. Clinically good leg lengths were noted. Good hip stability through range of motion with no undue pistoning. Standard wound closure in layers, followed by delvis, followed by Mepilex dressing Details of procedure: Patient was taken to the operating room and transferred to the operating table. Given appropriate anesthetic agent by that department. Patient was then rolled into a lateral decubitus position with the involved painful hip up in the air. Appropriate timeouts had been performed. Hip had been appropriately marked with my initials. Padded anterior and posterior position was utilized. Axillary roll placed. DERECK hose and SCDs on the nonoperative limb utilized throughout the procedure. Operative lower extremity was prepped padded and draped in the usual orthopedic sterile fashion for the procedure. I injected the pain relieving solution in the standard sterile technique of the soft tissues of the hip carefully. Incision was made curving over the tip of the greater trochanter posteriorly. Full thickness skin flaps are raised down on the fascia hetal. Fascia hetal was opened in length with our incision. [place] self-retaining hip retractor was carefully placed by the surgeon. Leg was appropriately rotated by the classroom assistant. Retractor was used to lift the abductors anteriorly to visualize the piriformis tendon and external rotators. Piriformis tendon and external rotators released off the greater trochanter with the Bovie. Tagging suture was placed in each of these separately. We then split the tissue superior to the piriformis tendon through capsule and onto the pelvis. Acetabular labrum was preserved. Retractors were carefully placed around the femoral neck. Displaced unstable femoral neck fracture identified. cutting guide was utilized to map out the proposed cut approximately 1 fingerbreadth above the lesser trochanter. This femoral neck cut was carried out with a saw. Fractured femoral head removed and measured and inspected. Femoral head was measured. Appropriate trial was utilized. A proximal femoral elevator utilized. We used a sharp awl entering down inside the bone of the proximal femur. Utilized the [employer] cutting osteotome the proximal lateral greater trochanteric region. The fragment removed. Broaching was then done from the smallest broach, upto the appropriate size. Good stability was confirmed. We then trialed the construct with a standard neck length and appropriate sized femoral head. We were happy with the construct. Good stability to flexion, rotation. At this point trials removed. 2 full batches of antibiotic bone cement were mixed. 2 sponges were placed in the acetabulum we prepared the canal with brushing. Cement restrictor was placed down to the appropriate depth. It was thoroughly irrigated clean and dry. When the cement was as the appropriate texture, we pressurized cement down in the femoral canal. The appropriate size stem then hammered into the proximal femur and seated down to a similar position as the trial had. Excess bone cement removed. Stem was held still while cement fully hardened. Pain relieving solution was injected while this was occurring. The cement was fully hardened, sponges were removed from the acetabulum. We now again trialed and appropriate neck length decided upon. It was then opened. Now impacted the appropriate sized femoral head, neck construct onto the clean dried trunion. Was noted to be stable. Hip was inspected, and joint was reduced for a final time. Good hip stability and leg lengths noted. This was then irrigated with saline and cleaned. Next the remainder of the pain relieving solution was i njected carefully throughout the soft tissues of the hip joint. Closure was carried out with a combination of #1 Vicryl repairing the hip capsule as well as piriformis tendon and external rotators to bone, running #2 strata fix in the fascia hetal, followed by mid layer #1 Vicryl with #1 strata fix running. Next running 0 strata fix, followed by skin delvis, Xeroform, Mepilex dressing. We placed DERECK hose and SCD on the operative leg. Patient awoken from the anesthetic and transferred back to room bed in recovery room in satisfactory condition. Patient will be admitted to the hospital. Hospitalist service will continue to manage the medical issues. Hopeful discharge to home or ECF in 2-3 days. This note was generated with Guest [employer] dictation software. It may contain incorrect words, spelling, and punctuation that were not noted in checking the note before signing.
--- NOTE | 2019-01-09 17:25 | CON.PCM_ITS ---
Reason for Consult Date of Consultation: 01/09/19 History of Present Illness: The patient is a 78 year old female that fell yesterday fracturing her right hip. Denies head injury or loss of consciousness. No known pre-existing right hip pain. Patient was brought to the hospital and diagnosed with a right hip fracture. Orthopedics was consulted. Patient is a poor historian. She has dementia. Seen with her family present. 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) Allergies niacin [From Niaspan Extended-Release] Allergy (Verified 01/08/19 23:15) Shortness of breath venom-honey bee [bee venom (honey bee)] Allergy (Verified 01/08/19 23:15) Anaphylaxis atorvastatin calcium [From Lipitor] Adverse Reaction (Verified 01/08/19 23:15) Nausea Home Medications: Ambulatory Orders Medication Instructions Recorded Cyanocobalamin [Vitamin B12] 1,000 mcg PO DAILY@0800 04/17/16 Ezetimibe [Zetia] 10 mg PO QHS 04/17/16 Famotidine [Pepcid] 40 mg PO DAILY 04/17/16 Nadolol [Corgard (Beta Randee)] 40 mg PO DAILY 04/17/16 Sertraline HCl [Zoloft] 50 mg PO DAILY 04/17/16 Cholecalciferol (Vitamin D3) 2,000 unit PO DAILY 11/18/17 [Vitamin D3] [place]-3 Fatty Acids/Fish Oil [Fish 1,000 mg PO BID 11/18/17 Oil 1,000 mg Capsule] Pyridoxine HCl [Vitamin B-6] 200 mg PO DAILY 11/18/17 Losartan Potassium [Cozaar] 50 mg PO DAILY 01/12/18 Sennosides [Senna] 8.6 mg PO DAILY 01/12/18 proMETHazine tablet [Phenergan 25 mg PO Q4H PRN PRN #10 tab 01/18/18 tablet] Acetaminophen [Tylenol] 650 mg PO Q6H PRN PRN 03/06/18 Donepezil HCl [Aricept] 10 mg PO DAILY 03/06/18 Docusate Sodium [Colace] 100 mg PO BID PRN PRN #10 cap 03/08/18 Docusate Sodium [Colace] 100 mg PO DAILY 01/09/19 Surgical History: Surgical History (Last Reviewed 01/09/19 @ 03:54 by Mario Mariano MD) 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 Psychiatric History: Depression EMBEDDED SOFTWARE MANAGER History: No pertinent EMBEDDED SOFTWARE MANAGER history Lives: Long Term Smoking Status: Never smoker Alcohol: Occasional - *Family History Maternal History Items: Dementia, Heart Disease Paternal History Items: Heart Disease Patient Problems: Active and Suspected Problems (Last Reviewed 01/02/18 @ 11:10 by Nettie Puentes) Closed right hip fracture (Acute) Objective: Review of systems noted on the chart and reviewed. Again patient is a poor historian. Right hip has shortening and external rotation. Right hip has pain on palpation. She does plantarflex and dorsiflex toes and ankles bilaterally on command. Left hip has a well-healed incision. Lower extremities seem neurovascular intact. No obvious calf pain or swelling. Negative Homans sign. She does have right hip pain with any motion of the right lower extremity. X-rays reviewed showing a displaced right femoral neck fracture. Left hip cemented hemiarthroplasty noted in good position. Laboratory work and vital signs reviewed. - Physical Exam Vital Signs Temp Pulse Resp BP Pulse Ox 99.0 F 56 L 18 112/50 L 97 01/09/19 12:22 01/09/19 12:22 01/09/19 12:22 01/09/19 12:22 01/09/19 12:22 Oxygen Flow Rate (L/min) 2 Oxygen Delivery Method Nasal Cannula Weight: 61.5 kg Body Mass Index (BMI) 24.0 Intake and Output for Last 24 Hours 01/07/19 01/08/19 01/09/19 23:59 23:59 23:59 Intake Total 634 / 634 Output Total 850 / 850 Balance -216 / -216 Laboratory Tests Past 24 Hrs 01/08/19 01/08/19 01/08/19 23:00 23:00 23:00 WBC 13.1 H RBC 3.97 L Hgb 12.5 Hct 38.9 MCV 98.0 MCH 31.5 MCHC 32.1 RDW 12.8 RDW Differential 44.6 H Plt Count 177 MPV 11.4 Immature Gran % (Auto) 0.300 Neut % (Auto) 86.2 H Lymph % (Auto) 5.3 L Bond % (Auto) 7.9 Eos % (Auto) 0.2 Baso % (Auto) 0.1 Absolute Neuts (auto) 11.3 H Absolute Lymphs (auto) 0.69 L Total Counted Not Reportable PT 14.7 INR 1.2 APTT 28.6 Sodium 141 Potassium 4.0 Chloride 108 H Carbon Dioxide 25.0 Anion Gap 8 BUN 19 H Creatinine 0.81 Estim Creat Clear Calc 48.11 Est GFR (MDRD) Af Amer 89 Est GFR (MDRD) Non-Af 73 BUN/Creatinine Ratio 23.5 H Glucose 143 H Calcium 8.5 Blood Type Antibody Screen 01/08/19 01/09/19 01/09/19 23:00 06:35 06:35 WBC 10.9 RBC 3.59 L Hgb 11.2 L Hct 35.7 L MCV 99.4 H MCH 31.2 MCHC 31.4 L RDW 13.0 RDW Differential 45.6 H Plt Count 198 MPV 11.2 Immature Gran % (Auto) 0.200 Neut % (Auto) 81.7 H Lymph % (Auto) 9.8 L Bond % (Auto) 7.0 Eos % (Auto) 1.0 Baso % (Auto) 0.3 Absolute Neuts (auto) 8.9 H Absolute Lymphs (auto) 1.06 Total Counted Not Reportable PT INR APTT Sodium 142 Potassium 4.2 Chloride 110 H Carbon Dioxide 26.0 Anion Gap 6 BUN 17 Creatinine 0.70 Estim Creat Clear Calc 38.97 Est GFR (MDRD) Af Amer 105 Est GFR (MDRD) Non-Af 86 BUN/Creatinine Ratio 24.3 H Glucose 111 H Calcium 8.3 L Blood Type A POSITIVE Antibody Screen NEGATIVE Assessment/Plan All Active Problems (Last Reviewed 01/02/18 @ 11:10 by Nettie Puentes) Closed right hip fracture (Acute) Closed left hip fracture (Acute) Leucocytosis (Acute) Hip fracture, left (Acute) Rhabdomyolysis (Acute) Right humeral fracture (Acute) Dislocation of right shoulder joint (Acute) Fall (Acute) Pneumonia (Acute) UTI (urinary tract infection) (Acute) Urinary retention (Acute) Right hip displaced femoral neck fracture. Diagnosis and treatment options discussed with her family. They have been through this before. Appropriate consent obtained. All of their questions answered. Risk of surgery including but not limited to from operative or postoperative complications. Risk of anesthetic complications such as heart attacks, strokes, seizures, or . Risk of infections. Risk of damage to nerves arteries tendons. Risk of inadvertent fractures or dislocations. Risk of bone or wound healing complications. Possibility of nonunion malunion pain stiffness weakness. Possible need for further surgery such as hardware removal. Risk of DVT PE and other potential complications could lead to or disability explained. No guarantees were stated or implied. All of their questions were answered. Appropriate informed consent was obtained and signed for surgical intervention. We will use Ancef for perioperative antibiotic. Aspirin for DVT prevention postoperatively. Other medical issues and concerns to be evaluated and treated by hospitalist service
--- NOTE | 2019-01-09 17:39 | PCA ---
pt off floor
--- NOTE | 2019-01-09 17:50 | RAD_ITS ---
STUDY: X-RAY - PELVIS AND RIGHT HIP REASON FOR EXAM: Female, 78 years old. Postop right hip. TECHNIQUE: 2 views of the pelvis and hip. COMPARISON: AP pelvis and 2 additional views of the right hip January 08, 2019. FINDINGS: There is a non-specific bowel gas pattern. Small calcified phlebolith again projects in the left pelvic soft tissues. There is a stable indwelling left bipolar hip prosthesis. Normal bilateral iliac wings, sacroiliac joints and visualized sacrum. Normal bilateral superior and inferior pubic rami. There are stable degenerative changes of the pubic symphysis with articular narrowing and sclerosis. Normal bilateral ischial tuberosities. The patient has undergone left total hip arthroplasty. Following resection of the femoral head and neck, a metal bipolar hip prosthesis was placed. The acetabular and femoral components appear well seated, and in anatomic alignment. Gas lucencies overlapping the hip are consistent with recent surgery. A line of metal skin delvis noted along the tissues lateral to the hip. There is no demonstrated acute fracture. RAD/Hip Min 2 Views (Portable) IMPRESSION: Status post right total hip arthroplasty. Electronically Signed: Mark Carmona MD at 18:41 EDT , Service support ,
[2019-01-09] MEDS: Cefazolin 1 GM/50 ML BAG IV (20:53)
[2019-01-09] MEDS: Ipratropium/Albuterol Sulfate 3 ML AMPUL.NEB INHALATION (20:57)
[2019-01-09] MEDS: Ezetimibe 10 MG Tablet PO (21:01)
[2019-01-10] VITALS (7 sets, daily range): BP systolic 116–121; BP diastolic 49–65; PULSE 70–92; RESP 14–18; TEMP 36.7–37; O2SAT 92–95
[2019-01-10] MEDS: 0.9% Normal Saline 1,000 ML 100 ML IV ×2 (00:17→11:49)
[2019-01-10] MEDS: oxyCODONE 5 MG Tablet PO ×3 (03:24→22:03)
[2019-01-10] MEDS: Cefazolin 1 GM/50 ML BAG IV ×2 (03:24→09:24)
[2019-01-10 06:00] LABS: Hematocrit 31.5 % (37-47); Hemoglobin 9.7 g/dl (12.0-15.0); Mean Corp Hgb Conc 30.8 g/gl (32-36); Mean Corpuscular Hgb 30.9 pg (27.0-32.0); Mean Corpuscular Volume 100.3 fL (81-99); Mean Platelet Vol. 11.2 fl (6.2-12.0); Platelet Count 136 K/mm3 (150-450); RBC Distribution Width CV 13.1 % (11.6-14.6); RBC Distribution Width SD 45.8 fl (35.1-43.9); Red Blood Count 3.14 M/mm3 (4.2-5.4); White Blood Count 7.8 K/mm3 (4.4-11.0)
[2019-01-10 06:11] LABS: Scan Indicated on CBC? Y/N NO
[2019-01-10 06:23] LABS: Anion Gap 8 (5-15); BUN 16 mg/dL (7-18); BUN/Creat Ratio 20.1 RATIO (10-20); Calcium,Total 7.8 mg/dL (8.5-10.1); Chloride 108 mmol/L (98-107); EST Glomerular Filtration Rate 74 mL/min (>60); Est Glom Filt Rate - Afr Amer 90 mL/min (>60); Estimated Creatinine Clearance 48.72 ml/min; Glucose 93 mg/dL (74-106); Potassium 4.1 mmol/L (3.5-5.1); Sodium Level 142 mmol/L (136-145)
--- NOTE | 2019-01-10 12:58 | PCM.PROGNOTE ---
Patient Problems: Active and Suspected Problems (Last Reviewed 01/02/18 @ 11:10 by Nettie Puentes) Closed right hip fracture (Acute) Subjective: Postoperative day #1-status post repair right hip fracture All events in the past 24 hours been reviewed. Afebrile since admission Vital signs are stable She is 92-95% saturated on a 2 L nasal cannula. All lab was personally reviewed. The white blood cell count is 7.8 today. Hemoglobin has dropped to 9.7 with hydration and surgery. Platelets are mildly decreased at 136,000. The electrolytes are unremarkable. BUN is 16 and the creatinine is 0.8. She denies pain at this time. Also denies chest pain, shortness of breath, palpitations, nausea, vomiting, abdominal pain. Objective: PHYSICAL EXAM: GENERAL: alert, oriented X 3, Cooperative, NAD ORAL: moist mucosa, no mucosal lesions NECK: No JVD, supple, trachea midline LUNGS: CTA, symmetric chest expansion HEART: RRR, Normal S1 and S2, no rub, no gallop ABDOMEN: soft, NT, ND, BS present, no guarding with palpation EXTREMITIES: no edema, no cyanosis, no calf tenderness, the dressing over the right hip is dry, intact sensation to both feet. SKIN: No rashes, no breakdown NEUROLOGIC: no focal neurologic deficits PSYCH: appropriate, normal affect, pleasant - Physical Exam Vital Signs Temp Pulse Resp BP Pulse Ox 98.6 F 90 18 121/49 H 92 01/10/19 07:55 01/10/19 07:55 01/10/19 09:00 01/10/19 07:55 01/10/19 08:33 Oxygen Flow Rate (L/min) 2 Oxygen Delivery Method Nasal Cannula Weight: 135 lb 9.349 oz Body Mass Index (BMI) 24.0 Intake and Output for Last 24 Hours 01/08/19 01/09/19 01/10/19 23:59 23:59 23:59 Intake Total 1854 / 1854 1622 / 1622 Output Total 1025 / 1025 275 / 275 Balance 829 / 829 1347 / 1347 Laboratory Tests Past 24 Hrs 01/10/19 01/10/19 05:38 05:38 WBC 7.8 RBC 3.14 L Hgb 9.7 L Hct 31.5 L MCV 100.3 H MCH 30.9 MCHC 30.8 L RDW 13.1 RDW Differential 45.8 H Plt Count 136 L MPV 11.2 Sodium 142 Potassium 4.1 Chloride 108 H Carbon Dioxide 26.0 Anion Gap 8 BUN 16 Creatinine 0.80 Estim Creat Clear Calc 48.72 Est GFR (MDRD) Af Amer 90 Est GFR (MDRD) Non-Af 74 BUN/Creatinine Ratio 20.1 H Glucose 93 Calcium 7.8 L Medical Necessity - Tobacco Use Smoking Status: Never smoker Assessment/Plan All Active Problems (Last Reviewed 01/02/18 @ 11:10 by Nettie Puentes) Closed right hip fracture (Acute) Closed left hip fracture (Acute) Leucocytosis (Acute) Hip fracture, left (Acute) Rhabdomyolysis (Acute) Right humeral fracture (Acute) Dislocation of right shoulder joint (Acute) Fall (Acute) Pneumonia (Acute) UTI (urinary tract infection) (Acute) Urinary retention (Acute) Impressions 1. Traumatic right hip fracture secondary to fall 2. Dementia 3. Hypertension 4. Hyperlipidemia 5. Osteoarthritis 6. Anemia secondary to blood loss related to hip fracture and surgery Is adequately controlled. Mucous membranes are moist today and she is adequately hydrated. Recheck CBC in the a.m. Continue aspirin 81 mg p.o. twice daily for DVT prophylaxis per Dr. Padron Continue famotidine for ulcer prophylaxis. Code Visit Inpatient E&M: 88265 Subs Hosp L2
--- NOTE | 2019-01-10 16:43 | CASEMGMT ---
Social Work Note SW faxed referral to Savanna at [facility] and faxed updated clinicals to Nereida at [facility]. Plan: [facility] pending pre-cert Daisy Salazar SPECIALIST PHYSICIAN, EGG SEPARATOR
--- NOTE | 2019-01-10 17:09 | PCM.PN.ORT ---
Patient Problems: Active and Suspected Problems (Last Reviewed 01/02/18 @ 11:10 by Nettie Puentes) Closed right hip fracture (Acute) Subjective: Patient is postoperative day #1 from right hip cemented hemiarthroplasty. She denies chest pain or shortness of breath. No productive cough. Pain controlled. Sitting in chair. Objective: Right hip bandages on clean and dry. No calf pain or swelling bilaterally. Negative Homans sign bilaterally. Good active plantar flexion dorsiflexion toes and ankles. Equal leg lengths. No deformity of the hips or legs. Vital signs and laboratory work reviewed Postoperative x-rays AP and lateral of right hip reviewed showing cemented hemiarthroplasty without obvious loosening failure or fracture. - Physical Exam Vital Signs Temp Pulse Resp BP Pulse Ox 98.0 F 92 18 120/54 L 95 01/10/19 14:00 01/10/19 14:00 01/10/19 15:18 01/10/19 14:00 01/10/19 14:00 Oxygen Flow Rate (L/min) 2 Oxygen Delivery Method Nasal Cannula Weight: 61.5 kg Body Mass Index (BMI) 24.0 Intake and Output for Last 24 Hours 01/08/19 01/09/19 01/10/19 23:59 23:59 23:59 Intake Total 1854 / 1854 1622 / 1622 Output Total 1025 / 1025 275 / 275 Balance 829 / 829 1347 / 1347 Laboratory Tests Past 24 Hrs 01/10/19 01/10/19 05:38 05:38 WBC 7.8 RBC 3.14 L Hgb 9.7 L Hct 31.5 L MCV 100.3 H MCH 30.9 MCHC 30.8 L RDW 13.1 RDW Differential 45.8 H Plt Count 136 L MPV 11.2 Sodium 142 Potassium 4.1 Chloride 108 H Carbon Dioxide 26.0 Anion Gap 8 BUN 16 Creatinine 0.80 Estim Creat Clear Calc 48.72 Est GFR (MDRD) Af Amer 90 Est GFR (MDRD) Non-Af 74 BUN/Creatinine Ratio 20.1 H Glucose 93 Calcium 7.8 L Medical Necessity - Tobacco Use Smoking Status: Never smoker Assessment/Plan All Active Problems (Last Reviewed 01/02/18 @ 11:10 by Nettie Puentes) Closed right hip fracture (Acute) Closed left hip fracture (Acute) Leucocytosis (Acute) Hip fracture, left (Acute) Rhabdomyolysis (Acute) Right humeral fracture (Acute) Dislocation of right shoulder joint (Acute) Fall (Acute) Pneumonia (Acute) UTI (urinary tract infection) (Acute) Urinary retention (Acute) Right hip hemiarthroplasty postoperative day 1. Continue aspirin, DERECK toro, SCD. Continue with incentive spirometer. Weightbearing as tolerated right hip. Right hip dislocation precautions. From orthopedic standpoint can be discharged to ECF when arrangements made. Orthopedics signing off. Be notified if orthopedic concerns exist. Recommend following up in the orthopedic office in 10-12 days. Evaluation, x-rays, staple removal at that point.
[2019-01-10] MEDS: Morphine 2 MG/ML Syringe IV (18:04)
[2019-01-10] MEDS: 0.9% NaCl Peripheral Flush Adult/Peds IV (18:05)
--- NOTE | 2019-01-10 18:05 | NURSING ---
U.O.P 225ML X12 HRS - TEXT SENT TO DR IBARRA REGARDING SAME
[2019-01-10] MEDS: Ezetimibe 10 MG Tablet PO (22:03)
[2019-01-10] MEDS: Aspirin 81 MG TAB.CHEW PO (22:03)
[2019-01-11 02:12] VITALS: BP 100/58; PULSE 74; RESP 16; TEMP 37.1; O2SAT 96
[2019-01-11] MEDS: 0.9% NaCl Peripheral Flush Adult/Peds IV (02:20)
[2019-01-11] MEDS: Morphine 2 MG/ML Syringe IV (02:20)
[2019-01-11 06:51] LABS: Hematocrit 27.9 % (37-47); Hemoglobin 8.6 g/dl (12.0-15.0); Mean Corp Hgb Conc 30.8 g/gl (32-36); Mean Corpuscular Volume 100.7 fL (81-99); Mean Platelet Vol. 11.4 fl (6.2-12.0); Platelet Count 125 K/mm3 (150-450); Red Blood Count 2.77 M/mm3 (4.2-5.4); White Blood Count 6.7 K/mm3 (4.4-11.0)
[2019-01-11 06:56] LABS: Scan Indicated on CBC? Y/N NO
--- NOTE | 2019-01-11 07:41 | PCM.PROGNOTE ---
Patient Problems: Active and Suspected Problems (Last Reviewed 01/02/18 @ 11:10 by Nettie Puentes) Closed right hip fracture (Acute) S/P repair 01/[address] Kasi Padron Anemia due to blood loss, acute (Acute) Thrombocytopenia (Acute) Subjective: Postoperative day #2 The night hospitalist was called last evening for decreased urinary output and the patient received 1 L of IV fluids. All events of the past 24 hours been reviewed. She remains afebrile. Vital signs are stable. She is 96% saturated on room air today. Fluid balance is +4112 since admission. All lab was personally reviewed. White blood cell count is normal at 6.7. Hemoglobin is down to 8.6 but I think the drop may in part be due to hemodilution from IV fluids. Platelets today are 125,000. Objective: GENERAL: alert, Cooperative, NAD ORAL: moist mucosa, no mucosal lesions NECK: No JVD, supple, trachea midline LUNGS: CTA, symmetric chest expansion HEART: RRR, Normal S1 and S2, no rub, no gallop ABDOMEN: soft, NT, ND, BS present, no guarding with palpation EXTREMITIES: no edema, no cyanosis, no calf tenderness, the dressing over the right hip is dry, intact sensation to both feet. SKIN: No rashes, no breakdown NEUROLOGIC: no focal neurologic deficits PSYCH: appropriate, normal affect, pleasant - Physical Exam Vital Signs Temp Pulse Resp BP Pulse Ox 98.7 F 74 16 100/58 L 96 01/11/19 02:12 01/11/19 02:12 01/11/19 02:12 01/11/19 02:12 01/11/19 02:12 Oxygen Flow Rate (L/min) 2 Oxygen Delivery Method Room Air Weight: 135 lb 9.349 oz Body Mass Index (BMI) 24.0 Intake and Output for Last 24 Hours 01/09/19 01/10/19 01/11/19 23:59 23:59 23:59 Intake Total 1854 / 1854 2714 / 2714 1094 / 1094 Output Total 1025 / 1025 375 / 375 150 / 150 Balance 829 / 829 2339 / 2339 944 / 944 Laboratory Tests Past 24 Hrs 01/11/19 06:26 WBC 6.7 RBC 2.77 L Hgb 8.6 L Hct 27.9 L MCV 100.7 H MCH 31.0 MCHC 30.8 L RDW 13.0 RDW Differential 46.0 H Plt Count 125 L MPV 11.4 Medical Necessity - Tobacco Use Smoking Status: Never smoker Assessment/Plan All Active Problems (Last Reviewed 01/02/18 @ 11:10 by Nettie Puentes) Closed right hip fracture (Acute) Anemia due to blood loss, acute (Acute) Thrombocytopenia (Acute) Closed left hip fracture (Acute) Fall (Acute) Dislocation of right shoulder joint (Resolved) Hip fracture, left (Resolved) Pneumonia (Resolved) Rhabdomyolysis (Resolved) Right humeral fracture (Resolved) UTI (urinary tract infection) (Resolved) Impressions 1. Traumatic right hip fracture secondary to fall 2. Dementia 3. Hypertension 4. Hyperlipidemia 5. Osteoarthritis 6. Anemia secondary to blood loss related to hip fracture and surgery Is adequately controlled. Mucous membranes are moist today and she is adequately hydrated. Recheck CBC in the a.m. Continue aspirin 81 mg p.o. twice daily for DVT prophylaxis per Dr. Padron Continue famotidine for ulcer prophylaxis. Code Visit Inpatient E&M: 49929 Subs Hosp L2
[2019-01-11 08:05] VITALS: O2SAT 91
[2019-01-11 08:51] VITALS: BP 123/56; PULSE 74; RESP 16; TEMP 36.9; O2SAT 88; O2SAT 93
[2019-01-11] MEDS: oxyCODONE 5 MG Tablet PO (08:54)
[2019-01-11] MEDS: Acetaminophen 500 MG Tablet 1000 MG PO ×2 (08:54→13:20)
[2019-01-11] MEDS: Pyridoxine HCl 100 MG Tablet 200 MG PO (08:55)
[2019-01-11] MEDS: Donepezil HCl 10 MG Tablet PO (08:55)
[2019-01-11] MEDS: Sertraline 50 MG Tablet PO (08:55)
[2019-01-11] MEDS: Famotidine 20 MG Tablet 40 MG PO (08:55)
[2019-01-11] MEDS: Cyanocobalamin 500 MCG Tablet 1000 MCG PO (08:56)
[2019-01-11] MEDS: Aspirin 81 MG TAB.CHEW PO (08:56)
[2019-01-11] MEDS: Losartan Potassium 50 MG Tablet PO (08:56)
[2019-01-11] MEDS: Nadolol 40 MG Tablet PO (08:56)
[2019-01-11] MEDS: Docusate Sodium 100 MG Capsule PO (08:56)
[2019-01-11] MEDS: Senna Tablet 1 TABLET PO (08:56)
--- NOTE | 2019-01-11 12:41 | PCM.TXEXTCAR ---
- Diet 01/10/19 08:08 Diet: Regular Diet Is pt able to select menu?: No - Routine Orders/Code Status Enema Type: Fleetz Enema Frequency: Daily PRN Suppository Type: Dulcolax 10mg Suppository Frequency: Daily PRN O2 Liters per Minute: 1-2 O2 Frequency: PRN Keep PO Greater than or Equal to (%): 90 Routine Lab Work: - - C, BMP, magnesium in 1 week Code Status: DNRCC-A - Wound(s) rt hip Wound Type: Surgical Incision - Suggestions for Active Care Change Position every (hours): 2 - Therapies Weight Bearing: Weight bearing as tolerated Extremity Affected:: Right Lower Physical Therapy: Eval and Treat Occupational Therapy: Eval and Treat - Problem/Diagnosis (1) Closed right hip fracture Status: Acute Comment: S/P repair 01/[address] Kasi Padron Current Visit: Yes (2) Closed left hip fracture Status: Acute Current Visit: No (3) Dislocation of right shoulder joint Status: Resolved Current Visit: No (4) Fall Status: Acute Current Visit: No (5) Hip fracture, left Status: Resolved Current Visit: No (6) Pneumonia Status: Resolved Current Visit: No (7) Rhabdomyolysis Status: Resolved Current Visit: No (8) Right humeral fracture Status: Resolved Current Visit: No (9) UTI (urinary tract infection) Status: Resolved Current Visit: No (10) Urinary retention Status: Chronic Current Visit: No (11) Depression Status: Chronic Current Visit: No (12) Gait instability Status: Chronic Current Visit: No (13) Hyperlipidemia Status: Chronic Current Visit: No (14) Hypertension Status: Chronic Current Visit: No (15) Osteoarthritis of left hip Status: Chronic Current Visit: No (16) Dementia Status: Chronic Current Visit: Yes (17) Anemia due to blood loss, acute Status: Acute Current Visit: Yes (18) Thrombocytopenia Status: Acute Current Visit: Yes - Allergies/Procedures Done in Hospital Allergies/Adverse Reactions: Allergies niacin [From Niaspan Extended-Release] Allergy (Verified 01/08/19 23:15) Shortness of breath venom-honey bee [bee venom (honey bee)] Allergy (Verified 01/08/19 23:15) Anaphylaxis atorvastatin calcium [From Lipitor] Adverse Reaction (Verified 01/08/19 23:15) Nausea Procedures: - - ORIF right hip on 01/09/[address] Kasi Padron - Type of Care/Length of Stay Estimated LOS: More Than 30 Days Type of Care Needed: Skilled Rehab Potential: Fair Prognosis: Fair - Additional Orders/Day of Discharge Additional Orders: She will need to be ASA 81 mg BID for 1 month for DVT prophylaxis and after 1 month can decrease to daily H&P will serve as current which was dated: 01/09/19 Day of Discharge: 01/11/19 - Follow Up Care Primary Care Physician: Remi Abdi, ARCHITECTURAL PRACTICE MANAGER-C [Primary Care Provider] - Please follow up with your Primary Care Physician in: 1 week Please Follow Up With: [facility] - Dr. Kasi Padron When: 2 weeks
--- NOTE | 2019-01-11 12:56 | PCM.DC.SUM ---
Discharge Date and Diagnosis - Problem List Patient Problems: Active and Suspected Problems (Last Reviewed 01/02/18 @ 11:10 by Nettie Puentes) Closed right hip fracture (Acute) S/P repair 01/[address] Kasi Pdaron Anemia due to blood loss, acute (Acute) Thrombocytopenia (Acute) Date of Admission: 01/09/19 Date of Discharge: 01/11/19 - Primary Discharge Diagnosis Active and Suspected Problems (Last Reviewed 01/02/18 @ 11:10 by Nettie Puentes) Closed right hip fracture (Acute) S/P repair 01/[address] Kasi Padron Anemia due to blood loss and probably hemodilution, acute (Acute) Thrombocytopenia (Acute) - Secondary Discharge Diagnosis Chronic Problems (Last Reviewed 01/02/18 @ 11:10 by Nettie Puentes) Dementia (Chronic) Hyperlipidemia (Chronic) Hypertension (Chronic) Depression (Chronic) Osteoarthritis (Chronic) Gait instability (Chronic) Urinary retention (Chronic) Hospital Course and Treatment Imaging Results: Clinical Impression(s) from Imaging Studies Hip/Pelvis X-Ray 01/08/19 23:13 IMPRESSION: Significantly angulated and displaced fracture of the right femoral neck. Electronically Signed: Tree Crooks MD at 23:36 EDT , Service support , Chest X-Ray 01/08/19 23:20 IMPRESSION: Borderline cardiomegaly and mild pulmonary congestion. Electronically Signed: Chantel Padron MD at 3:05 EDT , Service support , Hip X-Ray 01/09/19 17:50 IMPRESSION: Status post right total hip arthroplasty. Electronically Signed: Mark Carmona MD at 18:41 EDT , Service support , Laboratory Results - last 24 hr 01/11/19 06:26 WBC 6.7 RBC 2.77 L Hgb 8.6 L Hct 27.9 L MCV 100.7 H MCH 31.0 MCHC 30.8 L RDW 13.0 RDW Differential 46.0 H Plt Count [address] Kasi [facility]ron[facility] Operations: - - Right hip hemiarthroplasty for closed fracture by Dr. Padron on 01/09/2019 Procedures: None Summary of Care Provided: The patient is a 78-year-old female with a past medical history of hyperlipidemia, dementia, hypertension, left MARBELLA, depression, osteoarthritis and gait instability who presented to the emergency department at [facility] on 01/09/2019 after having a fall at the [place] where she resides. An x-ray of the right hip done in the emergency department showed a significantly angulated and displaced fracture of the right femoral neck. Platelets and hemoglobin were within normal limits. BMP was remarkable for a BUN of 19 with a creatinine of 0.81. Chest x-ray per my review showed no pleural effusion, infiltrate or significant pulmonary vascular congestion. She was admitted to the medical surgical floor and medication for pain management was ordered. EKG showed normal sinus rhythm with a short OR interval but no suspicious ST or T wave changes that would indicate ischemia. Dr. Kasi Padron was consulted regarding the fractured hip. She was taken to surgery and had a right hemiarthroplasty. Postoperatively she had a decrease in hemoglobin from 12.5-8.6 on the date of discharge and this is likely due to hemodilution + some blood loss with the surgery. She has no obvious source of bleeding and the dressing on the wound has been dry. Her last BM was on 01/08/19. On the day of DC she stated her pain was well managed and she denied N/V/abdominal pain. No cough. She gets sleepy after OXY IR and so she was started on ATC Tylenol 1 GM q 8 hours. should not need the OXY IR for much longer. She is on aspirin 81 mg twice daily for DVT prophylaxis and should remain on this for 1 month. She will continue on Pepcid 40 mg once daily for ulcer prophylaxis while she is on aspirin twice daily. She will follow-up with [facility] in the office in 2 weeks to check the incision. PHYSICAL EXAM: GENERAL: very sleepy, arouses if I call her name but then falls back to sleep, Cooperative, NAD ORAL: moist mucosa, no mucosal lesions NECK: No JVD, supple, trachea midline LUNGS: CTA, diminished, symmetric chest expansion, no conversational dyspnea no accessory muscle use HEART: RRR, Normal S1 and S2, no rub, no gallop ABDOMEN: soft, NT, ND, BS present and they are not hyperactive, no guarding with palpation EXTREMITIES: no edema, no cyanosis, no calf tenderness, the dressing is dry SKIN: No rashes, no breakdown NEUROLOGIC: no focal neurologic deficits PSYCH: appropriate, normal affect, pleasant This note was generated with [employer] dictation software. It may contain incorrect words, spelling, and punctuation that were not noted in checking the note before signing. Patient Problems: Active and Suspected Problems (Last Reviewed 01/02/18 @ 11:10 by Nettie Puentes) Closed right hip fracture (Acute) S/P repair 01/[address] Kasi Padron Anemia due to blood loss, acute (Acute) Thrombocytopenia (Acute) - Physical Exam Vital Signs Temp Pulse Resp BP Pulse Ox 98.5 F 74 16 123/56 H 93 01/11/19 08:51 01/11/19 08:51 01/11/19 08:51 01/11/19 08:51 01/11/19 08:51 Oxygen Flow Rate (L/min) 2 Oxygen Delivery Method Nasal Cannula Weight: 135 lb 9.349 oz Body Mass Index (BMI) 24.0 Intake and Output for Last 24 Hours 01/09/19 01/10/19 01/11/19 23:59 23:59 23:59 Intake Total 1854 / 1854 2714 / 2714 1294 / 1294 Output Total 1025 / 1025 375 / 375 400 / 400 Balance 829 / 829 2339 / 2339 894 / 894 Laboratory Tests Past 24 Hrs 01/11/19 06:26 WBC 6.7 RBC 2.77 L Hgb 8.6 L Hct 27.9 L MCV 100.7 H MCH 31.0 MCHC 30.8 L RDW 13.0 RDW Differential 46.0 H Plt Count 125 L MPV 11.4 Home Medications: Medications to take at Discharge Cyanocobalamin [Vitamin B12] 1,000 mcg PO DAILY@0800 04/17/16 Ezetimibe [Zetia] 10 mg PO QHS 04/17/16 Famotidine [Pepcid] 40 mg PO DAILY 04/17/16 Nadolol [Corgard (Beta Randee)] 40 mg PO DAILY 04/17/16 Sertraline HCl [Zoloft] 50 mg PO DAILY 04/17/16 Cholecalciferol (Vitamin D3) [Vitamin D3] 2,000 unit PO DAILY 11/18/17 [place]-3 Fatty Acids/Fish Oil [Fish Oil 1,000 mg Capsule] 1,000 mg PO BID 11/18/17 Pyridoxine HCl [Vitamin B-6] 200 mg PO DAILY 11/18/17 Losartan Potassium [Cozaar] 50 mg PO DAILY 01/12/18 Sennosides [Senna] 8.6 mg PO DAILY 01/12/18 proMETHazine tablet [Phenergan tablet] 25 mg PO Q4H PRN PRN #10 tab 01/18/18 Donepezil HCl [Aricept] 10 mg PO DAILY 03/06/18 Docusate Sodium [Colace] 100 mg PO BID PRN PRN #10 cap 03/08/18 Docusate Sodium [Colace] 100 mg PO DAILY 01/09/19 Acetaminophen [Tylenol] 1,000 mg PO Q8 tablet 01/11/19 Aspirin [Aspirin, Baby] 81 mg PO BID tab.chew 01/11/19 Oxycodone [Oxyir] 5 mg PO Q6H PRN PRN 7 Days #15 tab 01/11/19 Following Prescrptions Were Given to Patient: Oxycodone [Oxyir] 5 mg PO Q6H PRN PRN 7 Days #15 tab PRN Reason: Severe Pain (-08/09) Primary Care Physician: Remi Abdi NP-C [Primary Care Provider] - Please follow up with your Primary Care Physician in: 1 week Please Follow Up With: [facility] - Dr. Kasi Padron When: 2 weeks Minutes spent on discharge:: 38 Patient Condition:: Good Medical Necessity - Tobacco Use Smoking Status: Never smoker Tobacco Use: Non-smoker Meaningful Use Info Meaningful Use Diagnoses (Choose all that apply): None applicable Code Visit Inpatient E&M: 09550 Disch Hosp
--- NOTE | 2019-01-11 13:12 | DS.PCM_ITS ---
Discharge Date and Diagnosis - Problem List Patient Problems: Active and Suspected Problems (Last Reviewed 01/02/18 @ 11:10 by Nettie Puentes) Closed right hip fracture (Acute) S/P repair 01/[address] Kasi Padron Anemia due to blood loss, acute (Acute) Thrombocytopenia (Acute) Date of Admission: 01/09/19 Date of Discharge: 01/11/19 - Primary Discharge Diagnosis Active and Suspected Problems (Last Reviewed 01/02/18 @ 11:10 by Nettie Puentes) Closed right hip fracture (Acute) S/P repair 01/[address] Kasi Pdaron Anemia due to blood loss and probably hemodilution, acute (Acute) Thrombocytopenia (Acute) - Secondary Discharge Diagnosis Chronic Problems (Last Reviewed 01/02/18 @ 11:10 by Nettie Puentes) Dementia (Chronic) Hyperlipidemia (Chronic) Hypertension (Chronic) Depression (Chronic) Osteoarthritis (Chronic) Gait instability (Chronic) Urinary retention (Chronic) Hospital Course and Treatment Imaging Results: Clinical Impression(s) from Imaging Studies Hip/Pelvis X-Ray 01/08/19 23:13 IMPRESSION: Significantly angulated and displaced fracture of the right femoral neck. Electronically Signed: Tree Crooks MD at 23:36 EDT , Service support , Chest X-Ray 01/08/19 23:20 IMPRESSION: Borderline cardiomegaly and mild pulmonary congestion. Electronically Signed: Chantel Padron MD at 3:05 EDT , Service support , Hip X-Ray 01/09/19 17:50 IMPRESSION: Status post right total hip arthroplasty. Electronically Signed: Mark Carmona MD at 18:41 EDT , Service support , Laboratory Results - last 24 hr 01/11/19 06:26 WBC 6.7 RBC 2.77 L Hgb 8.6 L Hct 27.9 L MCV 100.7 H MCH 31.0 MCHC 30.8 L RDW 13.0 RDW Differential 46.0 H Plt Count [address] Kasi Padron-[facility] Operations: - - Right hip hemiarthroplasty for closed fracture by Dr. Padron on 01/09/2019 Procedures: None Summary of Care Provided: The patient is a 78-year-old female with a past medical history of hyperlipidemia, dementia, hypertension, left MARBELLA, depression, osteoarthritis and gait instability who presented to the emergency department at [facility] on 01/09/2019 after having a fall at the [place] where she resides. An x-ray of the right hip done in the emergency department showed a significantly angulated and displaced fracture of the right femoral neck. Platelets and hemoglobin were within normal limits. BMP was remarkable for a BUN of 19 with a creatinine of 0.81. Chest x-ray per my review showed no pleural effusion, infiltrate or significant pulmonary vascular congestion. She was admitted to the medical surgical floor and medication for pain management was ordered. EKG showed normal sinus rhythm with a short [place] interval but no suspicious ST or T wave changes that would indicate ischemia. Dr. Kasi Padron was consulted regarding the fractured hip. She was taken to surgery and had a right hemiarthroplasty. Postoperatively she had a decrease in hemoglobin from 12.5- 8.6 on the date of discharge and this is likely due to hemodilution + some blood loss with the surgery. She has no obvious source of bleeding and the dressing on the wound has been dry. Her last BM was on 01/08/19. On the day of DC she stated her pain was well managed and she denied N/V/abdominal pain. No cough. She gets sleepy after OXY IR and so she was started on ATC Tylenol 1 GM q 8 hours. should not need the OXY IR for much longer. She is on aspirin 81 mg twice daily for DVT prophylaxis and should remain on this for 1 month. She will continue on Pepcid 40 mg once daily for ulcer prophylaxis while she is on aspirin twice daily. She will follow-up with [facility] in the office in 2 weeks to check the incision. PHYSICAL EXAM: GENERAL: very sleepy, arouses if I call her name but then falls back to sleep, Cooperative, NAD ORAL: moist mucosa, no mucosal lesions NECK: No JVD, supple, trachea midline LUNGS: CTA, diminished, symmetric chest expansion, no conversational dyspnea no accessory muscle use HEART: RRR, Normal S1 and S2, no rub, no gallop ABDOMEN: soft, NT, ND, BS present and they are not hyperactive, no guarding with palpation EXTREMITIES: no edema, no cyanosis, no calf tenderness, the dressing is dry SKIN: No rashes, no breakdown NEUROLOGIC: no focal neurologic deficits PSYCH: appropriate, normal affect, pleasant This note was generated with [employer] dictation software. It may contain incorrect words, spelling, and punctuation that were not noted in checking the note before signing. Patient Problems: Active and Suspected Problems (Last Reviewed 01/02/18 @ 11:10 by Nettie Puentes) Closed right hip fracture (Acute) S/P repair 01/[address] Kasi Padron Anemia due to blood loss, acute (Acute) Thrombocytopenia (Acute) - Physical Exam Vital Signs Temp Pulse Resp BP Pulse Ox 98.5 F 74 16 123/56 H 93 01/11/19 08:51 01/11/19 08:51 01/11/19 08:51 01/11/19 08:51 01/11/19 08:51 Oxygen Flow Rate (L/min) 2 Oxygen Delivery Method Nasal Cannula Weight: 135 lb 9.349 oz Body Mass Index (BMI) 24.0 Intake and Output for Last 24 Hours 01/09/19 01/10/19 01/11/19 23:59 23:59 23:59 Intake Total 1854 / 1854 2714 / 2714 1294 / 1294 Output Total 1025 / 1025 375 / 375 400 / 400 Balance 829 / 829 2339 / 2339 894 / 894 Laboratory Tests Past 24 Hrs 01/11/19 06:26 WBC 6.7 RBC 2.77 L Hgb 8.6 L Hct 27.9 L MCV 100.7 H MCH 31.0 MCHC 30.8 L RDW 13.0 RDW Differential 46.0 H Plt Count 125 L MPV 11.4 Home Medications: Medications to take at Discharge Cyanocobalamin [Vitamin B12] 1,000 mcg PO DAILY@0800 04/17/16 Ezetimibe [Zetia] 10 mg PO QHS 04/17/16 Famotidine [Pepcid] 40 mg PO DAILY 04/17/16 Nadolol [Corgard (Beta Randee)] 40 mg PO DAILY 04/17/16 Sertraline HCl [Zoloft] 50 mg PO DAILY 04/17/16 Cholecalciferol (Vitamin D3) [Vitamin D3] 2,000 unit PO DAILY 11/18/17 [place]-3 Fatty Acids/Fish Oil [Fish Oil 1,000 mg Capsule] 1,000 mg PO BID 11/18/17 Pyridoxine HCl [Vitamin B-6] 200 mg PO DAILY 11/18/17 Losartan Potassium [Cozaar] 50 mg PO DAILY 01/12/18 Sennosides [Senna] 8.6 mg PO DAILY 01/12/18 proMETHazine tablet [Phenergan tablet] 25 mg PO Q4H PRN PRN #10 tab 01/18/18 Donepezil HCl [Aricept] 10 mg PO DAILY 03/06/18 Docusate Sodium [Colace] 100 mg PO BID PRN PRN #10 cap 03/08/18 Docusate Sodium [Colace] 100 mg PO DAILY 01/09/19 Acetaminophen [Tylenol] 1,000 mg PO Q8 tablet 01/11/19 Aspirin [Aspirin, Baby] 81 mg PO BID tab.chew 01/11/19 Oxycodone [Oxyir] 5 mg PO Q6H PRN PRN 7 Days #15 tab 01/11/19 Following Prescrptions Were Given to Patient: Oxycodone [Oxyir] 5 mg PO Q6H PRN PRN 7 Days #15 tab PRN Reason: Severe Pain (-08/09) Primary Care Physician: Remi Abdi NP-C [Primary Care Provider] - Please follow up with your Primary Care Physician in: 1 week Please Follow Up With: [facility] - Dr. Kasi Padron When: 2 weeks Minutes spent on discharge:: 38 Patient Condition:: Good Medical Necessity - Tobacco Use Smoking Status: Never smoker Tobacco Use: Non-smoker Meaningful Use Info Meaningful Use Diagnoses (Choose all that apply): None applicable Code Visit Inpatient E&M: 72229 Disch Hosp
[2019-01-11 13:15] VITALS: BP 99/56; PULSE 70; RESP 14; TEMP 36.8; O2SAT 93
--- NOTE | 2019-01-11 13:15 | CASEMGMT ---
Social Work Note ABRAM spoke with Massiel at [facility] and got approval for pt to discharge to [facility] skilled today. ABRAM updated physician. Physician is discharging pt today to [facility]. ABRAM faxed completed discharge paperwork to [facility] including transfer to extended care facility, signed medication list and any scripts. Original in SNF folder and copy on pt's chart. ABRAM completed [facility] in [facility]. Original in SNF folder and copy on pt's chart. [employer] arranged for transportation. ABRAM placed a call to Tiffanie at [facility] and updated on discharge and transportation time. Pt's daughter at [employer] [facility] [employer] [facility] updated her on discharge today and time. Plan: Pt to discharge to [facility] skilled today Daisy Salazar HARVEST FIELD TICKETER, BIG DATA SOFTWARE ENGINEER
--- NOTE | 2019-01-11 13:39 | NURSING ---
report called to JACKELIN Coello at [facility] for discharge.
== END 2019-01-11 13:29 | DRG 470 ==
LOC: ED 23:25 → MS3 01-09 01:06
PROVIDERS: Orthopaedic Surgery; Admitting Provider Hospitalist; Emergency Provider Emergency Medicine; Visit Provider Internal Medicine
PROC: 0SRR0J9 Replacement of Right Hip Joint, Femoral Surface with Synthetic Substitute, Cemented, Open Approach (ICD-10-PCS; CPT 27125; principal; 2019-01-09 10:15)
DX: S72.001A Fracture of unspecified part of neck of right femur, initial encounter for closed fracture (principal); D62 Acute posthemorrhagic anemia; W18.11XA Fall from or off toilet without subsequent striking against object, initial encounter; Y93.89 Activity, other specified; Y92.129 Unspecified place in nursing home as the place of occurrence of the external cause; D69.6 Thrombocytopenia, unspecified; F03.90 Unspecified dementia, unspecified severity, without behavioral disturbance, psychotic disturbance, mood disturbance, and anxiety; E78.5 Hyperlipidemia, unspecified; I10 Essential (primary) hypertension; F32.9 Major depressive disorder, single episode, unspecified; F41.9 Anxiety disorder, unspecified; R26.9 Unspecified abnormalities of gait and mobility; R33.9 Retention of urine, unspecified; K21.9 Gastro-esophageal reflux disease without esophagitis; Z96.642 Presence of left artificial hip joint; Z79.82 Long term (current) use of aspirin; Z79.899 Other long term (current) drug therapy
CPT/HCPCS: 36415; 71045; 73502; 80048; 85025; 85027; 85610; 85730; 86850; 86900; 93005; 97162; 97167; 99285; C1776; J7030; J7040; J7120; A4216; J2405

== ENCOUNTER → 2022-04-03 | Outpatient (CLI) | payer MEDICARE, OTHER, SELFPAY ==
[2022-04-03 07:29] LABS: Absolute Lymphocyte Count 2.05 X10^3/uL (0.83-4.51); Absolute Neutrophil Count 2.1 X10^3/uL (2.0-7.7); Basophil# 0.05 X10^3/uL; Basophil% 1.1 % (0-1); Eosinophil# 0.04 X10^3/uL; Eosinophils% 0.8 % (0-5); Hematocrit 42.7 % (37-47); Hemoglobin 13.4 g/dL (12.0-15.0); Lymphocyte # 2.05 X10^3/ul (0.83-4.51); Lymphocyte % 43.5 % (19-41); Mean Corp Hgb Conc 31.4 g/dL (32-36); Mean Corpuscular Hgb 31.2 pg (27.0-32.0); Mean Corpuscular Volume 99.3 fL (81-99); Monocyte# 0.42 X10^3/uL; Monocyte% 8.9 % (0-10); NRBC Flagged by Analyzer 0 % (0-5); Neutrophil # 2.14 X10^3/uL (2.7-7.7); Neutrophil % 45.5 % (47-70); Platelet Count 228 K/mm3 (150-450); RBC Distribution Width CV 12.6 % (11.6-14.6); RBC Distribution Width SD 45.5 fl (35.1-43.9); White Blood Count 4.7 K/mm3 (4.4-11.0)
[2022-04-03 07:54] LABS: ALB/GLOB Ratio 1.1 RATIO (0.9-2.4); AST(SGOT) 45 U/L (15-37); Alanine Aminotransfer ALT/SGPT 71 U/L (13-56); Alkaline Phosphatase 115 U/L (45-117); Anion Gap 4 (5-15); BUN 17 mg/dL (7-18); BUN/Creat Ratio 22.1 RATIO (10-20); Calcium,Total 9.5 mg/dL (8.5-10.1); Chloride 109 mmol/L (98-107); Creatinine, Serum 0.77 mg/dL (0.55-1.02); EST Glomerular Filtration Rate 77 mL/min (>60); Est Glom Filt Rate - Afr Amer 93 mL/min (>60); Globulin 3.6 g/dL (2.2-4.2); Glucose 88 mg/dL (74-106); Protein, Total 7.6 g/dL (6.4-8.2); Sodium Level 139 mmol/L (136-145); Thyroid Stim Hormone (TSH) 2.06 uIU/mL (0.358-3.74)
== END | disposition home or self-care (01) ==
LOC: PR 07:03
PROVIDERS: PCP Nurse Practitioner Adult Health; Referring Provider Nurse Practitioner Adult Health; Visit Provider Nurse Practitioner Adult Health
DX: I10 Essential (primary) hypertension (principal)
CPT/HCPCS: 36415; 80053; 84443; 85025

== ENCOUNTER 2022-11-21 08:48 | Emergency (ER) | payer MEDICARE, OTHER, SELFPAY ==
[2022-11-21 08:49] VITALS: BP 150/64; PULSE 48; RESP 16; TEMP 36.2; O2SAT 100; BMI 17.3
--- NOTE | 2022-11-21 09:00 | RAD_ITS ---
STUDY: X-RAY - PELVIS AND RIGHT HIP REASON FOR EXAM: Female, 82 years old. KEEPS GIVING OUT TECHNIQUE: One view of the pelvis was obtained. COMPARISON: Right hip x-ray dated January 16, 2019 FINDINGS: There is a non-specific bowel gas pattern. Normal visualized soft tissue structures. Normal bilateral iliac wings, sacroiliac joints and visualized sacrum. Normal visualized bilateral superior and inferior pubic rami. Normal pubic symphysis. Normal ischial tuberosities. The bilateral hip prostheses are intact. There is no demonstrated dislocation of the acetabular and femoral components. No hardware complications are seen. No demonstrated cortical erosion or abnormal lucency at the bone hardware interface. There are no visualized acute fractures of the pelvic or hip bony structures. Atherosclerotic calcifications noted. RAD/HIP, UNI W/ Pelvis 2-3 Views IMPRESSION: 1. No demonstrated hardware dislocation. No acute fractures. Electronically Signed: Lamberto Santizo MD at 9:28 EST ,
--- NOTE | 2022-11-21 09:55 | ED.VIS.LOWEX ---
HPI History of Present Illness Chief Complaint: Lower Extremity Injury Narrative Narrative: 82-year-old nonverbal female presenting with apparent right hip pain per family. Patient was being assisted/transferred to the toilet yesterday and her leg partially came out from under her. Patient did not fall to the ground. She was able to be transferred to the toilet successfully. She is able to to transfer back. Patient does not walk on her own. Family reports that they were concerned that it may be dislocated as she appears to be favoring her left leg on transfer. Family states that she has been otherwise healthy. No fevers, chills, nausea, vomiting. She is eating and drinking normally. She is making normal urine and stool. PFSH PFSH Home Medications cyanocobalamin (vitamin B-12) 500 mcg tablet 1,000 mcg PO DAILY@0800 supplement 04/17/16 [History Last Taken 03/05/18] ezetimibe 10 mg tablet 10 mg PO QHS cholesterol 04/17/16 [History Last Taken 03/05/18] famotidine 40 mg tablet 40 mg PO DAILY reflux 04/17/16 [History Last Taken 04/16/16 21:00] nadolol 40 mg tablet 40 mg PO DAILY blood pressure 04/17/16 [History Last Taken 03/05/18] sertraline 100 mg tablet 50 mg PO DAILY depression 04/17/16 [History Last Taken 03/05/18] cholecalciferol (vitamin D3) 50 mcg (2,000 unit) capsule 2,000 unit PO DAILY supplement 11/18/17 [History Last Taken 03/05/18] omega-3 fatty acids-fish oil 340 mg-1,000 mg capsule 1,000 mg PO BID supplement 11/18/17 [History Last Taken 03/05/18] pyridoxine (vitamin B6) 100 mg tablet 200 mg PO DAILY supplement 11/18/17 [History Last Taken 03/05/18] losartan 25 mg tablet 50 mg PO DAILY bp 01/12/18 [History Last Taken 03/05/18] sennosides 8.6 mg tablet 8.6 mg PO DAILY bowel 01/12/18 [History Last Taken 03/05/18] promethazine 25 mg tablet 25 mg PO Q4H PRN PRN Nausea #10 tabs 01/18/18 [Rx Last Taken Unknown] donepezil 10 mg tablet (Aricept) 10 mg PO DAILY memory 03/06/18 [History Last Taken 03/05/18] docusate sodium 100 mg capsule 100 mg PO BID PRN PRN Constipation #10 caps 03/08/18 [Rx Last Taken Unknown] docusate sodium 100 mg capsule (DOK) 100 mg PO DAILY bowels 01/09/19 [History Last Taken Unknown] acetaminophen 500 mg tablet 1,000 mg PO Q8 01/11/19 [Rx Last Taken Unknown] aspirin 81 mg chewable tablet 81 mg PO BID 01/11/19 [Rx Last Taken Unknown] Allergy/AdvReac Type Severity Reaction Status Date / Time niacin Allergy Shortness Verified 01/08/19 23:15 [From Niaspan of breath Extended-Release] venom-honey bee Allergy Anaphylaxis Verified 01/08/19 23:15 [bee venom (honey bee)] atorvastatin calcium AdvReac Nausea Verified 01/08/19 23:15 [From Lipitor] Surgical History 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 Social History Smoking Status: Never smoker ROS ROS ED Review of Systems ROS Unobtainable: due to mental status EXAM Physical Exam Const Vital Signs: 11/21/22 08:49 Temperature 97.1 F L Temperature Source Temporal Pulse Rate 48 L Respiratory Rate 16 Blood Pressure 150/64 H Blood Pressure Mean 92 Pulse Ox 100 Positive well nourished General Appearance ED: NAD HEENT Reports moist mucous membranes normocephalic and atraumatic Resp normal respiratory effort and no retractions Auscultation: Negative for rales, rhonchi or wheezes Cardio regular rate GI non-tender Extremity normal to inspection and full ROM Psych Psych Narrative: Mental status at baseline/nonverbal Skin no wounds MDM MDM MDM Narrative Medical decision making narrative: Patient presenting with his family out of concern that she might of dislocated her hip. She did not favoring her left side. They believe the right side may be tender. No limited range of motion on examination. Patient does not appear to be tender anywhere. Family reports that she is been otherwise healthy and eating and drinking normally. Making normal urine and stool. No fevers or any other red flags. Requested x-ray to make sure that the previous total hip replacement is in place. This was obtained and on my interpretation there are no acute fractures or subluxation. Hardware looks to be in place for radiologist represents and agrees. Given this patient stable for discharge home. Family request transport by EMS. Impression: 1. Right hip strain Radiography Diagnostic Testing: Clinical Impression(s) from Imaging Studies Hip/Pelvis X-Ray 11/21/22 09:00 IMPRESSION: 1. No demonstrated hardware dislocation. No acute fractures. Electronically Signed: Lamberto Santizo MD at 9:28 EST , Discharge Plan Triage Chief Complaint: Lower Extremity Injury ED Provider: Pb Hurtado Dx/Rx/DC Orders Instructions: ED Hip Strain Prescriptions: No Action famotidine 40 MG tablet 40 mg PO DAILY Label Comments: heartburn sertraline 100 MG tablet 50 mg PO DAILY Label Comments: depression cyanocobalamin (vitamin B-12) 500 MCG tablet 1,000 mcg PO DAILY@0800 Label Comments: B12 vitamin nadolol 40 MG tablet 40 mg PO DAILY Label Comments: blood pressure ezetimibe 10 MG tablet 10 mg PO QHS Label Comments: CHOLESTEROL pyridoxine (vitamin B6) 100 MG tablet 200 mg PO DAILY Label Comments: vitamin B6 supplement omega-3 fatty acids-fish oil 1 EACH capsule 1,000 mg PO BID Label Comments: Vitamin cholecalciferol (vitamin D3) 2,000 UNIT capsule 2,000 unit PO DAILY Label Comments: vitamin D supplement sennosides 8.6 MG tablet 8.6 mg PO DAILY Label Comments: prevent constipation losartan 25 MG tablet 50 mg PO DAILY Label Comments: blood pressure promethazine 25 MG tablet 25 mg PO Q4H PRN PRN (Reason: Nausea) Qty: 10 0RF donepezil [Aricept] 10 MG tablet 10 mg PO DAILY docusate sodium 100 MG capsule 100 mg PO BID PRN PRN (Reason: Constipation) Qty: 10 0RF docusate sodium [DOK] 100 MG capsule 100 mg PO DAILY acetaminophen 500 MG tablet 1,000 mg PO Q8 0RF aspirin 81 MG Tab.Chew 81 mg PO BID 0RF Primary Care Provider: Daja Ferguson Referrals: Daja Ferguson [Primary Care Provider] - Disposition Disposition: Home, Self Care
== END 2022-11-21 10:36 | disposition home or self-care (01) ==
PROVIDERS: Emergency Provider Student in an Organized Health Care Education/Training Program; Visit Provider Student in an Organized Health Care Education/Training Program
DX: S73.101A Unspecified sprain of right hip, initial encounter (principal); X58.XXXA Exposure to other specified factors, initial encounter
CPT/HCPCS: 73502; 99284